=== PATIENT | female | born 1950 | race Caucasian/White ===

== ENCOUNTER 2019-11-20 13:22 | Outpatient (CLI) | payer OTHER, SELFPAY ==
--- NOTE | 2019-11-20 13:24 | ECG_ITS ---
Measurements Intervals [place] Rate: 56 P: 49 [place]: 165 QRS: -7 QRSD: 92 T: 32 QT: 401 QTc: 388 Interpretive Statements SINUS BRADYCARDIA LOW QRS VOLTAGE IN PRECORDIAL LEADS BORDERLINE R WAVE PROGRESSION, ANTERIOR LEADS BORDERLINE T WAVE ABNORMALITY- ANTERIOR LEADS BORDERLINE ECG Electronically Signed On 11-20-2019 13:48:52 MACHINE ASSISTANT by Al Garsia D.O.
== END 2019-11-20 13:23 | disposition home or self-care (01) ==
PROVIDERS: PCP Internal Medicine; Visit Provider Orthopaedic Surgery
DX: I10 Essential (primary) hypertension (principal); R00.1 Bradycardia, unspecified
CPT/HCPCS: 93005

== ENCOUNTER 2019-12-04 01:28 | Day surgery (SDC) | payer OTHER, SELFPAY ==
[2019-11-19 13:43] VITALS: BMI 25.2
[2019-12-04] VITALS (7 sets, daily range): BP systolic 119–135; BP diastolic 60–79; PULSE 54–94; RESP 14–16; TEMP 36.2–36.3; O2SAT 95–100
[2019-12-04] MEDS: LACTATED RINGERS 1,000 ML 30 ML IV CONT ×2 (10:30→16:22)
--- NOTE | 2019-12-04 11:07 | WPDANESEPPF ---
Anes - Initial Pre Proc Eval Procedure: Operation Date: 12/04/19 11:45 Proposed Procedures p Right Shoulder Arthroscopic Rotator Cuff Repair, Subacromial Decompression, Biceps Tenodesis - Mele Bowling MD Date/Time: 12/04/19 11:07 Surgeon: Mele Bowling MD Pre Op Diagnosis: Right Rotator Cuff Tear Patient Data Age: 69 Gender: F Height: 1.59 m Weight: 62.7 kg Last Vital Signs Temp 36.3 C L 12/04/19 10:30 Pulse 61 12/04/19 10:30 Resp 16 12/04/19 10:30 BP 135/71 12/04/19 10:30 Pulse Ox 97 12/04/19 10:30 Allergies Allergy/AdvReac Type Severity Reaction Status Date / Time grass pollen Allergy Unknown Itching Verified 12/04/19 10:10 poison fabrizio extract Allergy Unknown rash Verified 12/04/19 10:10 Grass Allergy Unknown Other Uncoded 12/04/19 10:10 Maple Tree Allergy Unknown Other Uncoded 12/04/19 10:10 Home Medications Medication Instructions Recorded Confirmed Type lisinopril 10 mg tablet 10 mg PO DAILY #1 tablet 09/03/19 12/04/19 Rx pantoprazole 40 mg tablet,delayed 40 mg PO QAM #1 tablet 09/03/19 12/04/19 Rx release atorvastatin 10 mg tablet 10 mg PO DAILY #90 tablet 10/26/19 12/04/19 Rx diclofenac sodium 75 mg 75 mg PO BID PRN #180 tablet 11/17/19 12/04/19 Rx tablet,delayed release bupropion HCl 300 mg PO BID 11/19/19 12/04/19 History escitalopram oxalate 20 mg tablet 20 mg PO DAILY #90 tablet 11/20/19 12/04/19 Rx Patient hx anesthesia problems: none Family hx anesthesia problems: none PMFSH Past Medical History Medical History (Updated 12/03/19 @ 11:17 by Darek Francois DO) Anxiety Andrade esophagus Cervical cancer Fracture of radius, distal, with ulna, right, closed History of wrist fracture Hyperlipidemia Hypertension Osteoporosis Rotator cuff tear, right Supraspinatus tendon tear Surgical History Surgical History H/O: hysterectomy History of surgery on left wrist (~2007) Social History Social History Smoking status: Former smoker Second hand tobacco smoke exposure: No Smoking end date: 09/30/88 Alcohol intake: current Gender identity (if verbalized by the patient): Female Anes - Eval Final PreProcedure Day of Procedure 12/04/19 11:07 Patient weight: normal Heart: regular rate and rhythm Lungs: clear to auscultation and normal air movement Airway: Mallampati scale class II Neurological: alert and oriented Last oral intake: >/= 8 hours ASA classification: III Emergent: no Anesthetic plan: proceed Anesthesia type and monitoring: general ETT and standard monitoring Informed Consent: The patient's anesthetic plan and its attendant risks and benefits were discussed with the patient/family/POA. Questions were solicited and answers provided to the satisfaction of the patient/family/POA.
--- NOTE | 2019-12-04 11:08 | WPDANESPNB ---
Anes - Peripheral Nerve Block Date/Time: 12/04/19 11:08 I have discussed with the patient/family/POA the placement of a peripheral nerve block for post-operative pain management, including associated risks, benefits, complications, and side effects. Alternative methods of post-operative analgesia were detailed. Questions were solicited and answers provided to the satisfaction of the patient/family/POA. Time-Out: A pre-procedural Time-Out was completed immediately before starting the procedure and confirmed: Patient Identification, Site, Procedure, Patient Position and the Availability of Requisite Equipment. Clinical Indications: Acute post-operative pain management requested by the operative surgeon. Nerve Block Insertion Note Anes-nerve block: interscalene right Patient position: supine Skin prep: chlorhexidine Needle: 22 gauge, stimulating, insulated echogenic needle. Needle length: 50 mm Technique: ultrasound Injectate: bupivacaine 0.5% with epi 5 mcg/ml (30cc) Observations: tolerated well Complications: none Procedure start time:: 1258 Procedure end time:: 1301
--- NOTE | 2019-12-04 11:57 | SUR.PREOP ---
Up to bathroom.
--- NOTE | 2019-12-04 12:43 | WPDHPUPDATE1 ---
History and Physical Update Update Date/Time: 12/04/19 12:43 History and Physical has been reviewed, including an updated exam of the patient. There are NO changes in the patient's condition. Risks, benefits, and alternatives have been discussed and questions answered. Patient agrees to proceed with procedure.
[2019-12-04] MEDS: ceFAZolin 2 GM/D5W 50 ML 2 GM/50 ML BAG IVPB (13:11)
--- NOTE | 2019-12-04 17:02 | PM.PROC ---
Procedure Note - Detailed Date of procedure: 12/04/19 Pre-op diagnosis: Right Rotator Cuff Tear Post-op diagnosis: other (1. rotator cuff tear 2. biceps tendinopathy ) Procedure performed: 1. Arthrosocopic rotator cuff repair. 2. Arthroscopic subacromial decompression. 3. Open biceps tenodesis. Description of procedure: Repair of subscapularis, supraspinatus and infraspinatus. Complex tear pattern with medial split and delamination of the infraspinatus. Mini-open suprapectoral soft tissue biceps tenodesis. Implants: Tornier Piton 2.8 metallic anchor. Arthroscopic bone tunnels with multiple orthocord and suture tape. Anesthesia: GETA Surgeon: Mele Bowling MD Estimated blood loss (mL): 30 Complications: None Condition: stable Disposition: PACU Findings: Preoperative antibiotics were given. An interscalene block was administered in the preoperative area. The patient was bought brought to the operating room. A general anesthetic was administered. The patient was carefully positioned in the beach chair position. The head and neck were carefully positioned. The non operative extremity was also carefully positioned. The shoulder was prepped and draped in the usual sterile fashion. Examination was performed. Standard posterior and anterior arthroscopic portals were established. Inflow was achieved with the arthroscopic pump using saline and epinephrine. The glenohumeral joint was carefully inspected. The articular cartilage was normal. There was mild degenerative fraying of the superior and posterior labrum. This was debrided. The biceps showed significant tendinosis and partial-thickness tearing also some tendency toward slight subluxation into the subscapularis tear. The tendon was released and later tenodesed at the super pectoral area. This was performed through a small split distally. Finger dissection opened up the area at the distal deltoid. The biceps was readily identified the proximal tissue was excised and found to be significantly damaged and partially torn. Tissue at the upper pectoral area was normal and the soft tissue repair with 2. Ortho cord was performed with multiple with stitches through the tendon into the biceps. The subscapularis showed high-grade articular sided tearing. Some retraction of the upper border of the tendon. Was elected to place a single metallic anchor double loaded, at the lesser tuberosity. Two simple sutures were placed and excellent anatomic repair was accomplished. Attention was turned to the subacromial space. A complete bursectomy was performed. The rotator cuff and footprint were lightly debrided. A modest acromioplasty was performed. The tear configuration was carefully assessed. The tear pattern was atypical with a type 1 tear at the posterior supraspinatus. This was not retracted. A large split occurred more medially and posteriorly into the infraspinatus. There was some delamination at the most medial aspect. A [id number] repair was performed. The tissue bridge between the tears initially was kept in situ, but was not anatomic after initial repair, and was thus excised. The [id number] repair was accomplished with multiple sutures. Care was taken to include the delaminated portion of the tendon. The repair appeared quite anatomic. At this point, 2 tunnels were created. The ArthroTunneler technique was utilized. Three sutures were passed through each tunnel. All sutures were then passed through the cuff tissue. Combination of tape suture and ortho cord was used. It rip stop technique with the 2nd and 5th sutures was used. Care was taken to limit tension on the repair. The sutures were tied arthroscopically. The arthroscopic instruments were removed. The wounds were closed with 3-0 Monocryl subcuticular suture and steri strips. There were no complications. A sling was applied and the patient brought to the recovery room.
== END 2019-12-04 18:00 | disposition home or self-care (01) ==
PROVIDERS: PCP Internal Medicine; Visit Provider Orthopaedic Surgery
PROC: (CPT 29805; principal; 2019-12-04 11:45)
DX: M75.101 Unspecified rotator cuff tear or rupture of right shoulder, not specified as traumatic (principal); M75.21 Bicipital tendinitis, right shoulder; G89.18 Other acute postprocedural pain; I10 Essential (primary) hypertension; E78.5 Hyperlipidemia, unspecified; F41.9 Anxiety disorder, unspecified; M81.0 Age-related osteoporosis without current pathological fracture; Z85.41 Personal history of malignant neoplasm of cervix uteri; Z87.891 Personal history of nicotine dependence
CPT/HCPCS: 29827; 29826; 23430; 64415; A4565; C1713; J0690; J1100; J2250; J2405; J2704; J3010; J7120

== ENCOUNTER 2020-08-09 16:19 | Emergency (ER) | payer OTHER, SELFPAY ==
--- NOTE | 2020-08-09 17:25 | PC.NURSE ---
No answer when patient called in the waiting room.
--- NOTE | 2020-08-09 17:26 | PC.NURSE ---
call to waiting room, no answer
--- NOTE | 2020-08-09 17:39 | PC.NURSE ---
call to waiting room, no answer. pt not in waiting room bathroom or surrounding areas out of ED. assume pt left without being triaged. No contact with pt per this RN.
== END 2020-08-09 17:40 | disposition left against medical advice (07) ==
LOC: ANHED 08-10 09:48
PROVIDERS: PCP Internal Medicine
DX: Z53.21 Procedure and treatment not carried out due to patient leaving prior to being seen by health care provider (principal)
CPT/HCPCS: 99199

== ENCOUNTER 2020-08-12 13:47 | Emergency (ER) | payer OTHER, SELFPAY ==
--- NOTE | 2020-08-12 13:48 | ECG_ITS ---
Measurements Intervals [place] Rate: 65 P: 65 [place]: 168 QRS: 21 QRSD: 96 T: 59 QT: 388 QTc: 405 Interpretive Statements SINUS RHYTHM DELAYED PRECORDIAL R/S TRANSITION BORDERLINE ECG Electronically Signed On 08-12-2020 16:41:47 CREDIT RISK ANALYST by Al Garsia D.O.
[2020-08-12 14:05] VITALS: BP 147/65; PULSE 65; RESP 18; TEMP 37.3; O2SAT 100
[2020-08-12 14:29] LABS: Basophils Percent Auto 0.4 % (0.2-1.2); Eosinophils Absolute Auto 0.1 K/mm3 (0-0.3); Eosinophils Percent Auto 1.7 % (0-4.4); Hematocrit 38.8 % (37.0-47.0); Hemoglobin 13.3 g/dL (12.0-15.0); Immature Granulocyte Absolute 0.01 K/mm3 (0.00-0.031); Immature Granulocyte Percent A 0.2 % (0-0.5); Lymphocytes Percent Auto 27.1 % (18.3-44.2); Mean Corpuscular HGB Conc 34.3 g/dl (32-36); Mean Corpuscular Hemoglobin 31.7 pg (26-34); Mean Corpuscular Volume 92.4 fl (80-100); Mean Platelet Volume 9.7 fl (7.4-10.4); Monocytes Absolute Auto 0.5 K/mm3 (0.1-0.6); Monocytes Percent Auto 10.6 % (2.6-8.5); Neutrophils Absolute Auto 2.9 K/mm3 (1.3-6.7); Platelet Count Result 275 k/mm3 (150-375); Red Cell Distribution Width 12.2 % (11.5-14.5); White Blood Count 4.8 K/mm3 (4.5-10.0)
[2020-08-12 14:39] LABS: INR 0.9; Prothrombin Time 12.7 Seconds (11.1-14.7)
[2020-08-12 14:40] LABS: Partial Thromboplastin Time 33.8 SECONDS (22.3-36.8)
[2020-08-12 14:42] LABS: Anion Gap 10 mmol/L (8-16); Blood Urea Nitrogen 19 mg/dL (7-17); Calcium 9.1 mg/dL (8.4-10.2); Carbon Dioxide 26 mmol/L (22-30); Chloride 99 mmol/L (98-107); Estimated CRCL calculation 33 ml/min; Estimated Glomerular Filt Rate 49; Glucose 96 mg/dL (65-105); Potassium 4.3 mmol/L (3.4-5.0); Sodium 135 mmol/L (137-145)
[2020-08-12 14:52] LABS: Troponin I < 0.012 ng/mL (0.000-0.034)
--- NOTE | 2020-08-12 16:26 | ED.CHESTPAIN ---
HPI - Chest Pain General Chief Complaint: Chest Pain Stated Complaint: CP Time Seen by Provider: 08/12/20 16:02 History of Present Illness HPI narrative: 69 yo female w/ h/o htn presents to the ED for HTn. She reports that she has been having problems with her blood pressure recently leading to an increase in her lisinopril and being started on a new medication. Today she checked her blood pressure and it was high so she became concerned. She was even more concerned because a few days ago she developed a spontaneous subconjunctival hemorrhage which she thought was related to her blood pressure. She does report intermittent brief pinching sensations in her chest, non currently. Related Data Allergies Allergy/AdvReac Type Severity Reaction Status Date / Time grass pollen Allergy Unknown Itching Verified 08/12/20 16:39 poison fabrizio extract Allergy Unknown rash Verified 08/12/20 16:39 Maple [place] Allergy Unknown Other Uncoded 07/27/20 15:10 Review of Systems Review of Systems: All systems reviewed & are unremarkable except as noted in HPI and below Constitutional: Constitutional: Denies fever(s) and Denies weakness Cardiovascular: Cardiovascular: Reports rapid heart rate Respiratory: Respiratory: Denies cough and Denies dyspnea Gastrointestinal: Gastrointestinal: Denies abdominal pain, Denies nausea and Denies vomiting Neurologic: Reports dizziness, Denies numbness and Denies weakness PMFSH Past Medical History Medical History Anxiety Andrade esophagus Cervical cancer Fatigue Fracture of radius, distal, with ulna, right, closed History of cervical cancer History of wrist fracture Hyperlipidemia Hypertension Osteoporosis Rotator cuff tear, right Supraspinatus tendon tear Surgical History Surgical History H/O: hysterectomy History of surgery on left wrist (~2007) Social History Social History Smoking status: Former smoker Second hand tobacco smoke exposure: No Smoking end date: 09/30/88 Alcohol intake: current Gender identity (if verbalized by the patient): Female Exam Const: General: healthy appearing, no acute distress and alert Orientation/consciousness: patient oriented x3 HENMT: Head: normal to inspection Eyes: Conjunctivae: conjunctival abnormality right subconjunctival hemorrhage Pupils: Equal, round and reactive pupils present EOM: EOMs intact bilaterally Neck: Neck: normal visual inspection and no lymphadenopathy Chest: Chest palpation & inspection: no tenderness Resp: Effort & Inspection: normal respiratory effort Auscultation: clear to auscultation bilaterally, no rales, no rhonchi and no wheezes Cardio: Jugular venous distension: no JVD Rate: regular rate Rhythm: regular rhythm Heart sounds: no murmurs GI: Inspection: non-distended GI Palp: Yes Soft to palpation and No Tenderness to palpation present (GI) Skin: General skin exam: normal color Neuro: General: patient oriented x3 and moves all extremities Speech: normal speech Extrem: General: no edema Psych: Appearance: well kempt Affect: Anxious affect present Course Vital Signs Vital signs: Vital Signs Temperature 37.3 C 08/12/20 14:05 Pulse Rate 65 08/12/20 14:05 Respiratory Rate 18 08/12/20 14:05 Blood Pressure 147/65 H 08/12/20 14:05 Pulse Oximetry 100 08/12/20 14:05 Temperature 37.3 C 08/12/20 14:05 Pulse Rate 66 08/12/20 17:06 Respiratory Rate 19 08/12/20 17:06 Blood Pressure 126/70 08/12/20 17:06 Pulse Oximetry 97 08/12/20 17:06 MDM - Chest Pain Differential Diagnosis Differential diagnosis: Likely other (htn, anxiety) Medical Records Data Attestation: I reviewed the patient's medical records. Lab Data Attestation: I reviewed the patient's lab results. Result diagrams: 08/12/20 14:20
[2020-08-12] MEDS: ASPIRIN 81 MG CHEWABLE TABLET 324 MG PO (16:29)
[2020-08-12 16:34] VITALS: BP 145/103; PULSE 66; RESP 20; O2SAT 98
[2020-08-12 16:36] VITALS: PULSE 65
[2020-08-12 17:06] VITALS: BP 126/70; PULSE 66; RESP 19; O2SAT 97
[2020-08-12 17:12] LABS: Troponin I < 0.012 ng/mL (0.000-0.034)
== END 2020-08-12 17:25 | disposition home or self-care (01) ==
PROVIDERS: Emergency Provider Emergency Medicine; PCP Internal Medicine
DX: F41.9 Anxiety disorder, unspecified (principal); I10 Essential (primary) hypertension; K22.70 Barrett's esophagus without dysplasia; Z85.41 Personal history of malignant neoplasm of cervix uteri; E78.5 Hyperlipidemia, unspecified; M81.0 Age-related osteoporosis without current pathological fracture; Z87.891 Personal history of nicotine dependence; R94.31 Abnormal electrocardiogram [ECG] [EKG]
CPT/HCPCS: 36415; 80048; 84484; 85025; 85610; 85730; 93005; 99284; A9270

== ENCOUNTER 2021-02-20 11:00 | Emergency (ER) | payer OTHER, SELFPAY ==
--- NOTE | 2021-02-20 11:11 | ED.FEMALEGU ---
HPI - Female Genitourinary General Chief complaint: Urogenital-Female Stated complaint: uti Time Seen by Provider: 02/20/21 11:11 Source: patient Mode of arrival: ambulatory History of Present Illness HPI Narrative: PATIENT PRESENTS WITH BURNING WITH URINATION FOR THE PAST WEEK. NO BACK PAIN NO FLANK PAIN NO GROSS HEMATURIA NO VAGINAL DISCHARGE AND NO CONCERN FOR STD. MD elicited complaint: dysuria and UTI Related Data Allergies Allergy/AdvReac Type Severity Reaction Status Date / Time grass pollen Allergy Unknown Itching Verified 08/22/20 14:50 poison fabrizio extract Allergy Unknown rash Verified 08/22/20 14:50 [place] Allergy Unknown Other Uncoded 08/22/20 14:50 Review of Systems Review of Systems: Narrative: CONSTITUTIONAL: Denies fever, chills, or sweats. EYES: Denies visual changes, redness, or discharge. ENT: Denies rhinorrhea, congestion, sore throat, or otalgia. CARDIOVASCULAR: Denies chest pain, palpitations, or edema. RESPIRATORY: Denies cough or dyspnea. GASTROINTESTINAL: Denies abdominal pain, nausea, vomiting, or diarrhea. GENITOURINARY: Denies dysuria or hematuria. SKIN: Denies rash or itching. MUSCULOSKELETAL: Denies back pain, joint pain, or myalgia. NEUROLOGIC: Denies headache, numbness, or weakness. PSYCHIATRIC: Denies anxiety or depression. [facility] Past Medical History Medical History (Updated 02/20/21 @ 11:23 by PEMA Bishop) Anemia Anxiety Andrade esophagus Cervical cancer Depression with anxiety Fatigue Fracture of radius, distal, with ulna, right, closed History of cervical cancer History of wrist fracture Hyperlipidemia Hypertension Osteopenia Osteoporosis Rotator cuff tear, right Seasonal allergies Supraspinatus tendon tear Vitamin D deficiency Surgical History Surgical History H/O: hysterectomy History of surgery on left wrist (~2007) Social History Social History Smoking status: Former smoker Second hand tobacco smoke exposure: No Smoking end date: 09/30/88 Alcohol intake: current Gender identity (if verbalized by the patient): Female Comments At time of signature, agree with nursing past medical, surgical, social and family history. There is no relevant family history pertinent to the presenting complaint Exam Narrative: Exam Narrative: GENERAL: Well-appearing, well-nourished, and in no acute distress. HEAD: Normocephalic, atraumatic. EYES: PERRLA and EOMI. ENT: Nares clear, no rhinorrhea or epistaxis. Mucous membranes moist. NECK: Supple. CHEST: Clear to auscultation. No respiratory distress. HEART: Regular rate and rhythm. No murmur heard. Normal peripheral pulses. ABDOMEN: Soft, nontender, nondistended, normal active bowel sounds. EXTREMITIES: Normal range of motion. No edema. SKIN: Warm, dry, no rash. NEURO: No focal deficits. Alert and oriented x3. Ricardo Coma Scale Eye Opening: Spontaneous 4 [place] Coma Scale Motor: Obeys Commands 6 [place] Coma Scale Verbal: Oriented 5 Ricardo Coma Scale Total 15 Course Vital Signs Vital signs: Vital Signs Temperature 36.9 C 02/20/21 11:15 Pulse Rate 59 L 02/20/21 11:15 Respiratory Rate 16 02/20/21 11:15 Blood Pressure 140/65 02/20/21 11:15 Pulse Oximetry 97 02/20/21 11:15 Temperature 36.9 C 02/20/21 11:15 Pulse Rate 59 L 02/20/21 11:15 Respiratory Rate 16 02/20/21 11:15 Blood Pressure 140/65 02/20/21 11:15 Pulse Oximetry 97 02/20/21 11:15 Please AGNES schedule a followup visit with your personal physician for further evaluation and treatment. Including recheck and discussion of your blood pressure. If your symptoms persist, change or worsen significantly before you can contact your personal physician then please, without delay, go to the emergency department for further evaluation MDM - Female Genitourinary Differential Diagnosis Differential diagnosis:
[2021-02-20 11:15] VITALS: BP 140/65; PULSE 59; RESP 16; TEMP 36.9; O2SAT 97
== END 2021-02-20 11:29 | disposition home or self-care (01) ==
PROVIDERS: Emergency Provider Nurse Practitioner Family; PCP Family Medicine
DX: N39.0 Urinary tract infection, site not specified (principal); F41.9 Anxiety disorder, unspecified; F32.9 Major depressive disorder, single episode, unspecified; K22.70 Barrett's esophagus without dysplasia; E78.5 Hyperlipidemia, unspecified; I10 Essential (primary) hypertension; M81.0 Age-related osteoporosis without current pathological fracture; M85.80 Other specified disorders of bone density and structure, unspecified site
CPT/HCPCS: 81003; 87077; 87086; 87186; 99213; G0463

== ENCOUNTER 2021-10-26 08:27 | Outpatient (CLI) | payer OTHER, SELFPAY ==
--- NOTE | ~2021-10-26 | MM_ITS ---
EXAMINATION: MM screening alberto BI w latoya HISTORY: Screening mammogram TECHNIQUE: Craniocaudal and mediolateral oblique 3-D tomosynthesis images were obtained and synthetic 2-D images were generated. CAD analysis was submitted and interpreted. COMPARISON: 09/12/2007 BREAST PARENCHYMAL COMPOSITION: There are scattered areas of fibroglandular density. FINDINGS: RIGHT BREAST: There is no evidence of suspicious mass, calcification, or architectural distortion to suggest malignancy. There has been no significant interval change. LEFT BREAST: There is architectural distortion the middle third of the upper breast suspicious mass o r calcification are identified. IMPRESSION: 1. Left breast architectural distortion which may represent surgical change or patient's current base line since no interval comparison is available since 2006. 2. Comparison with prior mammograms is necessary. BI-RADS Category 0: Incomplete: Needs comparison with prior mammograms. Reviewed, dictated and finalized at location A. 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 Left breast architectural distortion which may represent surgical change or patient's current baseline since no interval comparison is available since 2006 . 2. Comparison with prior mammograms is necessary. BI-RADS Category 0: Incomplete: Needs comparison with prior mammograms.
== END 2021-10-26 08:28 | disposition home or self-care (01) ==
LOC: ANHIMG 08:30
PROVIDERS: PCP Nurse Practitioner Family; Visit Provider Nurse Practitioner Family
DX: Z12.31 Encounter for screening mammogram for malignant neoplasm of breast (principal); R92.8 Other abnormal and inconclusive findings on diagnostic imaging of breast
CPT/HCPCS: 77063; 77067

== ENCOUNTER → 2022-03-12 13:52 | Outpatient (CLI) | payer OTHER, SELFPAY ==
--- NOTE | ~2022-03-12 | XR_ITS ---
XR knee LT min 4V DATE: 03/12/2022 14:23 INDICATION: Left knee pain for one year TECHNIQUE: Olla, AP, PA and lateral views COMPARISON: None FINDINGS: There is minimal loss of height at the medial compartment joint space. No fracture or dislocation or joint effusion is evident. No radiopaque intra-articular loose body or chondrocalcinosis. No periosteal reaction or bone destruction. IMPRESSION: Minimal degenerative change Reviewed, dictated and finalized at location A. IMPRESSION: Minimal degenerative change
--- NOTE | ~2022-03-12 | XR_ITS ---
XR knee RT min 4V DATE: 03/12/2022 14:24 INDICATION: Right knee pain for one year TECHNIQUE: Benedict, AP, PA and lateral views COMPARISON: None FINDINGS: Mild loss of height of medial compartment joint space and slight particular spurring of the medial tibial total toe, consistent with mild osteoarthritis. No fracture or dislocation or joint effusion. No radiopaque intra-articular loose body or chondrocalc inosis. No periosteal reaction or bone destruction. IMPRESSION: Mild medial compartment osteoarthritis Reviewed, dictated and finalized at location A.
== END ==
PROVIDERS: PCP Family Medicine; Visit Provider Nurse Practitioner Family
DX: M17.0 Bilateral primary osteoarthritis of knee (principal)
CPT/HCPCS: 73564

== ENCOUNTER 2022-06-06 13:16 | Emergency (ER) | payer OTHER, SELFPAY ==
[2022-06-06 13:27] VITALS: BP 111/68; PULSE 64; RESP 18; TEMP 36.4; O2SAT 99
--- NOTE | 2022-06-06 13:33 | ED.FEMALEGU ---
HPI - Female Genitourinary General Chief complaint: Urogenital-Female Stated complaint: . Time Seen by Provider: 06/06/22 13:33 Source: patient and RN notes reviewed Mode of arrival: ambulatory Limitations: no limitations History of Present Illness HPI Narrative: 71 y/o female presented for c/o urinary pressure and urgency for 3 days. Denies associated nausea, vomiting, abdominal or flank pain, fever or chills. Took AZO yesterday. Related Data Home Medications Medication Instructions Recorded Confirmed diclofenac sodium 75 mg 75 mg PO BID 03/01/21 06/06/22 tablet,delayed release Allergies Allergy/AdvReac Type Severity Reaction Status Date / Time grass pollen Allergy Unknown Itching Verified 06/06/22 13:33 poison fabrizio extract Allergy Unknown rash Verified 06/06/22 13:33 [place] Allergy Unknown Other Uncoded 06/06/22 13:33 Review of Systems Review of Systems: CONSTITUTIONAL: Denies body aches, fever, chills, or sweats. CARDIOVASCULAR: Denies chest pain, palpitations, or edema. RESPIRATORY: Denies cough or dyspnea. GASTROINTESTINAL: Denies abdominal pain, nausea, vomiting, or diarrhea. GENITOURINARY: Reports dysuria, frequency, urgency, denies hematuria, flank pain SKIN: Denies rash, itching, or wounds. MUSCULOSKELETAL: Denies back pain or myalgia. [facility] Past Medical History Medical History Adult BMI 25.0-25.9 kg/sq m Anemia Anxiety Andrade esophagus BMI 26.0-26.9,adult Breast cancer screening Cervical cancer Chronic kidney disease, stage 3 unspecified Depression with anxiety Fatigue Fracture of radius, distal, with ulna, right, closed History of cervical cancer History of wrist fracture Hyperlipidemia Hypertension Left knee pain Major depression Osteopenia Osteoporosis Post-nasal drip Right knee pain Rotator cuff tear, right Seasonal allergies Serum potassium elevated Supraspinatus tendon tear Urinary urgency Vitamin D deficiency Surgical History Surgical History H/O: hysterectomy History of surgery on left wrist (~2007) Social History Social History Smoking status: Former smoker Second hand tobacco smoke exposure: No Smoking end date: 09/30/88 Alcohol intake: current Gender identity (if verbalized by the patient): Female Comments At time of signature, I have reviewed and agree with nursing past medical, surgical, social and family history unless otherwise noted. Please see nursing chart for further information. There is no relevant family history pertinent to the presenting complaint Exam Narrative: GENERAL: Well-appearing and in no acute distress. ENT: Mucous membranes pink and moist. CHEST: Clear to auscultation. HEART: Regular rate and rhythm. ABDOMEN: Soft, nontender, nondistended, normal active bowel sounds. No CVA tenderness SKIN: Warm, dry, no rash. NEURO: Alert and oriented x3. Gait steady. PSYCH: Normal affect. Course Course Emergency Course: Patient is aware of diagnosis, understands and agrees to treatment plan. Anticipatory guidance given. Patient agrees to follow-up as directed and is aware of reasons to seek care at the emergency department. Portions of this record may have been created with voice recognition software Level of Care: Express Care Visit Vital Signs Vital signs: Vital Signs Temperature 97.6 F 06/06/22 13:27 Pulse Rate 64 06/06/22 13:27 Respiratory Rate 18 06/06/22 13:27 Blood Pressure 111/68 06/06/22 13:27 Pulse Oximetry 99 06/06/22 13:27 Oxygen Delivery Room Air 06/06/22 13:27 Temperature 97.6 F 06/06/22 13:27 Pulse Rate 64 06/06/22 13:27 Respiratory Rate 18 06/06/22 13:27 Blood Pressure 111/68 06/06/22 13:27 Pulse Oximetry 99 06/06/22 13:27 Oxygen Delivery Room Air 06/06/22 13:27 Reviewed MDM - Female Ge
== END 2022-06-06 14:03 | disposition home or self-care (01) ==
PROVIDERS: Emergency Provider Nurse Practitioner Family; PCP Nurse Practitioner Family
DX: N39.0 Urinary tract infection, site not specified (principal); Z87.891 Personal history of nicotine dependence; K22.70 Barrett's esophagus without dysplasia; I12.9 Hypertensive chronic kidney disease with stage 1 through stage 4 chronic kidney disease, or unspecified chronic kidney disease; N18.30 Chronic kidney disease, stage 3 unspecified; Z85.41 Personal history of malignant neoplasm of cervix uteri; E78.5 Hyperlipidemia, unspecified; M81.0 Age-related osteoporosis without current pathological fracture; M85.80 Other specified disorders of bone density and structure, unspecified site; F41.9 Anxiety disorder, unspecified; F32.9 Major depressive disorder, single episode, unspecified
CPT/HCPCS: 81003; 87077; 87086; 87186; 99213; G0463

== ENCOUNTER 2022-07-10 00:47 | Day surgery (SDC) | payer OTHER, SELFPAY ==
[2022-07-05 13:45] VITALS: BMI 24.4
[2022-07-10 11:22] VITALS: BP 119/60; PULSE 65; RESP 16; TEMP 36.3; O2SAT 98
--- NOTE | 2022-07-10 11:23 | WPDANESEPPF ---
Anes - Initial Pre Proc Eval Procedure: Operation Date: 07/10/22 12:30 Proposed Procedures p Esophagogastroduodenoscopy EGD - Parveen Cheung MD Date/Time: 07/10/22 11:23 Surgeon: Parveen Cheung MD Pre Op Diagnosis: Barretts' esophagus Patient Data Age: 71 Gender: F Height: 1.55 m Weight: 63 kg Last Vital Signs Temp 97.4 F L 07/10/22 11: Pulse 65 07/10/22 11:22 Resp 16 07/10/22 11:22 BP 119/60 07/10/22 11:22 Pulse Ox 98 07/10/22 11:22 O2 Del Method Room Air 07/10/22 11:22 Allergies Allergy/AdvReac Type Severity Reaction Status Date / Time grass pollen Allergy Unknown Itching Verified 07/10/22 11:21 poison fabrizio extract Allergy Unknown rash Verified 07/10/22 11:21 Maple Tree Allergy Unknown Other Uncoded 06/06/22 13:33 Home Medications Medication Instructions Recorded Confirmed Type diclofenac sodium 75 mg 75 mg PO DAILY 03/01/21 07/05/22 History tablet,delayed release escitalopram oxalate 20 mg tablet 20 mg PO DAILY #90 tabs 01/22/22 07/05/22 Rx bupropion HCl 300 mg 24 hr tablet, 300 mg PO QAM #90 tabs 03/12/22 07/05/22 Rx extended release (Wellbutrin XL) lisinopril 20 mg tablet 20 mg PO DAILY 90 days #90 tabs 03/12/22 07/05/22 Rx pantoprazole 40 mg tablet,delayed 40 mg PO QAM #90 tabs 03/12/22 07/05/22 Rx release cephalexin 500 mg capsule 500 mg PO Q12H #20 caps 07/03/22 07/05/22 Rx atorvastatin 10 mg tablet 10 mg PO DAILY 07/05/22 07/05/22 History Patient hx anesthesia problems: none Family hx anesthesia problems: none Results Review: All pre-operative results and documents have been reviewed as part of the pre-operative evaluation. [facility] Past Medical History Medical History (Updated 07/03/22 @ 12:23 by Maryanne Cardoza NP) Adult BMI 25.0-25.9 kg/sq m Anemia Anxiety Andrade esophagus BMI 26.0-26.9,adult Breast cancer screening Cervical cancer Chronic kidney disease (CKD) stage G3b/A1, moderately decreased glomerular filtration rate (GFR) between 30-44 mL/min/1.73 square meter and albuminuria creatinine ratio less than 30 mg/g Chronic kidney disease, stage 3 unspecified Depression with anxiety Fatigue Fracture of radius, distal, with ulna, right, closed History of cervical cancer History of wrist fracture Hyperlipidemia Hypertension Left knee pain Major depression Major depressive disorder, single episode, mild Osteopenia Osteoporosis Post-nasal drip Right knee pain Rotator cuff tear, right Seasonal allergies Serum potassium elevated Supraspinatus tendon tear Urinary urgency Vitamin D deficiency Surgical History Surgical History H/O: hysterectomy History of surgery on left wrist (~2007) Social History Social History Smoking packs per day: 0.5 Smoking cigarettes per day: 10.0 Years smoked: 20 Smoking pack-years: 10.00 Smoking status: Former smoker Tobacco type: cigarettes Second hand tobacco smoke exposure: No Smoking end date: 09/30/88 Alcohol intake: current Alcohol use details: occasional glass of wine Substance use: never Substance use type: does not use Living arrangements: alone Gender identity (if verbalized by the patient): Female Spiritual care concerns: No Anes - Eval Final PreProcedure Day of Procedure 07/10/22 11:23 Patient weight: normal Heart: regular rate and rhythm Lungs: clear to auscultation Airway: Mallampati scale class II Neurological: alert and oriented Last oral intake: >/= 8 hours ASA classification: III Emergent: no Anesthetic plan: proceed Anesthesia type and monitoring: general GIVS and standard monitoring Results Review: All pre-operative results and documents have been reviewed as part of the pre-operative evaluation. Informed Consent: The patient's anesthetic plan and its attendant risks and benefits were discussed with the patient/family/POA. Questions we
[2022-07-10] MEDS: LACTATED RINGERS 1,000 ML 150 ML IV CONT (11:33)
--- NOTE | 2022-07-10 12:25 | PM.HPGS ---
History of Present Illness History of Present Illness Consent: Risks, benefits, and alternatives have been discussed and questions answered. Patient agrees to proceed with procedure. Chief complaint: gerd Narrative: Angela Mcmillan is a 71 year old female Presents for EGD On referral from primary care service. Patient gives a history of acid reflux for some time. Many years ago followed by Dr. Kwan in [place] was told she might have had Andrade's esophagus. Apparently he did a follow-up EGD on her about 6 years ago that was unremarkable and excluded this diagnosis. Patient seen by Dr. Olea at [facility] 3 years ago EGD was unremarkable biopsies revealed no evidence of Andrade's esophagus. She also had a colonoscopy at that time which revealed internal hemorrhoids. Patient is referred today for follow-up examination. She states heartburn is controlled with use Prilosec taken on a daily basis. She stays on a bland diet. She denies any dysphagia or bleeding. She has no heartburn per on these medications. Family history is noncontributory. Review of Systems Review of Systems: Review of systems noncontributory. [facility] Past Medical History Medical History (Updated 07/10/22 @ 12:28 by Parveen Cheung MD) Adult BMI 25.0-25.9 kg/sq m Anemia Anxiety Andrade esophagus BMI 26.0-26.9,adult Breast cancer screening Cervical cancer Chronic kidney disease (CKD) stage G3b/A1, moderately decreased glomerular filtration rate (GFR) between 30-44 mL/min/1.73 square meter and albuminuria creatinine ratio less than 30 mg/g Chronic kidney disease, stage 3 unspecified Depression with anxiety Fatigue Fracture of radius, distal, with ulna, right, closed History of cervical cancer History of wrist fracture Hyperlipidemia Hypertension Left knee pain Major depression Major depressive disorder, single episode, mild Osteopenia Osteoporosis Post-nasal drip Right knee pain Rotator cuff tear, right Seasonal allergies Serum potassium elevated Supraspinatus tendon tear Urinary urgency Vitamin D deficiency Surgical History Surgical History H/O: hysterectomy History of surgery on left wrist (~2007) Social History Social History Smoking packs per day: 0.5 Smoking cigarettes per day: 10.0 Years smoked: 20 Smoking pack-years: 10.00 Smoking status: Former smoker Tobacco type: cigarettes Second hand tobacco smoke exposure: No Smoking end date: 09/30/88 Alcohol intake: current Alcohol use details: occasional glass of wine Substance use: never Substance use type: does not use Living arrangements: alone Gender identity (if verbalized by the patient): Female Spiritual care concerns: No Meds Home Medications and Allergies Home Medications Medication Instructions Recorded Confirmed Type diclofenac sodium 75 mg 75 mg PO DAILY 03/01/21 07/05/22 History tablet,delayed release escitalopram oxalate 20 mg tablet 20 mg PO DAILY #90 tabs 01/22/22 07/05/22 Rx bupropion HCl 300 mg 24 hr tablet, 300 mg PO QAM #90 tabs 03/12/22 07/05/22 Rx extended release (Wellbutrin XL) lisinopril 20 mg tablet 20 mg PO DAILY 90 days #90 tabs 03/12/22 07/05/22 Rx pantoprazole 40 mg tablet,delayed 40 mg PO QAM #90 tabs 03/12/22 07/05/22 Rx release cephalexin 500 mg capsule 500 mg PO Q12H #20 caps 07/03/22 07/05/22 Rx atorvastatin 10 mg tablet 10 mg PO DAILY 07/05/22 07/05/22 History Allergies Allergy/AdvReac Type Severity Reaction Status Date / Time grass pollen Allergy Unknown Itching Verified 07/10/22 11:21 poison fabrizio extract Allergy Unknown rash Verified 07/10/22 11:21 Maple [place] Allergy Unknown Other Uncoded 06/06/22 13:33 Vital Signs Vital Signs - 24 hr 07/10/22 11:22 Temperature 97.4 F L Pulse Rate 65 Respiratory Rate 16 Blood Pressure 119/60 Pulse Oximetry 98 Oxygen Delivery Room
[2022-07-10 12:56] VITALS: BP 96/50; PULSE 49; RESP 14; O2SAT 96
[2022-07-10 13:06] VITALS: BP 107/64; PULSE 54; RESP 19; O2SAT 100
[2022-07-10 13:17] VITALS: BP 127/74; PULSE 52; RESP 21; O2SAT 100
== END 2022-07-10 13:31 | disposition home or self-care (01) ==
PROVIDERS: PCP Nurse Practitioner Family; Visit Provider Internal Medicine Gastroenterology
PROC: 0DJ08ZZ Inspection of Upper Intestinal Tract, Via Natural or Artificial Opening Endoscopic (ICD-10-PCS; CPT 43235; principal; 2022-07-10 12:30)
DX: K21.00 Gastro-esophageal reflux disease with esophagitis, without bleeding (principal); K22.10 Ulcer of esophagus without bleeding; D64.9 Anemia, unspecified; F41.9 Anxiety disorder, unspecified; I12.9 Hypertensive chronic kidney disease with stage 1 through stage 4 chronic kidney disease, or unspecified chronic kidney disease; N18.32 Chronic kidney disease, stage 3b; F32.A Depression, unspecified; R53.83 Other fatigue; Z85.41 Personal history of malignant neoplasm of cervix uteri; F32.0 Major depressive disorder, single episode, mild; M19.90 Unspecified osteoarthritis, unspecified site; M81.0 Age-related osteoporosis without current pathological fracture; E55.9 Vitamin D deficiency, unspecified; Z87.891 Personal history of nicotine dependence
CPT/HCPCS: 43239; 88305; J2001; J2704; J7120

== ENCOUNTER 2022-12-19 11:22 | Emergency (ER) | payer MEDICARE, SELFPAY ==
[2022-12-19 11:40] VITALS: BP 148/73; PULSE 57; RESP 16; TEMP 36.6; O2SAT 98
--- NOTE | 2022-12-19 12:13 | ED.FEMALEGU ---
HPI - Female Genitourinary General Chief complaint: Urogenital-Female Stated complaint: uti symptoms Time Seen by Provider: 12/19/22 12:13 Source: patient Mode of arrival: ambulatory Limitations: no limitations History of Present Illness HPI Narrative: 72-year-old female presents with complaint of urinary frequency, urgency, dysuria started this morning. Afebrile. Denies back pain. No nausea vomiting diarrhea. Patient reports that she was out of town for the weekend had a bed and breakfast and was in the hot tub. Reports reports a history of UTIs related to hot tub usage. All systems reviewed and negative except as noted above. Related Data Allergies Allergy/AdvReac Type Severity Reaction Status Date / Time grass pollen Allergy Unknown Itching Verified 12/19/22 11:57 poison fabrizio extract Allergy Unknown rash Verified 12/19/22 11:57 [place] Allergy Unknown Other Uncoded 12/19/22 11:57 Review of Systems Review of Systems: CONSTITUTIONAL: Denies fever, chills, or sweats. EYES: Denies visual changes, redness, or discharge. ENT: Denies rhinorrhea, congestion, sore throat, or otalgia. CARDIOVASCULAR: Denies chest pain, palpitations, or edema. RESPIRATORY: Denies cough or dyspnea. GASTROINTESTINAL: Denies abdominal pain, nausea, vomiting, or diarrhea. GENITOURINARY: Reports dysuria, frequency, urgency. Denies hematuria. SKIN: Denies rash or itching. MUSCULOSKELETAL: Denies back pain, joint pain, or myalgia. NEUROLOGIC: Denies headache, numbness, or weakness. PSYCHIATRIC: Denies anxiety or depression. All other systems reviewed are negative, except as documented in HPI. [facility] Past Medical History Medical History (Updated 12/19/22 @ 12:21 by Lianet Haddad NP) Adult BMI 25.0-25.9 kg/sq m Anemia Anxiety Andrade esophagus BMI 26.0-26.9,adult Breast cancer screening Cervical cancer Chronic kidney disease (CKD) stage G3b/A1, moderately decreased glomerular filtration rate (GFR) between 30-44 mL/min/1.73 square meter and albuminuria creatinine ratio less than 30 mg/g Chronic kidney disease, stage 3 unspecified COVID-19 08/16/22 Depression with anxiety Fatigue Fracture of radius, distal, with ulna, right, closed History of cervical cancer History of wrist fracture Hyperlipidemia Hypertension Left knee pain Major depression Major depressive disorder, single episode, mild Osteopenia Osteoporosis Post-nasal drip Right knee pain Rotator cuff tear, right Seasonal allergies Serum potassium elevated Supraspinatus tendon tear Urinary urgency Vitamin D deficiency Surgical History Surgical History H/O: hysterectomy History of surgery on left wrist (~2007) Social History Social History (Updated 10/03/22 @ 13:20 by Soraida Sheldon MA) Smoking packs per day: 0.5 Smoking cigarettes per day: 10.0 Years smoked: 20 Smoking pack-years: 10.00 Smoking status: Former smoker Tobacco type: cigarettes Second hand tobacco smoke exposure: No Smoking end date: 09/30/88 Alcohol intake: current Alcohol use details: occasional glass of wine Substance use: never Substance use type: does not use Lack of Transportation: No Lack of Food: Never True Current Housing: I Have Housing Concerned About Future Housing: No Difficulty Paying Gas/Electric Bills: No Difficulty Paying for Meds: No Currently Unemployed: No Education: Don't Know Difficulty w/ Childcare or Family Care: No Living arrangements: alone Gender identity (if verbalized by the patient): Female Spiritual care concerns: No Comments At time of signature, agree with nursing past medical, surgical, social and family history. There is no relevant family history pertinent to the presenting complaint. Exam Narrative: GENERAL: This is a well-nourished, well-developed patient, in no apparent distress. HEAD: normocephalic, atraumatic. EYES: PERRL. Sclera clear/wh
== END 2022-12-19 12:23 | disposition home or self-care (01) ==
PROVIDERS: Emergency Provider Nurse Practitioner Family; PCP Nurse Practitioner Family
DX: N39.0 Urinary tract infection, site not specified (principal); Z87.891 Personal history of nicotine dependence; F41.9 Anxiety disorder, unspecified; K22.70 Barrett's esophagus without dysplasia; E78.5 Hyperlipidemia, unspecified; I12.9 Hypertensive chronic kidney disease with stage 1 through stage 4 chronic kidney disease, or unspecified chronic kidney disease; N18.32 Chronic kidney disease, stage 3b; M81.0 Age-related osteoporosis without current pathological fracture; M85.80 Other specified disorders of bone density and structure, unspecified site; F32.0 Major depressive disorder, single episode, mild; Z85.41 Personal history of malignant neoplasm of cervix uteri
CPT/HCPCS: 81003; 87077; 87086; 87186; 99213; G0463

== ENCOUNTER 2023-01-10 17:47 | Emergency (ER) | payer MEDICARE, SELFPAY ==
[2023-01-10] VITALS (10 sets, daily range): BP systolic 115; BP diastolic 79; PULSE 60–70; RESP 11–25; TEMP 36.6; O2SAT 96–100
--- NOTE | ~2023-01-10 | CT_ITS ---
EXAMINATION: CT brain wo con INDICATION: Headache COMPARISON: None TECHNIQUE: Standard unenhanced head CT. The dose-length product (DLP) was 605.33 mGy-cm. The mA was a djusted according to patient size. Iterative reconstruction technique was employed. FINDINGS: There is no acute intraparenchymal hemorrhage. No evidence of mass lesion. No evidence of a cute infarction. There is mild periventricular and subcortical hypodensity probably related to small vessel ischemic disease. There is mild prominence of the sulci and ventricles related to cerebral atr ophy. Intracranial calcified cerebral atherosclerosis is noted. There are no extra-axial collections. There is no mass effect or midline shift. Changes in the globes are likely from ocular lens surgery. There is mild mucosal thickening of the paranasal sinuses. IMPRESSION: 1. No acute intracranial abnormality. 2. Age related findings. Reviewed, dictated and finalized at location F.
--- NOTE | ~2023-01-10 | CT_ITS ---
EXAMINATION: CT cervical spine wo con DATE: 01/10/2023 20:55 INDICATION: Neck pain TECHNIQUE: Computed tomography (CT) of the cervical spine was performed without intravenous contrast. The dose-length product (DLP) was 177.82 mGy-cm. Automated exposure control and iterative reconstruc tion technique were employed. COMPARISON: None FINDINGS: No fracture, dislocation, or subluxation. The vertebral body heights are normal. There is m ild loss of intervertebral disc space height at C3-4 and C4-5. There is moderate multilevel facet and uncovertebral joint osteoarthritis. The odontoid process is intact. IMPRESSION: 1. Mild cervical spondylosis without acute findings. Reviewed, dictated and finalized at location F.
--- NOTE | ~2023-01-10 | CT_ITS ---
EXAMINATION: CT chest abdomen pelvis w con DATE: 01/10/2023 21:08 INDICATION: Pain in rib fractures after fall TECHNIQUE: Transaxial computed tomographic images of the chest, abdomen, and pelvis were obtained aft er the administration of 100 cc of Omnipaque 350 intravenous contrast. The dose-length product (DLP) was 471.24 mGy-cm. Automated exposure control and iterative reconstruction technique were employed. COMPARISON: 05/19/2019 FINDINGS: CHEST CT: There are posterior fractures of the left 10th through 12th ribs with comminution of the 11th rib fra cture. There are anterolateral fractures of the left eighth through 10th ribs with mild displacement. There are airspace opacities of the lingula and left lower lobe adjacent to the rib fractures. No pl eural effusion or pneumothorax. Calcified right hilar and mediastinal lymph nodes are consistent with old granulomatous disease. No pathologically enlarged thoracic lymph nodes are identified. The heart size is normal. There is mild thoracic spondylosis. ABDOMEN/PELVIS CT: There is a 3.4 cm cyst of the left hepatic lobe. Punctate calcifications in an otherwise normal splee n likely represent healed granulomatous disease. The pancreas, gallbladder, and adrenal glands are no rmal. Cysts of the kidneys measure up to 2.7 cm on the right. No pathologically enlarged abdominal or pelvic lymph nodes are identified. No free intraperitoneal gas or evidence of bowel obstruction. The appendix is normal. There is a trace volume of pelvic ascites. There is severe lumbar spondylosis. IMPRESSION: 1. Acute left-sided rib fractures as described above. Adjacent airspace opacities of the lingula and left lower lobe could reflect atelectasis or possibly mild pulmonary contusion. 2. No acute findings of the abdomen or pelvis. Reviewed, dictated and finalized at location F. IMPRESSION: 1. Acute left-sided rib fractures as described above. Adjacent airspace opaciti es of the lingula and left lower lobe could reflect atelectasis or possibly mil d pulmonary contusion. 2. No acute findings of the abdomen or pelvis.
--- NOTE | ~2023-01-10 | XR_ITS ---
EXAMINATION: XR ribs LT 2V INDICATION: Left chest pain, initial encounter TECHNIQUE: Four views of the left ribs were obtained. COMPARISON: 01/28/2007 FINDINGS: There are acute, displaced fractures at the anterolateral aspects of the left eighth throug h 10th ribs. There is a nondisplaced fracture at the anterolateral aspect of the left seventh rib. Th e left lung is clear. No pleural effusion or pneumothorax. IMPRESSION: 1. Acute fractures of the left seventh through 10th ribs with displacement of the eighth through 10th rib fractures. Reviewed, dictated and finalized at location F. IMPRESSION: 1. Acute fractures of the left seventh through 10th ribs with displacement of t he eighth through 10th rib fractures.
--- NOTE | 2023-01-10 19:38 | ECG_ITS ---
Measurements Intervals [place] Rate: 60 P: 62 WY: 156 QRS: 6 QRSD: 101 T: 41 QT: 419 QTc: 419 Interpretive Statements SINUS RHYTHM BASELINE ARTIFACT NONSPECIFIC ST ABNORMALITY BORDERLINE ECG COMPARED TO ECG 08/12/2020 14:03:56 NO SIGNIFICANT CHANGES Electronically Signed On 01-11-2023 16:37:35 CDT by Tanmay Silva M.D.
[2023-01-10] MEDS: ONDANSETRON INJ 4 MG/2 ML VIAL IV PUSH (19:50)
[2023-01-10] MEDS: HYDROmorphone HCL INJ (*CRX) 1 MG/ML SYR IV PUSH ×2 (19:50→22:30)
[2023-01-10] MEDS: SODIUM CHLORIDE 0.9% IV 1,000 ML 999 ML IV CONT (19:51)
[2023-01-10 20:21] LABS: Basophils Percent Auto 0.3 % (0.2-1.2); Eosinophils Absolute Auto 0.1 K/mm3 (0-0.3); Eosinophils Percent Auto 1.1 % (0-4.4); Hematocrit 37.7 % (37.0-47.0); Hemoglobin 12.3 g/dL (12.0-15.0); Immature Granulocyte Absolute 0.02 K/mm3 (0.00-0.031); Immature Granulocyte Percent A 0.3 % (0-0.5); Lymphocytes Percent Auto 14.1 % (18.3-44.2); Mean Corpuscular HGB Conc 32.6 g/dl (32-36); Mean Corpuscular Hemoglobin 31.2 pg (26-34); Mean Corpuscular Volume 95.7 fl (80-100); Mean Platelet Volume 9.8 fl (7.4-10.4); Monocytes Absolute Auto 0.4 K/mm3 (0.1-0.6); Monocytes Percent Auto 6.7 % (2.6-8.5); Neutrophils Absolute Auto 4.9 K/mm3 (1.3-6.7); Neutrophils Percent Auto 77.5 % (45.5-73.1); Platelet Count Result 337 k/mm3 (150-375); Red Blood Count 3.94 M/mm3 (4.2-5.4); Red Cell Distribution Width 12.5 % (11.5-14.5); White Blood Count 6.4 K/mm3 (4.5-10.0)
[2023-01-10 20:32] LABS: Prothrombin Time 12.4 Seconds (11.1-14.7)
--- NOTE | 2023-01-10 20:32 | ED.GENADULT ---
HPI - General Adult General Chief complaint: Fall Stated complaint: fall, rib injury Time Seen by Provider: 01/10/23 19:14 History of Present Illness HPI narrative: Patient 72-year-old female presents emergency department with chief complaint of left-sided chest pain. Patient states that she was at a local circus and was walking positive bleachers tripped over a bleacher fell and landed on a step of the bleacher with the left side of her chest. Patient states as she struck the bleachers she heard a crunch in the side of her chest and reports that it is exquisitely painful whenever she tries to take a deep breath or move. Patient denies loss of consciousness reports that she is not on any blood thinners reports she does not take a daily aspirin. Related Data Allergies Allergy/AdvReac Type Severity Reaction Status Date / Time grass pollen Allergy Unknown Itching Verified 12/19/22 11:57 poison fabrizio extract Allergy Unknown rash Verified 12/19/22 11:57 [place] Allergy Unknown Other Uncoded 12/19/22 11:57 Review of Systems Review of Systems: A 10 system review of systems was completed on the patient and is negative except for what is stated in the HPI. Nursing and ancillary documentation was reviewed. [facility] Past Medical History Medical History Adult BMI 25.0-25.9 kg/sq m Anemia Anxiety Andrade esophagus BMI 26.0-26.9,adult Breast cancer screening Cervical cancer Chronic kidney disease (CKD) stage G3b/A1, moderately decreased glomerular filtration rate (GFR) between 30-44 mL/min/1.73 square meter and albuminuria creatinine ratio less than 30 mg/g Chronic kidney disease, stage 3 unspecified COVID-19 08/16/22 Depression with anxiety Fatigue Fracture of radius, distal, with ulna, right, closed History of cervical cancer History of wrist fracture Hyperlipidemia Hypertension Left knee pain Major depression Major depressive disorder, single episode, mild Osteopenia Osteoporosis Post-nasal drip Right knee pain Rotator cuff tear, right Seasonal allergies Serum potassium elevated Supraspinatus tendon tear Urinary urgency Vitamin D deficiency Surgical History Surgical History H/O: hysterectomy History of surgery on left wrist (~2007) Social History Social History Smoking packs per day: 0.5 Smoking cigarettes per day: 10.0 Years smoked: 20 Smoking pack-years: 10.00 Smoking status: Former smoker Tobacco type: cigarettes Second hand tobacco smoke exposure: No Smoking end date: 09/30/88 Alcohol intake: current Alcohol use details: occasional glass of wine Substance use: never Substance use type: does not use Lack of Transportation: No Lack of Food: Never True Current Housing: I Have Housing Concerned About Future Housing: No Difficulty Paying Gas/Electric Bills: No Difficulty Paying for Meds: No Currently Unemployed: No Education: Don't Know Difficulty w/ Childcare or Family Care: No Living arrangements: alone Gender identity (if verbalized by the patient): Female Spiritual care concerns: No Exam Narrative: GENERAL: Well-appearing, well-nourished, and in no acute distress. HEAD: Normocephalic, atraumatic. EYES: PERRLA and EOMI. ENT: Nares clear, no rhinorrhea or epistaxis. Mucous membranes moist. NECK: Supple. CHEST: Clear to auscultation. No respiratory distress. Chest wall is tender to palpation on the left side there is no crepitance there is no subcu edema there is no bruising present. There is no paradoxical movement of the chest wall. HEART: Regular rate and rhythm. No murmur heard. Normal peripheral pulses. ABDOMEN: Soft, nontender, nondistended, normal active bowel sounds. EXTREMITIES: Normal range of motion. No edema. SKIN: Warm, dry, no rash. NEURO: No focal deficits. A
[2023-01-10 20:33] LABS: Partial Thromboplastin Time 32.8 SECONDS (22.3-36.8)
[2023-01-10 20:35] LABS: Alanine Aminotransferase 22 U/L (6-35); Albumin Level 4.3 g/dL (3.5-5.1); Alkaline Phosphatase 136 U/L (38-126); Anion Gap 6 mmol/L (8-16); Aspartate Amino Transferase 26 U/L (14-36); Bilirubin,Total 0.5 mg/dL (0.2-1.3); Blood Urea Nitrogen 25 mg/dL (7-17); Calcium 9.1 mg/dL (8.4-10.2); Carbon Dioxide 31 mmol/L (22-30); Chloride 101 mmol/L (98-107); Estimated CRCL calculation 30 ml/min; Estimated Glomerular Filt Rate 44; Glucose 109 mg/dL (65-110); Potassium 3.4 mmol/L (3.4-5.0); Sodium 138 mmol/L (137-145)
[2023-01-10 20:47] LABS: Troponin I < 0.012 ng/mL (0.000-0.034)
--- NOTE | 2023-01-10 22:55 | PC.NURSE ---
report called to amanda GRANDE to [facility] MITCHELL.
== END 2023-01-10 23:51 | disposition short-term general hospital (02) ==
PROVIDERS: Emergency Provider Emergency Medicine; PCP Nurse Practitioner Family
DX: S27.321A Contusion of lung, unilateral, initial encounter (principal); S22.42XA Multiple fractures of ribs, left side, initial encounter for closed fracture; I12.9 Hypertensive chronic kidney disease with stage 1 through stage 4 chronic kidney disease, or unspecified chronic kidney disease; N18.30 Chronic kidney disease, stage 3 unspecified; E55.9 Vitamin D deficiency, unspecified; E78.5 Hyperlipidemia, unspecified; K22.70 Barrett's esophagus without dysplasia; M85.80 Other specified disorders of bone density and structure, unspecified site; M81.0 Age-related osteoporosis without current pathological fracture; Z86.16 Personal history of COVID-19; Z85.41 Personal history of malignant neoplasm of cervix uteri; Z86.2 Personal history of diseases of the blood and blood-forming organs and certain disorders involving the immune mechanism; R94.31 Abnormal electrocardiogram [ECG] [EKG]; M47.812 Spondylosis without myelopathy or radiculopathy, cervical region; W18.09XA Striking against other object with subsequent fall, initial encounter
CPT/HCPCS: 36415; 70450; 71100; 71260; 72125; 74177; 80053; 84484; 85025; 85610; 85730; 93005; 96361; 96374; 96375; 96376; 99285; J1170; J2405; J7030; Q9967

== ENCOUNTER → 2023-01-31 13:48 | Outpatient (CLI) | payer MEDICARE, SELFPAY ==
--- NOTE | ~2023-01-31 | XR_ITS ---
EXAMINATION: XR lumbar spine 2-3V DATE: 01/31/2023 14:41 INDICATION: Low back pain, unspecified. TECHNIQUE: 3 views of lumbar spine were obtained. COMPARISON: CT abdomen and pelvis 01/10/2023 FINDINGS: There is 28 degrees dextroscoliosis of thoracolumbar spine. There is 3 mm anterolisthesis o f L3 on L4. Vertebral body heights are normal. There is mildly decreased disc height at L1-L2, severe ly decreased disc height at L2-L3, moderately decreased disc height at L3-L4, and severely decreased disc height at L4-L5 with endplate remodeling. There is multilevel severe facet joint osteoarthritis. IMPRESSION: 1. Severe lumbar spondylosis. 2. Thoracolumbar dextroscoliosis. Reviewed, dictated and finalized at location A.
--- NOTE | ~2023-01-31 | XR_ITS ---
EXAMINATION: XR cervical spine 4-5V DATE: 01/31/2023 14:41 INDICATION: Neck pain. TECHNIQUE: 5 views of cervical spine standing were obtained. COMPARISON: Cervical spine CT 01/10/2023 FINDINGS: There is 5 degrees dextrocurvature of cervicothoracic spine. Vertebral body heights are nor mal. There is mildly decreased disc height at C3-C4, C4-C5, and C5-C6. There is multilevel facet join t osteoarthritis, severe on the left at C5-C6 and C7-T1. There is multilevel uncovertebral joint oste oarthritis, severe bilaterally at C3-C4 and C4-C5 and on the right at C5-C6. There is multilevel mild neural foraminal stenosis bilaterally. There is mild central canal stenosis at C4-C5. No prevertebra l soft tissue swelling. IMPRESSION: 1. Mild cervical spondylosis. Reviewed, dictated and finalized at location A.
--- NOTE | ~2023-01-31 | XR_ITS ---
EXAMINATION: XR shoulder LT min 2V, XR shoulder RT min 2V DATE: 01/31/2023 14:40 INDICATION: Bilateral shoulder pain TECHNIQUE: 1. AP internally and externally rotated, AP oblique externally rotated and transscapular Y views of t he left shoulder were obtained. 2. AP internally and externally rotated, AP oblique externally rotated and transscapular Y views of t he right shoulder were obtained. COMPARISON: None FINDINGS: Normal alignment at both shoulders. No fracture.Relatively symmetric moderate osteoarthritis at the bilateral acromioclavicular joints. Bilateral glenohumeral joint spaces are relatively preserved. Irr egular cortical contour along the right greater tuberosity likely related to chronic rotator cuff dis ease with suture anchor along the superior facet consistent with prior rotator cuff repair. S-shaped thoracic scoliosis. Visualized portions of the lungs are clear. Calcified mediastinal and bilateral h ilar lymph nodes consistent with old granulomatous disease. Soft tissues are unremarkable. IMPRESSION: Moderate bilateral acromioclavicular osteoarthritis. Reviewed, dictated and finalized at location L. IMPRESSION: Moderate bilateral acromioclavicular osteoarthritis.
== END ==
PROVIDERS: PCP Family Medicine; Visit Provider Nurse Practitioner Family
DX: M47.812 Spondylosis without myelopathy or radiculopathy, cervical region (principal); M47.816 Spondylosis without myelopathy or radiculopathy, lumbar region; M41.9 Scoliosis, unspecified; M19.012 Primary osteoarthritis, left shoulder; M19.011 Primary osteoarthritis, right shoulder
CPT/HCPCS: 72050; 72100; 73030

== ENCOUNTER 2023-03-25 12:11 | Emergency (ER) | payer MEDICARE, SELFPAY ==
--- NOTE | 2023-03-25 12:29 | ED.FEMALEGU ---
HPI - Female Genitourinary General Chief complaint: Urogenital-Female Stated complaint: uti symptoms Time Seen by Provider: 03/25/23 13:27 Source: patient Mode of arrival: ambulatory Limitations: no limitations History of Present Illness HPI Narrative: Patient is a 72-year-old female that presents with urinary urgency, frequency, burning with urination, pelvic pressure and urinating small amounts since Saturday. Patient denies any blood in urine, low back pain or fever. MD elicited complaint: dysuria Related Data Home Medications Medication Instructions Recorded Confirmed duloxetine 30 mg capsule,delayed 60 mg PO .COMPLEX 03/22/23 03/25/23 release Allergies Allergy/AdvReac Type Severity Reaction Status Date / Time grass pollen Allergy Unknown Itching Verified 03/25/23 13:12 poison fabrizio extract Allergy Unknown rash Verified 03/25/23 13:12 Maple Tree Allergy Unknown Other Uncoded 03/25/23 13:12 Review of Systems Review of Systems: All systems reviewed & are unremarkable except as noted in HPI and below Constitutional: Constitutional: Denies chills, Denies fever(s), Denies headache(s), Denies malaise and Denies weakness Eyes: Eyes: Denies change in vision, Denies eye discharge and Denies irritation ENT: Denies otalgia, Denies headache(s), Denies nasal congestion, Denies nasal discharge, Denies sinus pain and Denies sore throat Cardiovascular: Cardiovascular: Denies chest pain, Denies edema, Denies palpitations and Denies dyspnea Respiratory: Respiratory: Denies cough and Denies dyspnea Gastrointestinal: Gastrointestinal: Denies abdominal pain, Denies diarrhea, Denies nausea and Denies vomiting Genitourinary: Genitourinary: Denies hematuria, Reports nocturia, Reports dysuria, Reports pelvic pain, Denies flank pain and Reports urinary urgency Musculoskeletal: Musculoskeletal: Denies back pain and Denies numbness Integumentary/Breasts: Skin/Breast: Denies pruritus and Denies rash Neurologic: Denies headache(s), Denies numbness and Denies weakness Psychiatric: Psychiatric: Reports no additional psychiatric complaints Endocrine: Endocrine: Denies palpitations PMFSH Past Medical History Medical History Adult BMI 25.0-25.9 kg/sq m Anemia Anxiety Arthralgia of multiple joints Andrade esophagus BMI 26.0-26.9,adult Breast cancer screening Cervical cancer Cervical radiculitis Cervicalgia Chronic kidney disease (CKD) stage G3b/A1, moderately decreased glomerular filtration rate (GFR) between 30-44 mL/min/1.73 square meter and albuminuria creatinine ratio less than 30 mg/g Chronic kidney disease, stage 3 unspecified COVID-19 08/16/22 Depression with anxiety Fatigue Fracture of radius, distal, with ulna, right, closed History of cervical cancer History of wrist fracture Hyperlipidemia Hypertension Left knee pain Left shoulder pain Low back pain radiating to both legs Major depression Major depressive disorder, single episode, mild Osteopenia Osteoporosis Post-nasal drip Right knee pain Right shoulder pain Rotator cuff tear, right Seasonal allergies Serum potassium elevated Supraspinatus tendon tear Urinary urgency Vitamin D deficiency Surgical History Surgical History H/O: hysterectomy History of surgery on left wrist (~2007) Social History Social History Smoking packs per day: 0.5 Smoking cigarettes per day: 10.0 Years smoked: 20 Smoking pack-years: 10.00 Smoking status: Former smoker Tobacco type: cigarettes Second hand tobacco smoke exposure: No Smoking end date: 09/30/88 Alcohol intake: current Alcohol use details: occasional glass of wine Substance use: never Substance use type: does not use Lack of Transportation: No Lack of Food: Never True Current Housing: I Have Housing Concerned About Futur
[2023-03-25 13:05] VITALS: BP 122/59; PULSE 54; RESP 16; TEMP 36.3; O2SAT 90
== END 2023-03-25 14:01 | disposition home or self-care (01) ==
PROVIDERS: Emergency Provider Nurse Practitioner Family; PCP Family Medicine
DX: N39.0 Urinary tract infection, site not specified (principal); Z87.891 Personal history of nicotine dependence; K22.70 Barrett's esophagus without dysplasia; I12.9 Hypertensive chronic kidney disease with stage 1 through stage 4 chronic kidney disease, or unspecified chronic kidney disease; N18.32 Chronic kidney disease, stage 3b; E78.5 Hyperlipidemia, unspecified; M81.0 Age-related osteoporosis without current pathological fracture; M85.80 Other specified disorders of bone density and structure, unspecified site; F41.9 Anxiety disorder, unspecified; F32.0 Major depressive disorder, single episode, mild
CPT/HCPCS: 81003; 87077; 87086; 87186; 99213; G0463

== ENCOUNTER 2023-04-04 13:12 | Emergency (ER) | payer MEDICARE, SELFPAY ==
--- NOTE | 2023-04-04 13:16 | ED.FEMALEGU ---
HPI - Female Genitourinary General Chief complaint: Urogenital-Female Stated complaint: uti symptoms Time Seen by Provider: 04/04/23 13:14 Source: patient Mode of arrival: ambulatory Limitations: no limitations History of Present Illness HPI Narrative: Angela is a 72-year-old female patient presenting to the clinic today with complaints of possible urinary tract infection. She reports she was seen over a week ago for a urinary tract infection and had finished her antibiotics. She said yesterday she started developing urinary hesitancy and burning with urination again. She is concerned that the UTI came back or possibly to was not gone. She denies any fever, chills, back pain, or lower abdominal pain. Related Data Home Medications Medication Instructions Recorded Confirmed duloxetine 30 mg capsule,delayed 60 mg PO .COMPLEX 03/22/23 04/04/23 release Allergies Allergy/AdvReac Type Severity Reaction Status Date / Time grass pollen Allergy Unknown Itching Verified 04/04/23 13:31 poison fabrizio extract Allergy Unknown rash Verified 04/04/23 13:31 Maple [place] Allergy Unknown Other Uncoded 04/04/23 13:32 Review of Systems Review of Systems: Pertinent positives per HPI. Patient denies any fever, chills, rash, headache, visual changes, dizziness, cough, runny nose, sore throat, shortness of breath, chest pain, palpitations, nausea, vomiting, diarrhea, constipation, abdominal pain. [facility] Past Medical History Medical History Adult BMI 25.0-25.9 kg/sq m Anemia Anxiety Arthralgia of multiple joints Andrade esophagus BMI 26.0-26.9,adult Breast cancer screening Cervical cancer Cervical radiculitis Cervicalgia Chronic kidney disease (CKD) stage G3b/A1, moderately decreased glomerular filtration rate (GFR) between 30-44 mL/min/1.73 square meter and albuminuria creatinine ratio less than 30 mg/g Chronic kidney disease, stage 3 unspecified COVID-19 08/16/22 Depression with anxiety Fatigue Fracture of radius, distal, with ulna, right, closed History of cervical cancer History of wrist fracture Hyperlipidemia Hypertension Left knee pain Left shoulder pain Low back pain radiating to both legs Major depression Major depressive disorder, single episode, mild Osteopenia Osteoporosis Post-nasal drip Right knee pain Right shoulder pain Rotator cuff tear, right Seasonal allergies Serum potassium elevated Supraspinatus tendon tear Urinary urgency Vitamin D deficiency Surgical History Surgical History H/O: hysterectomy History of surgery on left wrist (~2007) Social History Social History Smoking packs per day: 0.5 Smoking cigarettes per day: 10.0 Years smoked: 20 Smoking pack-years: 10.00 Smoking status: Former smoker Tobacco type: cigarettes Second hand tobacco smoke exposure: No Smoking end date: 09/30/88 Alcohol intake: current Alcohol use details: occasional glass of wine Substance use: never Substance use type: does not use Lack of Transportation: No Lack of Food: Never True Current Housing: I Have Housing Concerned About Future Housing: No Difficulty Paying Gas/Electric Bills: No Difficulty Paying for Meds: No Currently Unemployed: No Education: Don't Know Difficulty w/ Childcare or Family Care: No Living arrangements: alone Gender identity (if verbalized by the patient): Female Spiritual care concerns: No Comments At the time of my signature, I reviewed and agree with the nursing past medical, surgical, social, and family history. There is no relevant family history pertinent to the patient complaint. Exam Narrative: General: Well-developed, well nourished, in no apparent distress. Head: Normocephalic, atraumatic. Cardio: Regular rate and rhythm, s1 and s2 normal, no murmur
[2023-04-04 13:22] VITALS: BP 135/59; PULSE 71; RESP 18; TEMP 36.7; O2SAT 99
== END 2023-04-04 13:35 | disposition home or self-care (01) ==
PROVIDERS: Emergency Provider Nurse Practitioner Family; PCP Family Medicine
DX: N30.01 Acute cystitis with hematuria (principal); Z87.891 Personal history of nicotine dependence; K22.70 Barrett's esophagus without dysplasia; E78.5 Hyperlipidemia, unspecified; M85.80 Other specified disorders of bone density and structure, unspecified site; M81.0 Age-related osteoporosis without current pathological fracture; I12.9 Hypertensive chronic kidney disease with stage 1 through stage 4 chronic kidney disease, or unspecified chronic kidney disease; N18.32 Chronic kidney disease, stage 3b; F41.8 Other specified anxiety disorders; Z86.16 Personal history of COVID-19; Z85.41 Personal history of malignant neoplasm of cervix uteri
CPT/HCPCS: 81003; 87077; 87086; 87186; 99213; G0463

== ENCOUNTER 2023-05-10 12:45 | Outpatient (CLI) | payer MEDICARE, SELFPAY ==
--- NOTE | ~2023-05-10 | MR_ITS ---
MRI of the cervical spine Clinical History: Pain Technique: Axial T2-weighted and gradient images, and sagittal T1-weighted, T2-weighted, and STIR dahiana ges were acquired. Findings: There is no fracture or subluxation of the cervical spine. Vertebral bodies maintain normal height and alignment. At C2-C3, there is no significant disc bulge or herniation. There is minimal facet arthropathy. No sp inal canal stenosis, cord compression, or neural foraminal narrowing. At C3-C4, there is disc osteophyte complex, without no canal stenosis or definite cord compression . There is no definite neural foraminal narrowing. At C4-C5, there is no disc bulge or herniation. There is mild facet arthropathy. No spinal canal sten osis or cord compression. Probable minimal left neural foraminal narrowing. Right neural foramen pres erved. At C5-C6, there is no disc bulge or herniation. There is no spinal canal stenosis, cord compression, or neural foraminal narrowing. At C6-C7, there is small central disc protrusion. No spinal canal stenosis, cord compression, or neur al foraminal narrowing. No abnormal signal seen in the spinal cord. Paravertebral soft tissues are unremarkable. Impression: Mild degenerative spondylosis, as above. Reviewed, dictated and finalized at location . Impression: Mild degenerative spondylosis, as above.
--- NOTE | ~2023-05-10 | MR_ITS ---
MRI of the lumbar spine Clinical History: Back pain Technique: Axial T2-weighted images, and sagittal T1-weighted, T2-weighted, and T2 fat-sat images wer e acquired. Findings: 25 degree levoscoliosis of the lower lumbar spine. No acute fracture identified. There are reactive marrow signal changes due to underlying degenerative disc disease. At L1-L2, there is left-sided disc bulge with mild facet arthropathy. No central canal stenosis. Ther e is moderate bilateral neural foraminal narrowing. At L2-L3, there is severe degenerative disc narrowing. There is mild disc bulge and severe facet arth ropathy. No central canal stenosis. There is severe left neural foraminal narrowing. Right neural for amen preserved. At L3-L4, there is diffuse disc bulge with severe facet arthropathy, resulting in severe spinal canal stenosis/thecal sac compression. There is severe right neural foraminal narrowing, and mild to moder ate left neural foraminal narrowing. At L4-L5, there is severe degenerative disc narrowing. There is mild disc bulge and severe facet arth ropathy. No no central canal stenosis. There is severe right neural foraminal narrowing. Left neur al foramen preserved. At L5-S1, there is diffuse disc bulge with mild facet arthropathy. No central canal stenosis. There i s moderate right neural foraminal narrowing. Left neural foramen are preserved. Paravertebral soft tissues are unremarkable. Impression: Advanced degenerative spondylosis, as detailed above, with associated levoscoliosis of the lower lumb ar spine. Reviewed, dictated and finalized at [facility]. Impression: Advanced degenerative spondylosis, as detailed above, with associated levoscoli osis of the lower lumbar spine.
== END 2023-05-10 12:46 | disposition home or self-care (01) ==
PROVIDERS: PCP Family Medicine; Visit Provider Nurse Practitioner Family
DX: M54.50 Low back pain, unspecified (principal); M47.892 Other spondylosis, cervical region
CPT/HCPCS: 72141; 72148

== ENCOUNTER 2023-06-25 10:49 | Outpatient (CLI) | payer MEDICARE, SELFPAY ==
--- NOTE | ~2023-06-25 | MMUS_ITS ---
EXAMINATION: MM diagnostic alberto RT w latoya, US breast RT limited HISTORY: Outside 04/23/2023 screening mammogram report of density in right upper outer quadrant midd le third TECHNIQUE: Additional 3-D tomosynthesis images of the right breast were performed and synthetic 2-D i mages were generated. CAD analysis was submitted and interpreted. High resolution upper outer and low er-outer quadrant right breast ultrasound was performed. COMPARISON: 04/23/2023, 10/26/2021 [facility] bilateral screening mammogram BREAST PARENCHYMAL COMPOSITION: There are scattered areas of fibroglandular density. FINDINGS: MAMMOGRAPHIC FINDINGS: Scattered benign calcifications are noted. No suspicious mass or architectural distortion, malignant calcification, skin thickening or retraction or significant new or developing density is detected. ULTRASOUND: No suspicious mass or shadowing, cyst or other significant sonographic abnormality is detected in the upper outer or lower outer quadrants of the right breast. IMPRESSION: 1. Benign findings; no mammographic or sonographic evidence of malignancy 2. Routine annual mammographic screening is recommended BI-RADS Category 2: Benign finding(s). Reviewed, dictated and finalized at location A. IMPRESSION: 1. Benign findings; no mammographic or sonographic evidence of malignancy 2. Routine annual mammographic screening is recommended BI-RADS Category 2: Benign finding(s).
== END 2023-06-25 10:50 | disposition home or self-care (01) ==
PROVIDERS: PCP Family Medicine; Visit Provider Family Medicine
DX: Z12.31 Encounter for screening mammogram for malignant neoplasm of breast (principal); R92.8 Other abnormal and inconclusive findings on diagnostic imaging of breast
CPT/HCPCS: 76642; 77061; 77065; G0279

== ENCOUNTER 2023-11-14 14:39 | Outpatient (CLI) | payer MEDICARE, SELFPAY ==
--- NOTE | ~2023-11-14 | US_ITS ---
EXAMINATION: US thyroid DATE: 11/14/2023 15:04 INDICATION: Goiter. Abnormal labs. TECHNIQUE: Multiple ultrasound images of the thyroid were obtained. COMPARISON: None. FINDINGS: The right thyroid lobe measures 4.7 x 1.6 x 1.5 cm. The left thyroid lobe measures 4.6 x 1.5 x 1.0 c m. Thyroid isthmus measures 3 mm thickness. No discrete nodules identified. There is normal echotextu re and echogenicity throughout the thyroid gland. There is increased vascular flow throughout both th yroid lobes which can be seen with thyroiditis. IMPRESSION: 1. Increased vascular flow throughout the normal-appearing thyroid which could be seen with thyroidit is. No thyroid nodules. Reviewed, dictated and finalized at location A. AVER IMPRESSION: 1. Increased vascular flow throughout the normal-appearing thyroid which could be seen with thyroiditis. No thyroid nodules.
== END 2023-11-14 14:40 | disposition home or self-care (01) ==
LOC: ANHIMG 14:41
PROVIDERS: PCP Family Medicine; Visit Provider Internal Medicine
DX: R79.89 Other specified abnormal findings of blood chemistry (principal)
CPT/HCPCS: 76536

== ENCOUNTER 2024-07-13 13:40 | Outpatient (CLI) | payer MEDICARE, SELFPAY ==
--- NOTE | ~2024-07-13 | MM_ITS ---
EXAMINATION: MM screening alberto BI w latoya HISTORY: Screening TECHNIQUE: Craniocaudal and mediolateral oblique 3-D tomosynthesis images were obtained and synthetic 2-D images were generated. CAD analysis was submitted and interpreted. COMPARISON: Comparison to multiple prior studies sequentially, with oldest reviewed study dated 10/26. BREAST PARENCHYMAL COMPOSITION: Not dense: There are scattered areas of fibroglandular density. FINDINGS: There is stable distortion in the left breast from previous benign biopsy. There is no evid ence of suspicious mass, calcification, or architectural distortion to suggest malignancy in either b reast. There has been no suspicious interval change. IMPRESSION: 1. No mammographic evidence of malignancy. 2. Recommend routine screening mammography in one year. BI-RADS CATEGORY 1 - NEGATIVE Reviewed, dictated and finalized at location B.
== END 2024-07-13 13:41 | disposition home or self-care (01) ==
LOC: ANHIMG 13:45
PROVIDERS: PCP Family Medicine; Visit Provider Family Medicine
DX: Z12.31 Encounter for screening mammogram for malignant neoplasm of breast (principal)
CPT/HCPCS: 77063; 77067

== ENCOUNTER 2024-10-14 11:40 | Emergency (ER) | payer MEDICARE, SELFPAY ==
[2024-10-14 11:51] VITALS: BP 157/85; PULSE 69; RESP 16; TEMP 36.6; O2SAT 99
--- NOTE | 2024-10-14 11:59 | ED_ITS ---
HPI - Female Genitourinary General Chief complaint: Urogenital-Female Stated complaint: UTI SYMPTOMS Source: patient and RN notes reviewed Mode of arrival: ambulatory Limitations: no limitations History of Present Illness HPI Narrative: 74 y/o female presented with c/o burning with urination, frequency and hesitancy. Onset 2 days. Denies hematuria, nausea, vomiting, abdominal pain, flank pain, constipation, diarrhea, fevers or chills. Related Data Home Medications ?Medication ?Instructions ?Recorded ?Confirmed ?Last Taken ?Type ferrous sulfate 325 mg (65 mg 325 mg PO BID 10/30/23 Unknown History iron) tablet,delayed release duloxetine 60 mg capsule,delayed mg PO 10/14/24 Unknown History release furosemide 20 mg tablet mg 10/14/24 Unknown History trazodone 50 mg tablet mg 10/14/24 Unknown History Allergies Allergy/AdvReac Type Severity Reaction Status Date / Time grass pollen Allergy Unknown Itching Verified 10/14/24 11:47 poison fabrizio extract Allergy Unknown rash Verified 10/14/24 11:47 Maple [place] Allergy Unknown Other Uncoded 01/30/24 10:41 Review of Systems Review of Systems: CONSTITUTIONAL: Denies body aches, fever, chills, or sweats. CARDIOVASCULAR: Denies chest pain, palpitations, or edema. RESPIRATORY: Denies cough or dyspnea. GASTROINTESTINAL: Denies abdominal pain, nausea, vomiting, or diarrhea. GENITOURINARY: Reports dysuria, frequency, urgency, denies hematuria, flank pain SKIN: Denies rash, itching, or wounds. MUSCULOSKELETAL: Denies back pain or myalgia. [facility] Past Medical History Medical History Arthralgia of multiple joints Right shoulder pain Left shoulder pain Low back pain radiating to both legs Cervical radiculitis Cervicalgia COVID-19 08/16/22 Major depressive disorder, single episode, mild Chronic kidney disease (CKD) stage G3b/A1, moderately decreased glomerular filtration rate (GFR) between 30-44 mL/min/1.73 square meter and albuminuria creatinine ratio less than 30 mg/g Major depression Left knee pain Right knee pain Urinary urgency BMI 26.0-26.9,adult Post-nasal drip Chronic kidney disease, stage 3 unspecified Serum potassium elevated Adult BMI 25.0-25.9 kg/sq m Breast cancer screening Osteopenia Seasonal allergies Depression with anxiety Vitamin D deficiency Anemia History of cervical cancer Fatigue Anxiety Andrade esophagus Hyperlipidemia Rotator cuff tear, right Fracture of radius, distal, with ulna, right, closed Cervical cancer History of wrist fracture Osteoporosis Hypertension Supraspinatus tendon tear Surgical History Surgical History History of surgery on left wrist (~2007) H/O: hysterectomy Social History Social History Smoking packs per day: 0.5 Smoking cigarettes per day: 10.0 Years smoked: 20 Smoking pack-years: 10.00 Smoking status: Former smoker Tobacco type: cigarettes Second hand tobacco smoke exposure: No Smoking end date: 09/30/88 Alcohol intake: current Alcohol use details: occasional glass of wine Substance use: never Substance use type: does not use Do You Feel Safe in your Home?: Yes Lack of Transportation: No Lack of Food: Never True Current Housing: I Have Housing Concerned About Future Housing: No Difficulty Paying Gas/Electric Bills: No Difficulty Paying for Meds: No Currently Unemployed: No Education: Trade/Vocational Certificate Difficulty w/ Childcare or Family Care: No Living arrangements: alone Gender identity (if verbalized by the patient): Female Spiritual care concerns: No Comments At time of signature, I have reviewed and agree with nursing past medical, surgical, social and family history unless otherwise noted. Please see nursing chart for further information. There is no relevant family history pertinent to the presenting complaint Exam Narrative: GENERAL: Well-appearing ENT: Mucous membranes pink and moist. NECK: Normal AROM. CHEST: No respiratory distress. Clear to auscultation. HEART: Regular rate and rhythm. ABDOMEN: Soft, nontender, nondistended, normal active bowel sounds. No CVA tenderness SKIN: Warm, dry, no rash. NEURO: No focal deficits. Alert and oriented x3. Gait steady. PSYCH: Normal affect. Course Course Emergency Course: Patient is aware of diagnosis, understands and agrees to treatment plan. Anticipatory guidance given. Patient agrees to follow-up as directed and is aware of reasons to seek care at the emergency department. Portions of this record may have been created with voice recognition software Level of Care: Express Care Visit Vital Signs Vital signs: Vital Signs Temperature 97.9 F 10/14/24 11:51 Pulse Rate 69 10/14/24 11:51 Respiratory Rate 16 10/14/24 11:51 Blood Pressure 157/85 H 10/14/24 11:51 Pulse Oximetry 99 10/14/24 11:51 Temperature 97.9 F 10/14/24 11:51 Pulse Rate 69 10/14/24 11:51 Respiratory Rate 16 10/14/24 11:51 Blood Pressure 157/85 H 10/14/24 11:51 Pulse Oximetry 99 10/14/24 11:51 Reviewed MDM - Female Genitourinary MDM Narrative Medical decision making narrative: Discussed physical exam findings and urine dip. Rx Augmentin, history of CKD. Advised supportive measures and signs/symptoms to go to the ER. Pt is appropriate for outpt treatment and f/u. Differential Diagnosis Differential diagnosis: Likely urinary tract infection and cystitis Discharge Plan Discharge Clinical Impression: Urinary tract infection Qualifiers: Urinary tract infection type: site unspecified Hematuria presence: with hematuria Qualified Code(s): N39.0 - Urinary tract infection, site not specified ; R31.9 - Hematuria, unspecified Patient Disposition: Home, Self-Care Condition: Stable Instructions: Antibiotic Form, Urinary Tract Infection in Women (ED) Additional Instructions: Take the antibiotic as prescribed The urine will be sent of for a culture to identify what type of bacteria is causing your infection. If the culture shows that the antibiotic will not get rid of your infection, you will be notified and a new antibiotic will be called in for you. Increase water intake you will need to follow up with your PCP, call to schedule an appointment. Go to the ER for any worsening symptoms or concerns Patient Language: Cameroonian Prescriptions: New amoxicillin-pot clavulanate [Augmentin] 500-125 mg tablet 1 tablet PO Q12H 5 Days Qty: 10 0RF No Action trazodone 50 mg tablet furosemide 20 mg tablet duloxetine 60 mg capsule,delayed release(DR/EC) PO ferrous sulfate 325 mg (65 mg iron) tablet,delayed release (DR/EC) 325 mg PO BID lisinopril 20 mg tablet 20 mg PO DAILY 90 Days Qty: 90 3RF pantoprazole 40 mg tablet,delayed release (DR/EC) 40 mg PO QAM Qty: 90 3RF atorvastatin 10 mg tablet 10 mg PO DAILY Qty: 90 3RF Follow-up/Referrals: Ramses,MD Charles [Primary Care Provider] -
[2024-10-14 12:19] LABS: EDUAAPPEAR Cloudy; EDUABILI Negative (Negative); EDUABLOOD 3+ (Negative); EDUACOLOR1 Dark; EDUAGLUCOSE Negative (Negative); EDUAKETONE Negative (Negative); EDUALEUKO 1+ (Negative); EDUANITRATE Positive (Negative); EDUAPROTEIN 2+ (Negative); EDUASPGRAVITY 1.025; EDUAUROBILI 0.2
== END 2024-10-14 12:16 | disposition home or self-care (01) ==
PROVIDERS: Emergency Provider Nurse Practitioner Family; PCP Family Medicine
DX: N39.0 Urinary tract infection, site not specified (principal); R31.9 Hematuria, unspecified; Z87.891 Personal history of nicotine dependence; I12.9 Hypertensive chronic kidney disease with stage 1 through stage 4 chronic kidney disease, or unspecified chronic kidney disease; N18.32 Chronic kidney disease, stage 3b; K22.70 Barrett's esophagus without dysplasia; E78.5 Hyperlipidemia, unspecified; M81.0 Age-related osteoporosis without current pathological fracture; Z85.41 Personal history of malignant neoplasm of cervix uteri; Z86.16 Personal history of COVID-19
CPT/HCPCS: 81003; 87077; 87086; 87186; 99213; G0463

== ENCOUNTER 2024-11-06 19:01 | Emergency (ER) | payer MEDICARE, SELFPAY ==
--- NOTE | 2024-11-06 19:03 | ED.URI ---
HPI - URI/Sore Throat General Chief Complaint: Upper Respiratory Infection Stated Complaint: cough Time Seen by Provider: 11/06/24 19:02 Source: patient Mode of arrival: ambulatory Limitations: no limitations History of Present Illness HPI Narrative: Patient is a 74-year-old female presents with 3 days of persistent cough with multiple coughing fits along with headache. Patient states she is unable to sleep due to coughing. Denies any fever, chills, nausea, vomiting, diarrhea. Patient has been taking DayQuil NyQuil. Related Data Home Medications ?Medication ?Instructions ?Recorded ?Confirmed ?Last Taken ?Type ferrous sulfate 325 mg (65 mg 325 mg PO BID 10/30/23 Unknown History iron) tablet,delayed release duloxetine 60 mg capsule,delayed mg PO 10/14/24 Unknown History release furosemide 20 mg tablet mg 10/14/24 Unknown History trazodone 50 mg tablet mg 10/14/24 Unknown History Allergies Allergy/AdvReac Type Severity Reaction Status Date / Time grass pollen Allergy Unknown Itching Verified 11/06/24 19:34 poison fabrizio extract Allergy Unknown rash Verified 11/06/24 19:34 Maple Tree Allergy Unknown Other Uncoded 11/06/24 19:34 Review of Systems Review of Systems: All systems reviewed & are unremarkable except as noted in HPI and below Constitutional: Constitutional: Denies chills, Denies fatigue, Denies fever(s), Reports headache(s), Denies malaise and Denies weakness Eyes: Eyes: Denies blurry vision, Denies itchy eyes and Denies loss of vision ENT: Denies otalgia, Reports headache(s), Denies nasal congestion, Denies sinus pain and Denies sore throat Cardiovascular: Cardiovascular: Denies chest pain, Denies irregular heart rhythm and Denies dyspnea Respiratory: Respiratory: Reports cough and Denies dyspnea Gastrointestinal: Gastrointestinal: Denies abdominal pain, Denies diarrhea, Denies nausea and Denies vomiting Musculoskeletal: Musculoskeletal: Denies back pain, Denies myalgias and Denies arthralgias Integumentary/Breasts: Skin/Breast: Denies pruritus and Denies rash Neurologic: Reports headache(s), Denies loss of vision and Denies weakness Psychiatric: Psychiatric: Reports no additional psychiatric complaints Endocrine: Endocrine: Denies fatigue Allergic/Immunologic: Allergic/Immunologic: Denies itchy eyes PMFSH Past Medical History Medical History Arthralgia of multiple joints Right shoulder pain Left shoulder pain Low back pain radiating to both legs Cervical radiculitis Cervicalgia COVID-19 08/16/22 Major depressive disorder, single episode, mild Chronic kidney disease (CKD) stage G3b/A1, moderately decreased glomerular filtration rate (GFR) between 30-44 mL/min/1.73 square meter and albuminuria creatinine ratio less than 30 mg/g Major depression Left knee pain Right knee pain Urinary urgency BMI 26.0-26.9,adult Post-nasal drip Chronic kidney disease, stage 3 unspecified Serum potassium elevated Adult BMI 25.0-25.9 kg/sq m Breast cancer screening Osteopenia Seasonal allergies Depression with anxiety Vitamin D deficiency Anemia History of cervical cancer Fatigue Anxiety Andrade esophagus Hyperlipidemia Rotator cuff tear, right Fracture of radius, distal, with ulna, right, closed Cervical cancer History of wrist fracture Osteoporosis Hypertension Supraspinatus tendon tear Surgical History Surgical History History of surgery on left wrist (~2007) H/O: hysterectomy Social History Social History Smoking packs per day: 0.5 Smoking cigarettes per day: 10.0 Years smoked: 20 Smoking pack-years: 10.00 Smoking status: Former smoker Tobacco type: cigarettes Second hand tobacco smoke exposure: No Smoking end date: 09/30/88 Alcohol intake: current Alcohol use details: occasional glass of wine Substance use: never Substance use type: does not use Do You Feel Safe in your Home?: Yes Lack of Transportation: No Lack of Food: Never True Current Housing: I Have Housing Concerned About Future Housing: No Difficulty Paying Gas/Electric Bills: No Difficulty Paying for Meds: No Currently Unemployed: No Education: Trade/Vocational Certificate Difficulty w/ Childcare or Family Care: No Living arrangements: alone Gender identity (if verbalized by the patient): Female Spiritual care concerns: No Comments At time of signature, agree with nursing past medical, surgical, social and family history. There is no relevant family history pertinent to the presenting complaint. Exam Const: General: cooperative, healthy appearing, comfortable, no acute distress and well nourished Nutritional Appearance: well nourished Orientation/consciousness: patient oriented x3 Limitations: no limitations HENMT: Head: normal to inspection, normocephalic and atraumatic Ears: hearing grossly normal bilaterally, external ears normal, TM's normal bilaterally, EAC's normal and no periauricular adenopathy Face/Nose/Sinus: Normal external nose present, Abnormal mucous membranes and turbinates present erythematous bilateral and diffuse, normal facial exam, sinuses nontender and face symmetric Face and sinus: normal facial exam, sinuses nontender and face symmetric Mouth: Yes Normal oral and palatal mucosa present, Yes lip normal, Yes tongue normal, Yes Normal salivary glands and ducts present, Yes oropharynx normal and Yes moist mucous membranes Teeth and gingiva: dentition normal Throat: posterior oropharynx normal, tonsils normal and uvula midline Eyes: General: appearance normal, both eyes and all related structures Alignment and Position: alignment normal and position normal Periorbital: periorbital findings normal Eyelids: eyelids normal Pupils: Equal, round and reactive pupils present Neck: Neck: normal visual inspection, full ROM, no lymphadenopathy and supple Chest: Chest palpation & inspection: normal inspection of the chest and normal palpation of entire chest wall Resp: Effort & Inspection: normal respiratory effort, able to speak in complete sentences and Actively coughing actively coughing Auscultation: clear to auscultation bilaterally, no crackles, no rales, no rhonchi and no wheezes Cardio: Rate: regular rate Rhythm: regular rhythm Heart sounds: S1 normal heart sound present and S2 normal heart sound present GI: Inspection: normal to inspection Skin: General skin exam: normal color and no rashes or lesions noted Neuro: General: patient oriented x3 and moves all extremities Cranial nerves: Yes Equal, round and reactive pupils present Speech: normal speech Gait exam (Neuro): Normal gait present Extrem: General: normal to inspection, full ROM and no edema Psych: Appearance: grossly normal and well kempt Mental Status: mental status grossly normal Speech and movement: Normal speech and movement present Affect: normal affect Attitude: cooperative Thought process: Normal thought process present Course Course Emergency Course: Discharge instructions reviewed with patient, as well as provided in writing per nursing staff. The instructions also include specific and strict return/GO TO THE ER as well as f/u information. All questions have been answered, and the patient deny any further questions with discharge and discharge plan. Portions of this record may have been created with voice recognition software Level of Care: Express Care Visit Vital Signs Vital signs: Vital Signs Temperature 37.7 C H 11/06/24 19:19 Pulse Rate 81 11/06/24 19:19 Respiratory Rate 16 11/06/24 19:19 Blood Pressure 136/90 11/06/24 19:19 Pulse Oximetry 99 11/06/24 19:19 Temperature 37.7 C H 11/06/24 19:19 Pulse Rate 81 11/06/24 19:19 Respiratory Rate 16 11/06/24 19:19 Blood Pressure 136/90 11/06/24 19:19 Pulse Oximetry 99 11/06/24 19:19 Reviewed MDM - URI/Sore Throat MDM Narrative Medical decision making narrative: Pt well hydrated appearing, in no respiratory distress, hemodynamically stable. Recommend supportive care. The patient is stable at time of discharge the clinical impression was discussed and the patient was given the opportunity to ask questions, which were addressed as completely as possible given the information available at present. Anticipatory guidance and return to care precautions were discussed and the importance of primary care follow-up was stressed and encouraged. The patient voiced understanding of the plan, indications to return, and the need for follow-up. Differential diagnosis considered: Kaye virus, strep pharyngitis, allergic rhinitis, upper respiratory tract infection, sinusitis, rhinosinusitis, nasopharyngitis. viral pharyngitis, otitis media, otitis externa, otitis effusion, foreign body, cerumen impaction, viral syndrome, and influenza.? Exam findings show no acute concerns or changes; patient is non-toxic appearing and is in no distress.? Patient is appropriate for outpatient treatment and follow-up.? Medical Records Attestation: I reviewed the patient's medical records. Lab Data Attestation: I reviewed the patient's lab results. Labs: Lab Results 11/06/24 Range/Units 19:30 POC Influenza A Ag Positive (Negative) POC Influenza B Ag Negative (Negative) POC SARS CoV-2 Ag Negative (Negative) Discharge Plan Discharge Clinical Impression: Influenza Patient Disposition: Home, Self-Care Condition: Stable Instructions: Influenza (ED) Additional Instructions: Were positive for influenza A. Your Covid is negative Your symptoms are due to a viral illness, which is not treated with antibiotics. Viral symptoms can be present for up to a few weeks. -For fever/pain, you may take: Tylenol 650-1000mg by mouth every 4-6 hours. Do not exceed 4000mg in 24 hours. Advil (Ibuprofen) 600 mg by mouth every 6 hours. Do not exceed 2400mg in 24 hours. 8 AM: Tylenol 11 AM: Ibuprofen 2 PM: Tylenol 5 PM: Ibuprofen 8 PM: Tylenol 11 PM: Ibuprofen 2 AM: Tylenol 5 AM: Ibuprofen -Antihistamine medication such as Benadryl/Zyrtec at night and Claritin/Pamela during the day can help improve symptoms. -Use Flonase twice a day for 5 days then daily to help reduce the inflammation and dry up your sinuses. -You can also use Sudafed behind the pharmacy counter(12 or 24 hour). Be sure to drink plenty of water with these medications at least 8 ounces with every dose and it is important to drink 8 to 10 glasses of water per day. Water is a natural decongestant -Eat and drink things that are easy to swallow, like tea or soup, or popsicles. -Oral rinses such as: Salt water gargles and/or may use topical anesthetic (eg. Chloraseptic spray) or lozenges to relieve dryness or throat pain). -Frequent hand washing or hand asphalt patcher is one of the best ways to prevent spread of infection. -Using a vaporizer or humidifier at night will also help thin secretions and help with coughing up phlegm. -Follow up with primary care provider in 3-5 days if condition is not improving - For new or worsening symptoms go directly to the nearest ER Patient Language: [place] Citizen Prescriptions: New codeine-guaifenesin 10-100 mg/5 mL liquid 5 ml PO Q6H 5 Days Qty: 100 0RF No Action trazodone 50 mg tablet furosemide 20 mg tablet duloxetine 60 mg capsule,delayed release(DR/EC) PO amoxicillin-pot clavulanate [Augmentin] 500-125 mg tablet 1 tablet PO Q12H 5 Days Qty: 10 0RF ferrous sulfate 325 mg (65 mg iron) tablet,delayed release (DR/EC) 325 mg PO BID lisinopril 20 mg tablet 20 mg PO DAILY 90 Days Qty: 90 3RF pantoprazole 40 mg tablet,delayed release (DR/EC) 40 mg PO QAM Qty: 90 3RF atorvastatin 10 mg tablet 10 mg PO DAILY Qty: 90 3RF Follow-up/Referrals: Ramses,MD Charles [Primary Care Provider] - 3 Days Time of Disposition: 19:39
[2024-11-06 19:19] VITALS: BP 136/90; PULSE 81; RESP 16; TEMP 37.7; O2SAT 99
[2024-11-06 19:32] LABS: EDCOVIDSCREEN Negative (Negative); EDINFLUASCREEN Positive (Negative); EDINFLUBSCREEN Negative (Negative)
== END 2024-11-06 19:54 | disposition home or self-care (01) ==
PROVIDERS: Emergency Provider Nurse Practitioner Family; PCP Family Medicine
DX: J10.1 Influenza due to other identified influenza virus with other respiratory manifestations (principal); Z20.822 Contact with and (suspected) exposure to COVID-19; Z87.891 Personal history of nicotine dependence; I12.9 Hypertensive chronic kidney disease with stage 1 through stage 4 chronic kidney disease, or unspecified chronic kidney disease; N18.32 Chronic kidney disease, stage 3b; M85.80 Other specified disorders of bone density and structure, unspecified site; K22.70 Barrett's esophagus without dysplasia; E78.5 Hyperlipidemia, unspecified; M81.0 Age-related osteoporosis without current pathological fracture; Z86.16 Personal history of COVID-19; Z85.41 Personal history of malignant neoplasm of cervix uteri
CPT/HCPCS: 87426; 87804; 99213; G0463

== ENCOUNTER 2025-04-12 09:40 | Emergency (ER) | payer MEDICARE, SELFPAY ==
[2025-04-12 10:05] VITALS: BP 107/64; PULSE 72; RESP 16; TEMP 35.9; O2SAT 95
--- NOTE | 2025-04-12 10:31 | ED.URI ---
HPI - URI/Sore Throat General Chief Complaint: Upper Respiratory Infection Stated Complaint: Bodyaches Time Seen by Provider: 04/12/25 10:33 Source: patient, RN notes reviewed and old records reviewed Mode of arrival: ambulatory Limitations: no limitations History of Present Illness HPI Narrative: 74-year-old female presents to the [facility] with concerns for body aches patient reports that it just came on at 2:30 pm yesterday afternoon.. History of arthritis. Denies any fevers, cough, congestion, sore throat, sinus issues. Has taken 1 dose of Tylenol at midnight last night. Took to ibuprofen 200 mg this morning at 4:00 a.m.. Reports still having generalized body aches, mostly in her shoulders in joints. Denies any chest pain shortness of breath. Denies abdominal pain. Denies any urinary symptoms Treatments prior to arrival: acetaminophen and ibuprofen Related Data Home Medications ?Medication ?Instructions ?Recorded ?Confirmed ?Last Taken ?Type duloxetine 60 mg capsule,delayed 60 mg PO DAILY 10/14/24 04/12/25 Unknown History release furosemide 20 mg tablet 20 mg PO DAILY 10/14/24 04/12/25 Unknown History trazodone 50 mg tablet 25 mg PO HS PRN sleep 10/14/24 04/12/25 Unknown History Allergies Allergy/AdvReac Type Severity Reaction Status Date / Time grass pollen Allergy Unknown Itching Verified 04/12/25 10:07 poison fabrizio extract Allergy Unknown rash Verified 04/12/25 10:07 [place] Allergy Unknown Other Uncoded 04/12/25 10:07 Review of Systems Review of Systems: All systems reviewed & are unremarkable except as noted in HPI and below Constitutional: Constitutional: Reports as per HPI, Reports body ache(s), Denies fatigue, Denies fever(s) and Denies headache(s) ENT: Reports system reviewed and no additional complaints, except as documented Cardiovascular: Cardiovascular: Reports no additional cardiovascular complaints, Denies chest pain and Denies dyspnea Respiratory: Respiratory: Reports no additional respiratory complaints, Denies chest congestion, Denies cough and Denies dyspnea Gastrointestinal: Gastrointestinal: Reports no additional gastrointestinal complaints Genitourinary: Genitourinary: Reports no additional female genitourinary complaints Musculoskeletal: Musculoskeletal: Reports as per HPI and Reports myalgias Integumentary/Breasts: Skin/Breast: Reports system reviewed and no additional complaints, except as docu PMFSH Past Medical History Medical History Arthralgia of multiple joints Right shoulder pain Left shoulder pain Low back pain radiating to both legs Cervical radiculitis Cervicalgia COVID-19 08/16/22 Major depressive disorder, single episode, mild Chronic kidney disease (CKD) stage G3b/A1, moderately decreased glomerular filtration rate (GFR) between 30-44 mL/min/1.73 square meter and albuminuria creatinine ratio less than 30 mg/g Major depression Left knee pain Right knee pain Urinary urgency BMI 26.0-26.9,adult Post-nasal drip Chronic kidney disease, stage 3 unspecified Serum potassium elevated Adult BMI 25.0-25.9 kg/sq m Breast cancer screening Osteopenia Seasonal allergies Depression with anxiety Vitamin D deficiency Anemia History of cervical cancer Fatigue Anxiety Andrade esophagus Hyperlipidemia Rotator cuff tear, right Fracture of radius, distal, with ulna, right, closed Cervical cancer History of wrist fracture Osteoporosis Hypertension Supraspinatus tendon tear Surgical History Surgical History History of surgery on left wrist (~2007) H/O: hysterectomy Social History Social History Smoking packs per day: 0.5 Smoking cigarettes per day: 10.0 Years smoked: 20 Smoking pack-years: 10.00 Smoking status: Former smoker Tobacco type: cigarettes Second hand tobacco smoke exposure: No Smoking end date: 09/30/88 Alcohol intake: current Alcohol use details: occasional glass of wine Substance use: never Substance use type: does not use Do You Feel Safe in your Home?: Yes Lack of Transportation: No Lack of Food: Never True Current Housing: I Have Housing Concerned About Future Housing: No Difficulty Paying Gas/Electric Bills: No Difficulty Paying for Meds: No Currently Unemployed: No Education: Trade/Vocational Certificate Difficulty w/ Childcare or Family Care: No Living arrangements: alone Gender identity (if verbalized by the patient): Female Spiritual care concerns: No Comments At the time of my signature, I reviewed and agree with the nursing past medical, surgical, social, and family history. There is no relevant family history pertinent to the patient complaint. Exam Const: General: cooperative, healthy appearing, comfortable, no acute distress, well developed, alert and well nourished Nutritional Appearance: well nourished Orientation/consciousness: patient oriented x3 Limitations: no limitations HENMT: Head: normal to inspection Ears: hearing grossly normal bilaterally and external ears normal Mouth: Yes Normal oral and palatal mucosa present, Yes lip normal, Yes tongue normal and Yes moist mucous membranes Eyes: General: appearance normal, both eyes and all related structures Alignment and Position: alignment normal Neck: Neck: normal visual inspection, full ROM, no lymphadenopathy and no meningeal signs Chest: Chest palpation & inspection: normal inspection of the chest Resp: Effort & Inspection: normal respiratory effort and able to speak in complete sentences Auscultation: clear to auscultation bilaterally, no crackles, no rales, no rhonchi and no wheezes Cardio: Rate: regular rate GI: GI Palp: No abdominal tenderness : General: Yes no CVA tenderness Back/Spine/Pelvis: Back: No back tenderness Skin: General skin exam: normal color and no rashes or lesions noted Neuro: General: patient oriented x3, gait normal, moves all extremities and no meningeal signs Cognition (Neuro): normal cognition Speech: normal speech Gait exam (Neuro): Normal gait present Extrem: General: normal to inspection, full ROM, capillary refill normal and normal gait Right upper extremity: normal to inspection and full ROM Left upper extremity: normal to inspection and full ROM Psych: Appearance: grossly normal and well kempt Mental Status: mental status grossly normal Speech and movement: Normal speech and movement present and Clear speech present Affect: normal affect Attitude: cooperative Course Course Level of Care: Express Care Visit Vital Signs Vital signs: Vital Signs Temperature 96.7 F L 04/12/25 10:05 Pulse Rate 72 04/12/25 10:05 Respiratory Rate 16 04/12/25 10:05 Blood Pressure 107/64 04/12/25 10:05 Pulse Oximetry 95 04/12/25 10:05 Oxygen Delivery Room Air 04/12/25 10:05 Temperature 96.7 F L 04/12/25 10:05 Pulse Rate 72 04/12/25 10:05 Respiratory Rate 16 04/12/25 10:05 Blood Pressure 107/64 04/12/25 10:05 Pulse Oximetry 95 04/12/25 10:05 Oxygen Delivery Room Air 04/12/25 10:05 Reviewed MDM - URI/Sore Throat MDM Narrative Medical decision making narrative: Patient sitting comfortably in exam room. Patient is nontoxic, vitals are stable. Patient presents with complaints of body aches however sent in on set at 2:30 p.m. yesterday patient had taken 1 dose of Tylenol, 1 dose of ibuprofen Patient denies any symptoms. Denied chest pain, cough, fever, sore throat, congestion. Denies any chest pain or abdominal pain. Denies urinary symptoms. Just reports joint discomfort No acute findings noted on exam Patient appropriate for outpatient treatment with close follow-up Discharge instructions reviewed with patient, as well as provided in writing per nursing staff. The instructions also include specific and strict return/GO TO THE ER as well as f/u information. All questions have been answered, and the patient deny any further questions with discharge and discharge plan. Some parts of this dictation were generated by voice recognition software and may contain typographical and/or grammatical inaccuracies. Differential Diagnosis Differential diagnosis: Likely upper respiratory infection, viral infection and other (Arthritis) Critical Care Time Critical Care Time Critical Care Time: No Discharge Plan Discharge Clinical Impression: Arthralgia of multiple sites Patient Disposition: Home Condition: Stable Instructions: Antibiotic Form, Arthralgia (ED) Additional Instructions: Take Tylenol arthritis per package instructions While taking the meloxicam do not take ibuprofen or naproxen Follow-up with primary care provider this week For new or worsening symptoms go directly to the emergency room Patient Language: Dive[place] Prescriptions: New meloxicam 7.5 mg tablet 7.5 mg PO DAILY Qty: 10 0RF No Action trazodone 50 mg tablet 25 mg PO HS PRN (Reason: sleep) furosemide 20 mg tablet 20 mg PO DAILY duloxetine 60 mg capsule,delayed release(DR/EC) 60 mg PO DAILY lisinopril 20 mg tablet 20 mg PO DAILY 90 Days Qty: 90 3RF pantoprazole 40 mg tablet,delayed release (DR/EC) 40 mg PO QAM Qty: 90 3RF atorvastatin 10 mg tablet 10 mg PO DAILY Qty: 90 3RF Follow-up/Referrals: Ramses,MD Charles [Primary Care Provider] - 3 Days [facility] Time of Disposition: 10:47
== END 2025-04-12 10:52 | disposition home or self-care (01) ==
PROVIDERS: Emergency Provider Nurse Practitioner; PCP Family Medicine
DX: M25.512 Pain in left shoulder (principal); M25.511 Pain in right shoulder; I12.9 Hypertensive chronic kidney disease with stage 1 through stage 4 chronic kidney disease, or unspecified chronic kidney disease; N18.32 Chronic kidney disease, stage 3b; M85.80 Other specified disorders of bone density and structure, unspecified site; K22.70 Barrett's esophagus without dysplasia; E78.5 Hyperlipidemia, unspecified; M81.0 Age-related osteoporosis without current pathological fracture; Z85.41 Personal history of malignant neoplasm of cervix uteri; Z86.16 Personal history of COVID-19; Z87.891 Personal history of nicotine dependence; F32.9 Major depressive disorder, single episode, unspecified
CPT/HCPCS: 99213; G0463

== ENCOUNTER 2025-04-17 17:39 | Emergency (ER) | payer MEDICARE, SELFPAY ==
[2025-04-17] VITALS (7 sets, daily range): BP systolic 116–148; BP diastolic 57–91; PULSE 74–94; RESP 16–20; TEMP 36.9; O2SAT 95–100
--- OUTSIDE RECORDS SUMMARY | 2025-04-17 17:41 | XMS_ITS | Clinical Summary ---
Author Organization [facility] Address [address] [place] [address] Care Team Providers Care Tutoring Clinician Name Role Phone Sony Maryanne SAMPSON Primary Care Provider [phone] Allergies No known active allergies Medications escitalopram (LEXAPRO) 10 mg tablet Take 20 mg by mouth every morning Active atorvastatin (LIPITOR) 10 mg tablet Take 20 mg by mouth every morning Active lisinopril (PRINIVIL,ZESTR IL) 10 mg tablet Take 20 mg by mouth every morning Active triamterene-hyd roCHLOROthiazid e 37.5-25 mg per tablet Take 1 tablet by mouth every morning [address] (PROTONIX) 40 mg EC tabletIndicatio ns:Mucositis Prophylaxis Take 40 mg by mouth every morning 0 Active buPROPion SR (WELLBUTRIN SR) 150 mg 12 hr tablet Take 300 mg by mouth 2 (two) times a day [address] (VOLTAREN) 75 mg EC tablet Take 75 mg by mouth every morning Occasionally takes at HS as well Active oxyCODONE (ROXICODONE) 5 mg immediate release tabletIndicatio ns:Pain Take 1 tablet (5 mg total) by mouth every 4 (four) hours as needed for pain for up to 20 doses 20 tablet 3 Active tiZANidine (ZANAFLEX) 4 mg tablet Take 1 tablet (4 mg total) by mouth every 6 (six) hours as needed for muscle spasms for up to 5 days 20 tablet 3 Active Active Problems Problem Noted Date Diagnosed Date Diagnosis unknown 01/11/2023 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 Fatigue 07/23/2017 Adenocarcinoma of cervix 02/06/2011 Arthritis 02/06/2011 Malignant neoplastic disease 01/31/2010 Encounter for preventive health examination 11/2008 Resolved Problems Problem Noted Date Diagnosed Date Resolved Date History of malignant neoplas m of other parts of uterus 07/28/2018 07/28/2018 Overview (07/28/2018): Uterine Cancer - (Added by JE Conv) Surgical History Surgery Date Site/Laterality Comments UT TOTAL ABDOMINAL HYSTERECT W/WO RMVL TUBE OVARY Hysterectomy - (Added by JE Conv) BREAST BIOPSY 09/20/2020 Left HYSTERECTOMY FRACTURE SURGERY Medical History Medical History Date Comments History of malignant neoplas m of other parts of uterus Uterine Cancer - (Added by Chris Gibbons Conv) Cervical cancer (HCC) Osteoporosis Hypertension Peptic ulcer disease Arthritis Hx antineoplastic chemo 2019 Hx of therapeutic radiation 2019 Depression Family History Medical History Relation Name Comments Lung cancer Sister Anesthesia problems Neg Hx Relation Name Status Comments Sister Social History Tobacco Use Types Packs/Day Years Used Date Smoking Tobacco: Former Cigarettes 1 25 1 967 - 1991 Smokeless Tobacco: Never Alcohol Use Standard Drinks/Week Comments Yes 0 (1 standard drink = 0.6 oz pur e alcohol) 2 glasses wine per month Personal Safety Answer Date Recorded Have you ever been in or are you currently in a harmful physical or emotional relationship or is someone making you feel afraid or unsafe? 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 Gender Identity Not on file Sexual Orientation Not on file Obstetrics History Last Filed Vital Signs Vital Sign Reading Time Taken Comments Blood Pressure 119/72 01/13/2023 2:00 PM CDT Pulse 63 01/13/2023 2:00 PM CDT Temperature 36.7 C (98 F) 01/13/2023 2:00 PM CDT Respiratory Rate 17 01/13/2023 2:00 PM CDT Oxygen Saturation 93% 01/13/2023 2:00 PM CDT Inhaled Oxygen Concentration - - Weight 63 kg (138 lb 14.2 oz) 01/11/2023 3:15 PM CDT Height 160 cm (5' 2.99) 01/11/2023 3:15 PM CDT Body Mass Index 24.61 01/11/2023 3:15 PM CDT Plan of Treatment Health Maintenance Due Date Last Done Comments Depression Screening 1950 Hepatitis C Screening 1950 DTaP/Tdap/Td Vaccine (1 - Tdap) 1959 Hepatitis B Screening 1966 Pneumococcal vaccine 65+ (1 of 1 - PCV) 1998 Zoster Vaccine (1 of 2) 1998 Well Visit 65+ 2013 Osteoporosis Screening-Bone Density Scan 07/25/2022 07/25/2020 Fall Risk Assessment 01/14/2024 01/13/2023 Influenza Vaccine (#1) 2025 Breast Cancer Screening-Mammogram Discontinued 08/23/2020, 04/07/2019, 03/19/2018, Additional history exists Procedures Procedure Name Priority Date/Time Associated Diagnosis Comments SCREENING MAMMOGRAM BILATERAL W CALVIN Schedule Routine, Read Routine (OP Routine) 08/23/2020 8:29 AM CONTACT PRINTER DRY FILM Encounter for screening mammogram for malignant neoplasm of breast from Last 3 Months or Most Recently Relevant to Health Maintenance Results * Screening Mammogram Bilateral W Calvin (08/23/2020 8:29 AM CONTACT PRINTER DRY FILM) Anatomical Region Laterality Modality Breast Bilateral Mammography Narrative 08/30/2020 1:32 PM CONTACT PRINTER DRY FILM Mammogram Technique: Bilateral Digital Breast Tomosynthesis, Bilateral C-view 2D Screening mammogram. Views obtained: bilateral craniocaudal and bilateral mediolateral oblique. Computer Aided Detection was performed. Mammogram Findings: The present examination has been compared to prior imaging studies performed at [facility] on 03/18/2017, 03/19/2018 and 04/07/2019. There are scattered areas of fibroglandular density. There is asymmetry in the central breast on the mediolateral oblique view of the left breast. There is no suspicious abnormality in the right breast. Impression: Asymmetry in the left breast requires additional evaluation. Additional views are recommended. OVERALL FINAL ASSESSMENT: BI-RADS CATEGORY 0: Incomplete: Need additional imaging evaluation. Procedure Note Ling Alanis MD - 08/30/2020 Mammogram Technique: Bilateral Digital Breast Tomosynthesis, Bilateral C-view 2D Screening mammogram. Views obtained: bilateral craniocaudal and bilateral mediolateral oblique. Computer Aided Detection was performed. Mammogram Findings: The present examination has been compared to prior imaging studies performed at [facility] on 03/18/2017, 03/19/2018 and 04/07/2019. There are scattered areas of fibroglandular density. There is asymmetry in the central breast on the mediolateral obliqueview of the left breast. There is no suspicious abnormality in the right breast. Impression: Asymmetry in the left breast requires additional evaluation. Additional views are recommended. OVERALL FINAL ASSESSMENT: BI-RADS CATEGORY 0: Incomplete: Need additional imaging evaluation. 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
--- OUTSIDE RECORDS SUMMARY | 2025-04-17 17:41 | XMS_ITS | Referral Summary ---
Author Organization [facility] Address [address] [place] [address] Care Team Providers Care Coater Brake Linings Name Role Phone Sony Maryanne SAMPSON Primary Care Provider [phone] Allergies No known active allergies Medications escitalopram [...] Overview (07/28/2018): Uterine Cancer - (Added by TW Conv) Social History Tobacco Use Types Packs/Day Years [...] on file Legal Sex Female 9:17 PM [employer] OFFICER Gender Identity Not on file Sexual Orientation Not on file Last Filed Vital Signs Vital Sign Reading [...] 01/11/2023 3:15 PM CDT Plan of Treatment Not on file Procedures Procedure Name Priority Date/Time Associated Diagnosis Comments SCREENING MAMMOGRAM BILATERAL W CALVIN Schedule Routine, Read Routine (OP Routine) 08/23/2020 8:29 AM [employer] OFFICER Encounter for screening mammogram for malignant neoplasm of breast from Last 3 Months or Most Recently Relevant to Health Maintenance Results * Screening Mammogram Bilateral W Calvin (08/23/2020 8:29 AM [employer] OFFICER) Anatomical Region Laterality Modality Breast Bilateral Mammography Narrative 08/30/2020 1:32 PM [employer] OFFICER Mammogram Technique: Bilateral Digital Breast Tomosynthesis, Bilateral C-view 2D Screening mammogram. Views obtained: bilateral craniocaudal and bilateral mediolateral oblique. Computer Aided Detection was performed. Mammogram Findings: The present examination has been compared to prior imaging studies performed at [facility] on 03/18/2017, 03/19/2018 and 04/07/2019. There are [...] compared to prior imaging studies performed at [facility] on 03/18/2017, 03/19/2018 and 04/07/2019. 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
--- OUTSIDE RECORDS SUMMARY | 2025-04-17 17:41 | XMS_ITS | Encounter Summary ---
Author Organization [facility] Address [address] [place] [address] Care Team Providers Care Chaplain Name Role Phone Orville Bardales MD, Bogdan Duran Primary Care Provider Maryanne Cardoza NP Primary Care Provider [phone] Encounter Details Date Type Department Care Team ([facility] Contact Info) Description 10/31/2020 Telephone [facility] Mammography [address] [place] [address] Tamanna Carr, RT Social History Tobacco Use Types Packs/Day Years Used Date Smoking Tobacco: Former Cigarettes 7 1991 Smokeless Tobacco: Never Alcohol Use Standard Drinks/Week Comments Yes 0 (1 standard drink = 0.6 oz pur e alcohol) 2 glasses wine per month Comments No Sex and Gender Information Value Date Recorded Sex Assigned at Not on file Legal Sex Female 9:17 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
--- OUTSIDE RECORDS SUMMARY | 2025-04-17 17:41 | XMS_ITS | Encounter Summary ---
Author Organization [facility] Address [facility] [place] [address] Care Team Providers Care Certified Professional Controller Name Role Phone Bogdan Jacinto MD Primary Care Provider Unava ilable Encounter Details Date Type Department Care Team (Latest Contact Info) Description 08/05/2018 [facility] , Joey Vega MD Social History Tobacco Use Types Packs/Day Years Used Date Smoking Tobacco: Never Assessed Comments Unknown Sex and Gender Information Value Date Recorded Sex Assigned at Not on file Legal Sex Female 5:57 PM CDT Gender Identity Not on file Sexual Orientation Not on file documented as of this encounter Plan of Treatment Not on file documented as of this encounter Visit Diagnoses Not on filedocumented in this encounter Care Teams Certified Professional Controller Relationship Specialty Start Date End Date Bogdan Jacinto MD PCP - General INTERNAL MEDICINE 04/08/19 documented as of this encounter
--- OUTSIDE RECORDS SUMMARY | 2025-04-17 17:41 | XMS_ITS | Clinical Summary ---
Author Organization [facility] Address [address] [place] [address] Care Team Providers Care Cloth Bin Packer Name Role Phone Bogdan Jacinto MD Primary Care Provider Royce persaud Social History Tobacco Use Types Packs/Day Years Used Date Smoking Tobacco: Never Assessed Comments Unknown Sex and Gender Information Value Date Recorded Sex Assigned at Not on file Legal Sex Female 5:57 PM CDT Gender Identity Not on file Sexual Orientation Not on file Last Filed Vital Signs Vital Sign Reading Time Taken Comments Blood Pressure 118/70 02/01/2016 1:53 PM CDT Pulse 72 02/01/2016 1:53 PM CDT Temperature - - Respiratory Rate - - Oxygen Saturation - - Inhaled Oxygen Concentration - - Weight 62.6 kg (138 lb) 02/01/2016 1:53 PM CDT Height 160 cm (5' 3) 02/01/2016 1:53 PM CDT Body Mass Index 24.45 02/01/2016 1:53 PM CDT Plan of Treatment Health Maintenance Due Date Last Done Comments Hepatitis C 1966 DTaP, Tdap and Td Vaccines ( 1 - Tdap) 1967 Pneumococcal Vaccine: 50+ Ye ars (1 of 1 - PCV) 1998 Zoster Vaccines (1 of 2) 1998 Annual Medicare Wellness Visit 2013 RSV Immunization or 60+ Years (1 - 1-dose 75+ series) 2023 COVID-19 Vaccine ( - 2023-2 5 season) 2024 Dexa Scan (General) Completed 07/25/2020 Meningococcal B Vaccine Aged Out No l onger eligible based on patient's age to complete this topic Meningococcal Vaccine Aged Out No carmel ana eligible based on patient's age to complete this topic RSV Immunizations Under 20 Months Aged Out No longer eligible based on patient's age to complete this topic Procedures Procedure Name Priority Date/Time Associated Diagnosis Comments BONE DENSITY/DEXA Routine 07/25/2020 10: 46 AM CDT Unspecified fracture of the lower end of right radius, initial encounter for closed fracture Unspecified fracture of lower end of right ulna, initial encounter for closed fracture from Last 3 Months or Most Recently Relevant to Health Maintenance Results * BONE DENSITY/DEXA (07/25/2020 10:46 AM CDT) Anatomical Region Laterality Modality Bone Bone Density 07/25/2020 11:3 5 AM CDT Impressions 07/25/2020 11:36 AM CDT FINDINGS AND IMPRESSION: Examination performed on a [employer] Discovery SL .: LUMBAR SPINE L2-L4: 1. BMD: 0.953 g/cm2. 2. T score: -1.1. Previous T score: No previous available. 3. WHO classification: Mild osteopenia. 4. Fracture risk: Very low. LEFT FEMORAL NECK: 1. BMD: 0.592 g/cm2. 2. T score: -2.3. Previous T score: No previous available. 3. WHO classification: Very osteopenic. 4. Fracture risk: Low. Recommendations: Recommend therapy and follow up to assess response. Voice recognition software utilized. Interpreted By: Hector Metz, 07/25/2020 11:35 AM Narrative 07/25/2020 11:36 AM CDT Examination: BONE DENSITY/DEXA Exam date/time: 07/25/2020 10:31 AM Comparison studies:No previous available. Clinical history: RADIUS/ULNA FX . Postmenopausal status. Procedure Note Hector Metz MD - 07/25/2020 Examination: BONE DENSITY/DEXA Exam date/time: 07/25/2020 10:31 AM Comparison studies:No previous available. Clinical history: RADIUS/ULNA FX . Postmenopausal status. FINDINGS AND IMPRESSION: Examination performed on a [employer] SL .: LUMBAR SPINE L2-L4: 1. BMD: 0.953 g/cm2. 2. T score: -1.1. Previous T score: No previous available. 3. WHO classification: Mild osteopenia. 4. Fracture risk: Very low. LEFT FEMORAL NECK: 1. BMD: 0.592 g/cm2. 2. T score: -2.3. Previous T score: No previous available. 3. WHO classification: Very osteopenic. 4. Fracture risk: Low. Recommendations: Recommend therapy and follow up to assess response. Voice recognition software utilized. Interpreted By: Hector Metz, 07/25/2020 11:35 AM Bogdan Jacinto MD DEXA Final Result from Last 3 Months or Most Recently Relevant to Health Maintenance Insurance [employer] Care Teams Cloth Bin Packer Relationship Specialty Start Date End Date Bogdan Jacinto MD PCP - General INTERNAL MEDICINE 04/08/19
--- OUTSIDE RECORDS SUMMARY | 2025-04-17 17:41 | XMS_ITS | Data Portability ---
Author Organization [place] [employer], Main Office Address [address] [place] [address] Care Team Providers Care Boat Hop Name Role Phone CHARLES PEARCE Primary Care Provider Assessment Encounter Date Assessment Date Assessment LastModified by Organization Details LastModified Time 10/12/2024 10/12/2024 74 yo F with - MICROSCOPIC HEMATURIA, resolved - SUBCLINICAL HYPERTHYROIDISM, chronic - ANEMIA, improved - DEPRESSION - ANXIETY - CHRONIC INSOMNIA - HTN - HLD - GERD - ESSENTIAL TREMOR - CHRONIC BACK PAIN - VIT B12 DEFICIENCY - EX-SMOKER Annual labs: 04/09/24. US thyroid: 11/14/23. MRI C & L spine wo: 05/10/23. US thyroid: 05/08/23. Annual labs: 04/09/23. CXR: 03/13/23. D/w pt in detail about her conditions, recent labs & imagines and further plan of care. All meds verified with pt. Meds as directed. Advised pt to talk with close friend/family member on a regular basis. BP diary and fall risk precautions explained. Diet and exercise explained. Educated about alarming symptoms to monitor at home and call us back Or get checked in ED. Pt verbalized understanding it. Cont f/u with Endo as per schedule. Cont f/u with Pain clinic at [facility] as per schedule. Cont f/u with Ophtho as per schedule. Cont f/u with Gyne as per schedule. Cont f/u with Derm as per schedule. HM: WWE - 11/22, normal as per pt. Cont f/u with Gyne as per schedule. Mammo - 07/13/24, normal. Colonoscopy - 2017, normal as per pt. Cont f/u with GI as per schedule. DEXA - 3/23, osteopenia ++ as per pt. Flu - 07/01/24. Tdap, Pneumo, Shingrix - At pharmacy/HD. F/u in 3-4 months. Annual labs in 04/23. [email or web address] Not available 10/12/2024 15:20:15 01/19/2025 01/19/2025 74 yo F with - DEPRESSION - ANXIETY - CHRONIC INSOMNIA - HTN - HLD - GERD - ESSENTIAL TREMOR - SUBCLINICAL HYPERTHYROIDISM, chronic - ANEMIA - CHRONIC BACK PAIN - VIT B12 DEFICIENCY - EX-SMOKER - H/O MICROSCOPIC HEMATURIA Annual labs: 04/09/24. US thyroid: 11/14/23. MRI C & L spine wo: 05/10/23. US thyroid: 05/08/23. Annual labs: 04/09/23. CXR: 03/13/23. D/w pt in detail about her conditions, recent labs & imagines and further plan of care. All meds verified with pt. Meds as directed. Advised pt to talk with close friend/family member on a regular basis. BP diary and fall risk precautions explained. Diet and exercise explained. Educated about alarming symptoms to monitor at home and call us back Or get checked in ED. Pt verbalized understanding it. Cont f/u with Endo as per schedule. Cont f/u with Pain clinic at [facility] as per schedule. Cont f/u with Ophtho as per schedule. Cont f/u with Gyne as per schedule. Cont f/u with Derm as per schedule. HM: WWE - 11/22, normal as per pt. Cont f/u with Gyne as per schedule. Mammo - 07/13/24, normal. Colonoscopy - 2017, normal as per pt. Cont f/u with GI as per schedule. DEXA - 12/20, osteopenia ++ as per pt. Flu - 07/01/24. Tdap, Pneumo, Shingrix - At pharmacy/HD. F/u in 3-4 months. Annual labs in 04/23. [email or web address] Not available 01/19/2025 14:41:42 Plan of Treatment Reminders Order Date Submit Date Provider Last Modified By Organization Details Last Modified Time Details Appointments Physical/ Annual Wellness 30 2024 09:00Praful Pearce MD Not available Not available Not available Lab None recorded. Referral None recorded. Procedures None recorded. Surgeries None recorded. Imaging None recorded. Medication Orders cyanocoba dariel (vit B-12) 1,000 mcg/mL injection solution 2024 025 [email or web address] Not available 03/09/2025 15:32:15 furosemid e 20 mg tablet 2024 [email or web address], [address] [place] [address], [id number], 01/19/2025 14:38:42 lisinopri l 20 mg tablet 2024 025 [facility], [address] [place] [address], [id number], 01/19/2025 14:38:42 bupropion HCl XL 150 mg 24 hr tablet, extended release 2024 025 [facility], [address] [place] [address], [id number], 01/19/2025 14:38:44 ferrous sulfate 325 mg (65 mg iron) tablet 2024 025 [facility], [address] [place] [address], [id number], 01/19/2025 14:38:54 atorvasta tin 10 mg tablet 2024 025 [facility], [address] [place] [address], [address], 01/19/2025 14:38:40 Calcium 600 + D(3) 600 mg-10 mcg (400 unit) tablet 2024 025 [facility], [address] [place] [address], [address], 01/19/2025 14:38:40 trazodone 50 mg tablet 2024 025 [email or web address], [address] [place] [address], [address], 01/19/2025 14:38:38 cyanocoba dariel (vit B-12) 1,000 mcg/mL injection solution 2024 025 [email or web address] Not available 01/19/2025 15:16:39 cyclobenz aprine 10 mg tablet 2024 025 [email or web address], [address] [place] [address], 118[address], 01/19/2025 14:38:38 pantopraz ole 40 mg tablet,de layed release 2024 025 [email or web address], [address] [place] [address], [address], 01/19/2025 14:38:44 duloxetin e 60 mg capsule,d elayed release 2024 025 [email or web address], [address] [place] [address], [address], 01/19/2025 14:38:45 cyanocoba dariel (vit B-12) 1,000 mcg/mL injection solution 2024 025 [email or web address] Not available 12/16/2024 17:59:42 furosemid e 20 mg tablet 2024 025 [email or web address], [address] [place] [address], [address], 10/12/2024 15:21:59 lisinopri l 20 mg tablet 2024 025 [email or web address], [address] [place] [address], 479[address], 10/12/2024 15:22:01 bupropion HCl XL 150 mg 24 hr tablet, extended release 2024 025 [email or web address], [address] [place] [address], [address], 10/12/2024 15:22:03 ferrous sulfate 325 mg (65 mg iron) tablet 2024 025 [email or web address] [facility], [address] [place] [address], [address], 10/12/2024 15:23:13 atorvasta tin 10 mg tablet 2024 025 [email or web address], [address] [place] [address], [address], 10/12/2024 15:22:01 Calcium 600 + D(3) 600 mg-10 mcg (400 unit) tablet 2024 025 [email or web address], [address] [place] [address], [address], 10/12/2024 15:22:02 trazodone 50 mg tablet 2024 025 [email or web address], [address] [place] [address], [address], 10/12/2024 15:21:59 cyanocoba dariel (vit B-12) 1,000 mcg/mL injection solution 2024 025 [email or web address] Not available 10/12/2024 16:57:38 cyclobenz aprine 10 mg tablet 2024 025 [email or web address], [address] [place] [address], [address], 10/12/2024 15:22:03 pantopraz ole 40 mg tablet,de layed release 2024 025 [email or web address], [address] [place] [address], [address], 10/12/2024 15:22:01 duloxetin e 60 mg capsule,d elayed release 2024 025 [email or web address], [address] [place] [address] [place], [address], 10/12/2024 15:22:04 cyanocoba dariel (vit B-12) 1,000 mcg/mL injection solution 2023 024 [email or web address] Not available 08/06/2024 15:19:22 Patient TargetsNo targets recorded. Patient InstructionsNo instructions recorded. Reason for Referral None Reported. Results Created Date Observation Date Name Description Value Unit Range Abnormal Flag Note LastModifiedBy Organization Detail LastModifiedTime 07/13/2007/13/2024 MAMMO , scree rakan, bilat eral No observ ation record ed. [address], [address], 07/14/2024 10:54:47 07/13/2007/13/2024 MAMMO , scree rakan, bilat eral No observ ation record ed. [address], [address], 07/14/2024 13:49:42 Result Notes None recorded. Problems Name Problem SNOMED Code Status Onset Date Resolution Date Notes Provider Name and Address Organization Details Recorded Time Enthesopathy of hip region 03046367 Active Not Available [facility] 4 05:48:11 Varicose veins of lower extremity 50152355 Active Not Available [facility] 4 05:48:11 Urinary tract infectious disease 51103362 Active Charles Pearce MD [address] [place] [address], [address] , [facility] 4 14:22:48 Depressive disorder 26926956 Active 2022 Not Available [facility] 4 05:48:11 Anxiety disorder 719294935 Active 2022 Not Available [facility] 4 05:48:11 Hypertensive disorder 93413918 Active 2022 Not Available [facility] 4 05:48:11 Hyperlipidemi a 39045040 Active 2022 Not Available [facility] 4 05:48:11 Gastroesophag eal reflux disease without esophagitis 263425009 Active 2022 Not Available [facility] 4 05:48:11 Chronic back pain 734736233 Active 2022 Not Available [facility] 4 05:48:11 Ex-smoker 4236811 Active 2022 Not Available [facility] 4 05:48:11 Essential tremor 769749851 Active 2022 Not Available [facility] 4 05:48:11 Osteopenia 512816016 Active 2022 Not Available [facility] 4 05:48:11 Mammography abnormal 224595196 Active 2022 Not Available [facility] 4 05:48:11 Subclinical hyperthyroidi sm 550742273 Active 2022 Not Available [facility] 4 05:48:11 Microscopic hematuria 428863671 Active 2022 Not Available [facility] 4 05:48:11 Anemia 615513590 Active 2022 Not Available [facility] 4 05:48:11 Claustrophobi a 69888426 Active 2022 Not Available [facility] 4 05:48:11 Chronic insomnia 830744140 Active 2022 Not Available [facility] 4 05:48:11 Localized eruption of skin 602213403 Active 2023 Charles Pearce MD [address], [place], [address] , [facility] 4 14:09:18 Pigmented skin lesion of uncertain nature 039084922 Active 2023 Charles Pearce MD [address], [place], [address] , [facility] 4 14:22:03 Vitamin B12 deficiency (non anemic) 09707592 Active 2023 Charles Pearce MD [address], [place], [address] , [employer] 14:13:08 Problem Notes None recorded. Procedures Surgical History Date Name Laterality Status Provider Name and Address Organization Details Recorded Time 02/03/20 24 Medicare Wellness CPT Code, subsequent completed Arelis STEPHEN Grier [employer] 02/03/2024 14:38:49 04/16/20 23 Most Recent Mammogram completed Charles Pearce MD [address], [place], [address], [employer] 05/02/2023 14:37:48 04/16/20 22 Date of Last Mammogram completed Charles Pearce MD [address], [place], [address], [employer] 05/02/2023 14:37:48 09/30/19 22 Date of Last Colonoscopy completed Lianet Morales RN ND [employer] 03/12/2023 14:13:44 09/30/19 16 Shoulder joint surgery completed Lianet Morales RN ND [employer] 03/12/2023 14:13:11 09/30/19 01 Hysterectomy completed Lianet Morales RN ND [employer] 03/12/2023 14:12:29 Imaging Results None recorded. Procedure Notes None recorded. Medical Equipment None Reported. Allergies Allergen ID Allergen Name Allergen Category Reaction Reaction Severity Criticality Documentation Date Start Date Code Code System Note Provider Name and Address Organization Details Recorded Time 31268 No known allergy (situatio n) Not available Not available Not available Not available 07/01/2024 32077 [id number] SNOMED Charles Pearce MD [address], [place], [address], [employer] [facility] [employer] 14:22:36 No known drug allergies Medications Name Sig Start Date Stop Date Status Note LastModified by Organization Details LastModified Time Prescriptio n - Prior Authorizati on Request active Not Available Not Available N ot Available cyclobenzap rine 10 mg tablet Take 1 tablet every 12 hours by oral route as needed for 90 days. 2024 active Not Available Not Available Not Avai lable amoxicillin 500 mg capsule TAKE 1 CAPSULE BY MOUTH THREE TIMES A DAY UNTIL FINISHED 03/12 completed Not Available Not Available Not Available tizanidine 2 mg tablet TAKE 1 TABLET BY MOUTH AT BEDTIME NEEDED 04/09 completed Not Available Not Available Not Available trazodone 50 mg tablet Take 1 tablet every day by oral route at bedtime for 90 days. 2024 active Not Available Not Available Not Avai lable atorvastati n 10 mg tablet Take 1 tablet every day by oral route at bedtime for 90 days. 2024 active Not Available Not Available Not Avai lable azithromyci n 250 mg tablet TAKE 2 TABLETS BY MOUTH TODAY, THEN TAKE 1 TABLET DAILY FOR 4 DAYS DIRECTED 02/02 completed Not Available Not Available Not Available alprazolam 1 mg tablet TAKE 1 TABLET BY MOUTH 1 HOUR PRIOR TO EACH PROCEDURE active Not Available Not Available No t Available tizanidine 4 mg tablet TAKE 1/2 - 1 TABLET BY MOUTH THREE TIMES A DAY NEEDED FOR MUSCLE SPASTICIT Y 02/02 completed Not Available Not Available Not Available benzonatate 200 mg capsule TAKE 1 CAPSULE BY MOUTH 3 TIMES A DAY FOR 7 DAYS active Not Available Not Available No t Available cephalexin 250 mg capsule TAKE 1 CAPSULE BY MOUTH FOUR TIMES A DAY UNTIL FINISHED 04/01 completed Not Available Not Available Not Available hydrocodone 5 mg-acetamin ophen 325 mg tablet TAKE 1 TABLET EVERY 4-6 HOURS NEEDED FOR PAIN active Not Available Not Available No t Available lisinopril 20 mg tablet Take 1 tablet every day by oral route as directed for 90 days. 2024 active Not Available Not Available Not Avai lable prednisone 20 mg tablet TAKE 2 TABLETS BY MOUTH WITH FOOD EVERY DAY FOR 5 DAYS 04/01 completed Not Available Not Available Not Available venlafaxine ER 150 mg capsule,ext ended release 24 hr 04/25 completed Not Available Not Available Not Available acetaminoph en 300 mg-codeine 30 mg tablet TAKE ONE TABLET BY MOUTH EVERY 6 HOURS NEEDED FOR PAIN 04/09 completed Not Available Not Available Not Available ciprofloxac in 250 mg tablet 04/25 completed Not Available Not Available Not Available ciprofloxac in 500 mg tablet TAKE 1 TABLET BY MOUTH EVERY 12 HOURS UNTIL FINISHED 03/12 completed Not Available Not Available Not Available tramadol 50 mg tablet TAKE 1 TABLET BY MOUTH EVERY 8 HOURS NEEDED FOR PAIN 03/12 completed Not Available Not Available Not Available alprazolam 0.5 mg tablet TAKE 1 TABLET(0. 5MG)BY ORAL ROUTE TWICE A DAY 07/01 completed Not Available Not Available Not Available amoxicillin 875 mg tablet 04/25 completed Not Available Not Available Not Available benzonatate 100 mg capsule TAKE 1 CAPSULE BY MOUTH 3 TIMES A DAY NEEDED 02/02 completed Not Available Not Available Not Available cephalexin 500 mg capsule TAKE 1 CAPSULE BY MOUTH THREE TIMES A DAY DIRECTED FOR 7 DAYS 07/01 completed Not Available Not Available Not Available pantoprazol e 40 mg tablet,dirk yed release Take 1 tablet every day by oral route in the morning for 90 days. 2024 active Not Available Not Available Not Avai lable cyanocobala min (vit B-12) 1,000 mcg/mL injection solution Inject 1 mL every week by intramusc ular route for 180 days. 2024 active pt gia well Not Available Not Available Not Available ferrous sulfate 325 mg (65 mg iron) tablet Take 1 tablet twice a day by oral route after meals for 90 days. 2024 active Not Available Not Available Not Avai lable triamterene 37.5 mg-hydrochl orothiazide 25 mg tablet TAKE 1 TABLET BY MOUTH IN THE MORNING NEEDED FOR HYPERTENS ION 03/12 completed Not Available Not Available Not Available diclofenac sodium 75 mg tablet,dirk yed release 03/12 completed Not Available Not Available Not Available furosemide 20 mg tablet Take 1 tablet every day by oral route in the morning for 90 days. 2024 active Not Available Not Available Not Avai lable cefuroxime axetil 500 mg tablet TAKE 1 TABLET BY MOUTH TWICE A DAY FOR 7 DAYS 04/09 completed Not Available Not Available Not Available methylpredn isolone 4 mg tablets in a dose pack TAKE 6 TABLETS ON DAY 1 DIRECTED ON PACKAGE AND DECREASE BY 1 TAB EACH DAY FOR A TOTAL OF 6 DAYS 04/01 completed Not Available Not Available Not Available albuterol sulfate HFA 90 mcg/actuati on aerosol inhaler INHALE 2 PUFFS INHALATIO N ROUTE EVERY 4 HOURS NEEDED active Not Available Not Available No t Available fluticasone propionate 50 mcg/actuati on nasal spray,suspe nsion 1 SPRAY INTRANASA LLY EVERY 12 HOURS ADMINISTE R INTO EACH NOSTRIL active Not Available Not Available No t Available naproxen 500 mg tablet Take 1 tablet every 12 hours by oral route as needed for 90 days. active Not Available Not Available No t Available amoxicillin 875 mg-potassiu m clavulanate 125 mg tablet TAKE 1 TABLET BY MOUTH EVERY 12 HOURS FOR 7 DAYS 04/09 completed Not Available Not Available Not Available amoxicillin 500 mg-potassiu m clavulanate 125 mg tablet TAKE 1 TABLET BY MOUTH EVERY 12 HOURS FOR 5 DAYS active Not Available Not Available No t Available oxycodone 5 mg tablet 03/12 completed Not Available Not Available Not Available escitalopra m 20 mg tablet TAKE 1 TABLET BY MOUTH DAILY active Not Available Not Available No t Available Premarin 0.625 mg/gram vaginal cream APPLY A SMALL AMOUNT INTO VAGINA TWICE A WEEK active Not Available Not Available No t Available bupropion HCl XL 300 mg 24 hr tablet, extended release Take 1 tablet by oral route. 07/01 completed Not Available Not Available Not Available bupropion HCl XL 150 mg 24 hr tablet, extended release Take 1 tablet every day by oral route in the evening for 90 days. 2024 active Not Available Not Available Not Avai lable nitrofurant oin monohydrate /macrocryst als 100 mg capsule TAKE ONE CAPSULE (100MG) BY MOUTH EVERY 12 HOURS FOR 5 DAYS 07/01 completed Not Available Not Available Not Available duloxetine 30 mg capsule,del ayed release TAKE 1 TAB DAILY FOR 2 WEEKS, THEN INCREASE TO 2 TABS DAILY FOR 2 WEEKS, THEN CALL OFFICE 03/12 completed Not Available Not Available Not Available duloxetine 60 mg capsule,del ayed release Take 1 capsule every day by oral route at bedtime for 90 days. 2024 active Not Available Not Available Not Avai lable Calcium 600 + D(3) 600 mg-10 mcg (400 unit) tablet Take 1 tablet twice a day by oral route as directed for 90 days. 2024 active Not Available Not Available Not Avai lable Paxlovid 300 mg (150 mg x 2)-100 mg tablets in a dose pack PLEASE SEE ATTACHED FOR DETAILED DIRECTION S 03/12 completed Not Available Not Available Not Available Vitals Date Recorded Systolic And Diastolic Provider Name and Address Organization Details Last Updated DateTime 10/12/2024 140/90 mm[Hg] Keila Blum [address], [place], [address], [facility] [employer] 10/12/2024 15:30:11 Date Recorded Body height Body mass index (BMI) Body weight Body temperature Oxygen saturation Oxygen saturation in Arterial blood by Pulse oximetry Heart rate Provider Name and Address Organization Details Last Updated DateTime 5 158.75 cm 25.4 kg/m2 76964.2 2 g 97 [degF] 95 % 95 % 76 /min Dilcia Sandoval RN [facility] [employer] 15:16:12 Date Recorded Systolic And Diastolic Provider Name and Address Organization Details Last Updated DateTime 01/19/2025 140/80 mm[Hg] Keila Blum [address], [place], [address], [place] [employer] [facility] [employer] 01/19/2025 14:43:10 Date Recorded Body height Body mass index (BMI) Body weight Body temperature Oxygen saturation Oxygen saturation in Arterial blood by Pulse oximetry Heart rate Provider Name and Address Organization Details Last Updated DateTime 5 158.75 cm 25 kg/m2 15118.0 4 g 97.3 [degF] 98 % 98 % 77 /min Dilcia Sandoval RN [facility] [employer] [facility] 14:33:10 Social History Question Answer Notes LastModified by Organization Details LastModified Time Tobacco Smoking Status Former Smoker Maria L gomez, [facility] [employer] 05/02/2023 14:02:46 Do You Have An Advance Directive? Yes [email or web address] Information not available 03/12/2023 Are You Blind Or Do You Have Difficulty Seeing? No [email or web address] Information not available 05/02/2023 What Is Your Level Of Caffeine Consumption? Occasional [email or web address] Information not available 03/12/2023 What Is Your Code Status? DNR [email or web address] Information not available 05/02/2023 In The 14 Days Before Symptom Onset, Have You Had Close Contact With A Laboratory-confi rmed COVID-19 While That Case Was Ill? No [email or web address] Information not available 05/02/2023 In The 14 Days Before Symptom Onset, Have You Had Close Contact With A Person Who Is Under Investigation For COVID-19 While That Person Was Ill? No [email or web address] Information not available 05/02/2023 Are You Deaf Or Do You Have Serious Difficulty Hearing? No [email or web address] Information not available 05/02/2023 What Type Of Diet Are You Following? VEGETARIAN Information not available 03/12/2023 What Is The Highest Grade Or Level Of School You Have Completed Or The Highest Degree You Have Received? [id number] [email or web address] Information not available 05/02/2023 Have There Been Any Changes To Your Family Or Social Situation? No [email or web address] Information not available 05/02/2023 When Did You Quit Smoking? 16+yearssincelastc igarette Quit 30 Years Ago [email or web address] Information not available 05/02/2023 Do You Use Insect Repellent Routinely? Yes [email or web address] Information not available 05/02/2023 Where Do You Live? 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 02/03/2024 [email or web address] Information not available 02/03/2024 How Many Children Do You Have? 3 [email or web address] Information not available 05/02/2023 Do You Have Any Pets? Yes Dog [email or web address] Information not available 05/02/2023 What Is Your Relationship Status? Passed 6 Years Ago [email or web address] Information not available 03/12/2023 Do You Use Your Seat Belt Or Car Seat Routinely? Yes [email or web address] Information not available 05/02/2023 Do You Have Smoke And Carbon Monoxide Detectors In Your Home? Yes [email or web address] Information not available 05/02/2023 Are You Passively Exposed To Smoke? No [email or web address] Information not available 05/02/2023 Are There Any Smokers In Your House? No Lives Alone [email or web address] Information not available 05/02/2023 Do You Use Sunscreen Routinely? Yes [email or web address] Information not available 05/02/2023 Have You Recently Traveled Abroad? No [email or web address] Information not available 05/02/2023 Do You Have Difficulty Walking Or Climbing Stairs? No [email or web address] Information not available 05/02/2023 Are You Currently In School? No Information not available 05/02/2023 Sex: Unknown Functional Status Question Answer Note LastModified by Organizat ion Details LastModified Time Do you use any illicit or recreational drugs? No [email or web address] Information not available 05/02/2023 What is your level of alcohol consumption? Occasional [email or web address] Information not available 03/12/2023 Are you currently employed? No [email or web address] Information not available 05/02/2023 Do you have transportation difficulties? No [email or web address] Information not available 05/02/2023 Are you able to walk? [employer] [email or web address] Information not available 05/02/2023 Do you have difficulty doing errands alone? No [email or web address] Information not available 05/02/2023 Are you able to care for yourself? No [email or web address] Information n ot available 05/02/2023 Do you have difficulty dressing or bathing? No [email or web address] Information not available 05/02/2023 What is your exercise level? Occasional walks dog [email or web address] Information not available 03/12/2023 Mental Status Question Answer Note LastModified by Organizat ion Details LastModified Time Do you feel stressed (tense, restless, nervous, or anxious, or unable to sleep at night)? [id number] [email or web address] Information not available 05/02/2023 Do you have difficulty concentrating, remembering or making decisions? No [email or web address] Information no t available 05/02/2023 Family History Nothing Reported Notes:adopted Medical History No medical history recorded. Gynecological History Statement/Question Response If Post Menopausal, Age at Menopause 51 Date of Last Colonoscopy 09/30/2021 Date of Last Mammogram 04/16/2022 Most Recent Bone Density Date of LMP Sexually Active? Y STIs/STDs N HPV Vaccine N Most Recent Mammogram 04/16/2023 N Obstetrics History GPAL:G 0 P 0 0 0 0 Immunizations Vaccine Type Date Status Note Provider Nam e and Address Organization Details Recorded Time Influenza, high-dose, quadrivalent, PF 07/01/2023 completed Ervin gomez [facility] 07/01/2023 14:49:15 Influenza, high-dose, trivalent, PF 07/01/2024 completed Ervin gomez [facility] 07/01/2024 14:50:57 Past Encounters Encounter ID Performer Location Encounter Start Date Encounter Closed Date Diagnosis/Indication Diagnosis SNOMED-CT Code Diagnosis ICD10 Code Diagnosis Note [id number] Charles Pearce MD [address] [address] 03/12/2023 13:58:39 03/12/2023 14:54:24 Depressive disorder 48967125 F32.A Anxiety disorder 06 F41.9 Hypertensive disorder 38 727298 I10 Hyperlipidemia 95179745 E78.5 Gastroesop hageal reflux disease without esophagitis 606595700 K21.9 Chronic back pain 580625 002 G89.29 Ex-smoker 7577844 Z87.89 1 Essential tremor 5834549 09 G25.0 [id number] Charles Pearce MD [address] [address] 04/09/2023 09:48:21 04/09/2023 10:18:57 Hypertensive disorder 71615586 I10 Hyperlipidemia 94152703 E78.5 Gastroesop hageal reflux disease without esophagitis 615829476 K21.9 Essential tremor 7869395 09 G25.0 Chronic back pain 014619 002 G89.29 Depressive disorder 3548 9007 F32.A Anxiety disorder F41.9 Ex-smoker 4204141 Z87.89 1 Diabetes m ellitus screening 842966325 Z13.1 Screening mammography 24 066817 Z12.31 Osteopenia 447982264 M85 .80 [id number] Charles Pearce MD [address] [address] 05/02/2023 14:01:49 05/02/2023 14:36:25 Hypertensive disorder 72933805 I10 Hyperlipidemia 81340688 E78.5 Gastroesop hageal reflux disease without esophagitis 360719146 K21.9 Essential tremor 7798468 09 G25.0 Chronic back pain 433292 002 G89.29 Depressive disorder 3548 9007 F32.A Anxiety disorder 1263229 06 F41.9 Ex-smoker 0756184 Z87.89 1 Osteopenia 033482788 M85 .80 [facility]clin[facility] l hyperthyroidism 813305640 E05.90 Microscopic hematuria 19 2132150 R31.29 Anemia 363760673 D64.9 Claustrophobia 22562472 F40.240 [id number] Charles Pearce MD [place] [address] 1 05/08/2023 13:53:49 05/08/2023 14:31:13 [id number] Charles Pearce MD [place] [address] 1 05/23/2023 14:17:41 05/23/2023 14:41:44 Hypertensive disorder 68545444 I10 Hyperlipidemia 35711522 E78.5 Gastroesop hageal reflux disease without esophagitis 626529064 K21.9 Essential tremor 4544925 09 G25.0 Chronic back pain 150972 002 G89.29 Depressive disorder 3548 9007 F32.A Anxiety disorder F41.9 Ex-smoker 7759636 Z87.89 1 Osteopenia 416013111 M85 .80 Subclinica l hyperthyroidism 454707171 E05.90 Microscopic hematuria 19 5815051 R31.29 resolved Anemia 143637307 D64.9 Claustrophobia 12187145 F40.240 Chronic insomnia 9177013 04 F51.04 [id number] Charles Pearce MD [place] [address] 1 07/01/2023 14:17:20 07/01/2023 14:44:39 Subclinical hyperthyroidism 460093876 E05.90 Chronic insomnia 4285477 04 F51.04 Hypertensive disorder 38 415629 I10 Hyperlipidemia 29394106 E78.5 Gastroesop hageal reflux disease without esophagitis 179970279 K21.9 Essential tremor 8510745 09 G25.0 Chronic back pain 280715 002 G89.29 Depressive disorder 3548 9007 F32.A Anxiety disorder F41.9 Ex-smoker 3823359 Z87.89 1 Osteopenia 913375079 M85 .80 Anemia 350878398 D64.9 Claustrophobia 69847923 F40.240 Administra tion of influenza vaccine 00139176 Z23 [id number] Charles Pearce MD [address] [address] 07/25/2023 14:03:29 07/25/2023 15:49:46 [id number] Charles Pearce MD [place] [address] 1 08/05/2023 13:58:49 08/05/2023 14:26:45 Chronic insomnia 591272850 F51.04 Subclinica l hyperthyroidism 748232594 E05.90 Hypertensive disorder 38 157516 I10 Hyperlipidemia 43848829 E78.5 Gastroesop hageal reflux disease without esophagitis 148340198 K21.9 Essential tremor 5041910 09 G25.0 Chronic back pain 569597 002 G89.29 Depressive disorder 3548 9007 F32.A Anxiety disorder F41.9 Ex-smoker 5954969 Z87.89 1 Osteopenia 404346803 M85 .80 Anemia 198370713 D64.9 Claustrophobia 37218705 F40.656 [id number] Charles Pearce MD [address] [address] 1 11/05/2023 13:59:51 11/05/2023 14:23:41 Anemia 368136415 D64.9 Chronic insomnia 2114439 04 F51.04 Subclinica l hyperthyroidism 694745778 E05.90 Hypertensive disorder 38 919043 I10 Hyperlipidemia 76065932 E78.5 Gastroesop hageal reflux disease without esophagitis 938197836 K21.9 Essential tremor 9968416 09 G25.0 Chronic back pain 905296 002 G89.29 Depressive disorder 3548 9007 F32.A Anxiety disorder F41.9 Osteopenia 260007077 M85 .80 Ex-smoker 3405601 Z87.89 1 [id number] Charles Pearce MD [address] [address] 02/03/2024 13:57:48 02/03/2024 15:02:59 Chronic insomnia 721134343 F51.04 Anemia 665289777 D64.9 Subclinica l hyperthyroidism 654217229 E05.90 Hypertensive disorder 38 373844 I10 Hyperlipidemia 45953287 E78.5 Gastroesop hageal reflux disease without esophagitis 991226895 K21.9 Essential tremor 1378245 09 G25.0 Chronic back pain 982593 002 G89.29 Depressive disorder 3548 9007 F32.A Anxiety disorder F41.9 Osteopenia 565313703 M85 .80 Ex-smoker 6286997 Z87.89 1 Adult [facility] examination 637273460 Z00.00 Screening for disorder 028229796 Z13.9 [id number] Charles Pearce MD [address] [address] 04/09/2024 11:43:18 04/09/2024 12:25:52 Chronic insomnia 763228923 F51.04 Anemia 688752503 D64.9 Subclinica l hyperthyroidism 781694105 E05.90 Hypertensive disorder 38 596452 I10 Hyperlipidemia 51040318 E78.5 Gastroesop hageal reflux disease without esophagitis 381738997 K21.9 Essential tremor 8519542 09 G25.0 Chronic back pain 911519 002 G89.29 Depressive disorder 3548 9007 F32.A Anxiety disorder F41.9 Osteopenia 496820999 M85 .80 Ex-smoker 0560403 Z87.89 1 Screening mammography 24 987128 Z12.31 [id number] Charles Pearce MD [address] [address] 04/29/2024 14:03:39 04/29/2024 14:59:59 Hypertensive disorder 50048888 I10 Anemia 136325153 D64.9 Chronic insomnia 5455865 04 F51.04 Subclinica l hyperthyroidism 655014510 E05.90 Hyperlipidemia 26386432 E78.5 Gastroesop hageal reflux disease without esophagitis 903419214 K21.9 Essential tremor 5880293 09 G25.0 Chronic back pain 577113 002 G89.29 Depressive disorder 3548 9007 F32.A Anxiety disorder F41.9 Osteopenia 779342212 M85 .80 Ex-smoker 6640130 Z87.89 1 Microscopic hematuria 19 3724248 R31.29 [id number] Charles Pearce MD [address] [address] 06/08/2024 12:40:51 06/08/2024 12:52:11 [id number] Charles Pearce MD [address] [address] 06/11/2024 14:07:27 06/11/2024 14:39:14 Localized eruption of skin 338086402 R21 Rt leg - 2 Pigmented skin lesion of uncertain nature 642297344 L81.9 [id number] Charles Pearce MD [address] [address] 07/01/2024 14:00:37 07/01/2024 14:27:31 Hypertensive disorder 75473419 I10 Anemia 956349851 D64.9 Chronic insomnia 6496482 04 F51.04 Subclinica l hyperthyroidism 999345355 E05.90 Hyperlipidemia 56134264 E78.5 Gastroesop hageal reflux disease without esophagitis 846852717 K21.9 Essential tremor 3438344 09 G25.0 Chronic back pain 679814 002 G89.29 Depressive disorder 3548 9007 F32.A Anxiety disorder F41.9 Osteopenia 152025938 M85 .80 Ex-smoker 7463142 Z87.89 1 Microscopic hematuria 19 7987096 R31.29 Resolved Administra tion of influenza vaccine 28963920 Z23 Vitamin B1 2 deficiency (non anemic) 53723640 E53.8 [id number] Charles Pearce MD [address] [address] 08/06/2024 15:01:44 08/06/2024 15:39:59 Vitamin B12 deficiency (non anemic) 50848458 E53.8 [id number] Charles Pearce MD [address] [address] 10/12/2024 15:07:10 10/12/2024 15:33:04 Microscopic hematuria 109838133 R31.29 Resolved Anemia 558784018 D64.9 Hypertensive disorder 38 109669 I10 Chronic insomnia 9679083 04 F51.04 Subclinica l hyperthyroidism 833452117 E05.90 Chronic Hyperlipidemia 21205410 E78.5 Gastroesop hageal reflux disease without esophagitis 557645069 K21.9 Essential tremor 2360290 09 G25.0 Chronic back pain 198270 002 G89.29 Depressive disorder 3548 9007 F32.A Anxiety disorder 5761404 06 F41.9 Osteopenia 830788174 M85 .80 Ex-smoker 1195150 Z87.89 1 Vitamin B1 2 deficiency (non anemic) 93077806 E53.8 [id number] Charles Pearce MD [address] [address] 12/16/2024 16:56:58 12/17/2024 14:32:04 Vitamin B12 deficiency (non anemic) 18199679 E53.8 [id number] Charles Pearce MD [address] [address] 01/19/2025 14:26:59 01/19/2025 14:57:30 Hypertensive disorder 86641076 I10 Chronic insomnia 4714869 04 F51.04 Microscopic hematuria 19 1706261 R31.29 Resolved Anemia 296526457 D64.9 Subclinica l hyperthyroidism 723614746 E05.90 Chronic Hyperlipidemia 62257907 E78.5 Gastroesop hageal reflux disease without esophagitis 362376392 K21.9 Essential tremor 5103094 09 G25.0 Chronic back pain 988813 002 G89.29 Depressive disorder 3548 9007 F32.A Anxiety disorder 1252705 06 F41.9 Osteopenia 525066561 M85 .80 Ex-smoker 0996336 Z87.89 1 Vitamin B1 2 deficiency (non anemic) 94950471 E53.8 [id number] Charles Pearce MD [facility] [address] [address] 03/09/2025 15:00:21 03/09/2025 16:37:36 Vitamin B12 deficiency (non anemic) 30297859 E53.8 Health Concerns Section Related Observation LastModified by Organization Detai ls LastModified Time None Recorded Concern Status LastModified by Organization Details LastModified Time None Recorded Advance Directives Directive Y: Payers Insurance Date Sequence Insurance Name Policy Number Policy Walton Covered Member ID Walton Member ID Guarantor Name 03/09/2025 1 [facility] [employer] - MEDICARE COMPLETE PLAN 2 (MEDICARE REPLACEMENT HMO) [id number] Angela Mcmillan [id number] Angela Mcmillan 03/09/2025 1 [facility] (MEDICARE REPLACEMENT HMO) Angela Mcmillan [id number] Angela Mcmillan Notes Date Note Type Note Provider Name and Address Organization Details Recorded Time 10/12/2024 text/html Pt is here for f /u on her meds and chronic conditions. Doing overall well. Denies any problem with meds. Denies any new concern. Pt wants to get Vit B12 shot today. Pt is doing overall well with her mood. Denies any mood swings/SI/HI. Pt is f/u with her Gyne for intermittent vaginal spotting and is doing well now. Pt is f/u with Endo and they are doing more labs and US for her. Pt is f/u with Derm for her Rt lower leg skin cancer and will be getting more procedure done with them next month. Pt is f/u with [facility] [place] for her chronic neck and low back pain and she got epidural shot with them and she is doing much better now. Charles Pearce MD [address], [place], [address], [employer] [facility] [employer] 10/12/2024 15:31:26 01/19/2025 text/html Pt is here for f /u on her meds and chronic conditions. Doing overall well. Denies any problem with meds. Denies any new concern. Pt wants to get Vit B12 shot today. Pt is doing overall well with her mood. Denies any mood swings/SI/HI. Pt is f/u with her Gyne for intermittent vaginal spotting and is doing well now. No more concern with it. Pt is f/u with Endo and they are doing more labs and US for her. Pt is f/u with Derm for her Rt lower leg skin cancer and will be getting more procedure done with them next month. Pt is f/u with [facility] clinic ([facility] [place] for her chronic neck and low back pain and she got epidural shot with them and she is doing much better now. Charles Pearce MD [address], [facility] [address], [place], [address], [employer] 01/19/2025 14:43:40 OBGyn Episode No OBEpisode recorded.
--- OUTSIDE RECORDS SUMMARY | 2025-04-17 20:00 | XMS_ITS | Referral Summary ---
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 Views obtained: bilateral craniocaudal and bilateral mediolateral oblique. Computer Aided Detection was performed. Mammogram Findings: The present examination has been compared to prior imaging studies performed at [facility] on 03/18/2017, 03/19/2018 and 04/07/2019. There are [...] compared to prior imaging studies performed at [facility] on 03/18/2017, 03/19/2018 and 04/07/2019. There are [...] to Health Maintenance Insurance [employer]LL[employer] MEDICARE HMO [facility] WELLCARE MEDICARE HMO Advance Directives For more information, please contact: [phone] Documents on File Type Date Recorded Patient Drier Operator Expl anation ADVANCE DIRECTIVE 11/01/2020 12:31 PM Power of Senior Sourcing Manager-Medical * Full Code (Latest Code Status on File) Date Activated Date Inactivated Comments 01/11/2023 3:08 PM 01/13/2023 11:21 PM Care Teams City Clerk Relationship Specialty Start Date End Date Maryanne Cardoza NP PCP - General Family Medicine 01/11/23
--- OUTSIDE RECORDS SUMMARY | 2025-04-17 20:00 | XMS_ITS | Encounter Summary ---
Author Organization [facility] Address formerly [facility] [place] [address] Care Team Providers Care Ruby On Rails Software Developer Name Role Phone Bogdan Jacinto MD Primary Care Provider Unava ilable Encounter Details Date Type Department Care Team (Latest Contact Info) Description 08/05/2018 Abstract [facility] , Joey Vega MD Social [...] on filedocumented in this encounter Care Teams Ruby On Rails Software Developer Relationship Specialty Start Date End Date Bogdan Jacinto MD PCP - General INTERNAL MEDICINE 04/08/19 documented as of this encounter
--- OUTSIDE RECORDS SUMMARY | 2025-04-17 20:00 | XMS_ITS | Clinical Summary ---
Author Organization [facility] Address [address] [place] [address] Care Team Providers Care Electronic Publishing Specialist Name Role Phone Bogdan Jacinto MD Primary [...] FINDINGS AND IMPRESSION: Examination performed on a [employer] Discovery SL .: LUMBAR SPINE L2-L4: 1. [...] FINDINGS AND IMPRESSION: Examination performed on a [employer] Discovery SL .: LUMBAR SPINE L2-L4: 1. [...] to Health Maintenance Insurance [employer] Care Teams Electronic Publishing Specialist Relationship Specialty Start Date End Date Bogdan Jacinto MD PCP - General INTERNAL MEDICINE 04/08/19
--- OUTSIDE RECORDS SUMMARY | 2025-04-17 20:00 | XMS_ITS | Encounter Summary ---
Author Organization [facility] Address [address] [place] [address] Care Team Providers Care Finance Business Partner Name Role Phone Orville Bardales MD, Bogdan Duran Primary Care Provider Maryanne Cardoza NP Primary Care Provider [phone] Encounter Details Date Type Department Care Team (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
--- OUTSIDE RECORDS SUMMARY | 2025-04-17 20:00 | XMS_ITS | Clinical Summary ---
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 Views obtained: bilateral craniocaudal and bilateral mediolateral oblique. Computer Aided Detection was performed. Mammogram Findings: The present examination has been compared to prior imaging studies performed at [facility] on 03/18/2017, 03/19/2018 and 04/07/2019. There [...] compared to prior imaging studies performed at [facility] on 03/18/2017, 03/19/2018 and 04/07/2019. There [...] to Health Maintenance Insurance WELLCARE MEDICARE HMO [facility] WELLCARE MEDICARE HMO Advance Directives For more information, please contact: [phone] Documents on File Type Date Recorded Patient Padded Box Sewer Expl anation ADVANCE DIRECTIVE 11/01/2020 12:31 PM Power of Strap Cutting Machine Operator-Medical * Full Code (Latest Code Status on File) Date Activated Date Inactivated Comments 01/11/2023 3:08 PM 01/13/2023 11:21 PM Care Teams Florist Supplies Salesperson Relationship Specialty Start Date End Date Maryanne Cardoza NP PCP - General Family Medicine 01/11/23
[2025-04-17 20:26] LABS: Hematocrit 32.9 % (37.0-47.0); Hemoglobin 11.2 g/dL (12.0-15.0); Immature Granulocyte Percent A 1.6 % (0-0.5); Lymphocytes Absolute Auto 0.68 K/mm3 (0.9-3.2); Mean Corpuscular HGB Conc 34.0 g/dl (32-36); Mean Corpuscular Hemoglobin 30.8 pg (26-34); Mean Corpuscular Volume 90.4 fl (80-100); Nucleated Red Blood Cells Absolute Auto 0.000 K/mm3 (0.0-0.012); Nucleated Red Blood Cells Perc 0.0 % (0.0-0.2); Platelet Count Result 318 k/mm3 (150-375); Red Blood Count 3.64 M/mm3 (4.2-5.4); White Blood Count 13.5 K/mm3 (4.5-10.0)
[2025-04-17 20:47] LABS: Anisocytosis 1+
[2025-04-17 20:48] LABS: Hypochromasia 1+; Microcytosis 1+ (NORMAL); Schistocytes None Seen
[2025-04-17 20:50] LABS: Alanine Aminotransferase 61 U/L (6-35); Albumin Level 3.3 g/dL (3.5-5.1); Alkaline Phosphatase 369 U/L (38-126); Anion Gap 11 mmol/L (4-12); Aspartate Amino Transferase 73 U/L (14-36); Bilirubin,Total 2.0 mg/dL (0.2-1.3); Blood Urea Nitrogen 20 mg/dL (7-17); Calcium 8.5 mg/dL (8.4-10.2); Carbon Dioxide 21 mmol/L (22-30); Chloride 97 mmol/L (98-107); Creatine Kinase 33 U/L (30-135); Estimated CRCL calculation 31 ml/min; Estimated Glomerular Filt Rate 47; Glucose 159 mg/dL (65-110); Magnesium 1.5 mg/dL (1.6-2.3); Potassium 2.9 mmol/L (3.4-5.0); Sodium 129 mmol/L (137-145); Total Protein 6.7 g/dL (6.3-8.2)
--- NOTE | 2025-04-17 20:55 | ED_ITS ---
HPI - General Adult General Chief complaint: Unspecified Stated complaint: Pain Everywhere Time Seen by Provider: 04/17/25 19:03 History of Present Illness HPI narrative: 74-year-old female presenting to the emergency department for evaluation of diffuse myalgias ongoing for approximately a week. Denies any recent illnesses or changes to her medications. Endorses occasional nonproductive cough and drainage but denies any shortness a breath, nausea, vomiting, abdominal pain, back pain, fever, chills. No recent medication changes. Patient has a history of hyperlipidemia, chronic kidney disease, hypertension. On a statin for hyperlipidemia. Went to urgent care several days ago and was prescribed meloxicam without any improvement in symptoms. She came to the ER for evaluation. Related Data Home Medications ?Medication ?Instructions ?Recorded ?Confirmed ?Last Taken ?Type duloxetine 60 mg capsule,delayed 60 mg PO DAILY 10/14/24 04/12/25 Unknown History release furosemide 20 mg tablet 20 mg PO DAILY 10/14/24 04/12/25 Unknown History trazodone 50 mg tablet 25 mg PO HS PRN sleep 10/14/24 04/12/25 Unknown History Allergies Allergy/AdvReac Type Severity Reaction Status Date / Time grass pollen Allergy Unknown Itching Verified 04/17/25 18:02 poison fabrizio extract Allergy Unknown rash Verified 04/17/25 18:02 Maple Tree Allergy Unknown Other Uncoded 04/17/25 18:02 Review of Systems 2 Review of Systems: As reviewed above in HPI [facility] Past Medical History Medical History Arthralgia of multiple joints Right shoulder pain Left shoulder pain Low back pain radiating to both legs Cervical radiculitis Cervicalgia COVID-19 08/16/22 Major depressive disorder, single episode, mild Chronic kidney disease (CKD) stage G3b/A1, moderately decreased glomerular filtration rate (GFR) between 30-44 mL/min/1.73 square meter and albuminuria creatinine ratio less than 30 mg/g Major depression Left knee pain Right knee pain Urinary urgency BMI 26.0-26.9,adult Post-nasal drip Chronic kidney disease, stage 3 unspecified Serum potassium elevated Adult BMI 25.0-25.9 kg/sq m Breast cancer screening Osteopenia Seasonal allergies Depression with anxiety Vitamin D deficiency Anemia History of cervical cancer Fatigue Anxiety Andrade esophagus Hyperlipidemia Rotator cuff tear, right Fracture of radius, distal, with ulna, right, closed Cervical cancer History of wrist fracture Osteoporosis Hypertension Supraspinatus tendon tear Surgical History Surgical History History of surgery on left wrist (~2007) H/O: hysterectomy Social History Social History Smoking packs per day: 0.5 Smoking cigarettes per day: 10.0 Years smoked: 20 Smoking pack-years: 10.00 Smoking status: Former smoker Tobacco type: cigarettes Second hand tobacco smoke exposure: No Smoking end date: 09/30/88 Alcohol intake: current Alcohol use details: occasional glass of wine Substance use: never Substance use type: does not use Do You Feel Safe in your Home?: Yes Lack of Transportation: No Lack of Food: Never True Current Housing: I Have Housing Concerned About Future Housing: No Difficulty Paying Gas/Electric Bills: No Difficulty Paying for Meds: No Currently Unemployed: No Education: Trade/Vocational Certificate Difficulty w/ Childcare or Family Care: No Living arrangements: alone Gender identity (if verbalized by the patient): Female Spiritual care concerns: No Exam 2 Narrative: GENERAL: [Well-appearing, well-nourished, and in no acute distress.] HEAD: [Normocephalic, atraumatic.] EYES: [PERRLA and EOMI.] ENT: Nares clear, no rhinorrhea or epistaxis. Mucous membranes moist. NECK: Supple. CHEST: [Clear to auscultation. No respiratory distress.] HEART: [Regular rate and rhythm]. No murmur heard. [Normal peripheral pulses.] ABDOMEN: [Soft, nondistended], [nontender], [No rigidity or guarding] EXTREMITIES: Normal range of motion. [No edema.] SKIN: Warm, dry, no rash. NEURO: [No focal deficits]. Alert and oriented [x3.] PSYCH: [Normal mood and affect.] Course Vital Signs Vital signs: Vital Signs Temperature 36.9 C 04/17/25 17:56 Pulse Rate 74 04/17/25 17:56 Respiratory Rate 20 04/17/25 17:56 Blood Pressure 143/91 H 04/17/25 17:56 Pulse Oximetry 100 04/17/25 17:56 Oxygen Delivery Room Air 04/17/25 17:56 Temperature 37.2 C 04/18/25 01:44 Pulse Rate 74 04/18/25 01:44 Respiratory Rate 18 04/18/25 01:44 Blood Pressure 119/40 L 04/18/25 01:44 Pulse Oximetry 99 04/18/25 01:44 Oxygen Delivery Room Air 04/17/25 17:56 Medical Decision Making [facility] Narrative Medical decision making narrative: 74-year-old female presenting to the emergency department for evaluation of diffuse myalgias ongoing for approximately a week. Denies any recent illnesses or changes to her medications. Endorses occasional nonproductive cough and drainage but denies any shortness a breath, nausea, vomiting, abdominal pain, back pain, fever, chills. No recent medication changes. Patient has a history of hyperlipidemia, chronic kidney disease, hypertension. On a statin for hyperlipidemia. Went to urgent care several days ago and was prescribed meloxicam without any improvement in symptoms. She came to the ER for evaluation. Patient is overall well-appearing not any acute distress but is complaining of diffuse myalgias in all her major muscle groups. Mildly hypertensive but not severe. No tachypnea, tachycardia, fever or hypoxia unremarkable neurological assessment, soft compartments the major muscle groups. Laboratory studies were obtained including CBC, CMP, magnesium, CPK level. Initial lytes came back with significant derangements including dehydration, low magnesium and low potassium. She is given potassium magnesium supplement IV, IV hydration with normal saline 2 L, morphine for analgesia and a repeat chemistry panel after completion. COVID swabs obtained. Patient's repeat laboratory studies show improvement her electrolytes but she still has some persistent elevated LFTs. Patient was re-evaluated after medications and fluids and she feels much better. She does not have any right upper quadrant pain, nausea, vomiting or any GI or symptoms at this time. I discussed that she likely has some kind of viral syndrome that caused her myalgias and could be causing some reactive LFT elevations. She will be sent home with prescription medications for pain medicine and electrolytes and she lost follow-up with regular doctor which she was comfortable with. She was given very strict return precautions regarding any right upper quadrant pain, nausea, vomiting, fevers, GI concerns otherwise and she should come back to the ER which she verbalized understanding. Patient safely discharged home at this time. Medical Records Medical records reviewed: Yes I reviewed the external patient's medical records. Vital Signs Vital Signs: Vital Signs Temperature 36.9 C 04/17/25 17:56 Pulse Rate 74 04/17/25 17:56 Respiratory Rate 20 04/17/25 17:56 Blood Pressure 143/91 H 04/17/25 17:56 Pulse Oximetry 100 04/17/25 17:56 Oxygen Delivery Room Air 04/17/25 17:56 Temperature 37.2 C 04/18/25 01:44 Pulse Rate 74 04/18/25 01:44 Respiratory Rate 18 04/18/25 01:44 Blood Pressure 119/40 L 04/18/25 01:44 Pulse Oximetry 99 04/18/25 01:44 Oxygen Delivery Room Air 04/17/25 17:56 Lab Data Lab results reviewed: Yes I reviewed the patient's lab results. 04/17/25 20:20 04/17/25 23:39 Labs: Lab Results 04/17/25 04/17/25 04/17/25 Range/Units 20:20 21:10 23:39 WBC 13.5 H (4.5-10.0) K/mm3 RBC 3.64 L (4.2-5.4) M/mm3 Hgb 11.2 L (12.0-15.0) g/dL Hct 32.9 L (37.0-47.0) % MCV 90.4 (80-100) fl MCH 30.8 (26-34) pg MCHC 34.0 (32-36) g/dl RDW 13.2 (11.5-14.5) % Plt Count 318 (150-375) k/mm3 MPV 9.7 (7.4-10.4) fl Immature Gran % (Auto) 1.6 H (0-0.5) % Neut % (Auto) 84.9 H (45.5-73.1) % Lymph % (Auto) 5.0 L (18.3-44.2) % Wheeler % (Auto) 8.1 (2.6-8.5) % Eos % (Auto) 0.1 (0-4.4) % Baso % (Auto) 0.3 (0.2-1.2) % Lymph # (Auto) 0.68 L (0.9-3.2) K/mm3 Wheeler # (Auto) 1.1 H (0.1-0.6) K/mm3 Eos # (Auto) 0.0 (0-0.3) K/mm3 Baso # (Auto) 0.0 (0.0-0.1) K/mm3 Abs Immat Gran (auto) 0.22 H (0.00-0.031) K/mm3 Absolute Neuts (auto) 11.5 H (1.3-6.7) K/mm3 Absolute Nucleated RBC 0.000 (0.0-0.012) K/mm3 Band Neutrophils % Not Reportable Nucleated RBC % 0.0 (0.0-0.2) % Platelet Estimate Adequate (Adequate) Hypochromasia 1+ Anisocytosis 1+ Microcytosis 1+ (NORMAL) Schistocytes None seen Sodium 129 L 130 L (137-145) mmol/L Potassium 2.9 L 3.0 L (3.4-5.0) mmol/L Chloride 97 L 99 (98-107) mmol/L Carbon Dioxide 21 L 20 L (22-30) mmol/L Anion Gap 11 11 (4-12) mmol/L BUN 20 H 16 (7-17) mg/dL Creatinine 1.13 H 1.05 H (0.7-1.0) mg/dL Estim Creat Clear Calc 31 33 ml/min Estimated GFR 47 L 51 L (59 - ) Glucose 159 H 157 H (65-110) mg/dL Calcium 8.5 8.1 L (8.4-10.2) mg/dL Magnesium 1.5 L (1.6-2.3) mg/dL Total Bilirubin 2.0 H 1.9 H (0.2-1.3) mg/dL AST 73 H 67 H (14-36) U/L ALT 61 H 58 H (6-35) U/L Alkaline Phosphatase 369 H 406 H (38-126) U/L Total Creatine Kinase 33 (30-135) U/L Total Protein 6.7 6.6 (6.3-8.2) g/dL Albumin 3.3 L 3.2 L (3.5-5.1) g/dL Influenza A (RT-PCR) Negative (Negative) Influenza B (RT-PCR) Negative (Negative) RSV (RT-PCR) Negative (Negative) SARS-CoV-2 RNA (RT-PCR) Negative (Negative) Discharge Plan Discharge Clinical Impression: Acute viral syndrome, Elevated LFTs, Electrolyte abnormality, Dehydration Patient Disposition: Home Condition: Stable Instructions: Antibiotic Form, Viral Syndrome (ED) Additional Instructions: Follow-up with your primary care provider on a short-term basis, you did have some electrolyte derangements that did improve with fluid resuscitation and electrolytes. We gave the some pain medications which we can send you home with. Your liver function panel is mildly elevated which could be reactive to a virus. If you start developing any fevers, persistent right upper quadrant pain, nausea, vomiting or any other GI complaints please return to the emergency department otherwise follow-up with regular doctor outpatient. We will prescribe you pain medications and electrolyte supplements. Do not take anymore meloxicam as we are prescribing Toradol instead. Patient Language: Tristanian Prescriptions: New ketorolac 10 mg tablet 10 mg PO Q8H PRN (Reason: pain) 5 Days Qty: 20 0RF Rx Instructions: maximum total duration of 5 days from all oral, intranasal, or parenteral formulations potassium chloride 20 mEq packet 20 meq PO DAILY Qty: 30 0RF magnesium oxide 200 mg magnesium tablet 200 mg PO DAILY Qty: 30 0RF No Action trazodone 50 mg tablet 25 mg PO HS PRN (Reason: sleep) furosemide 20 mg tablet 20 mg PO DAILY duloxetine 60 mg capsule,delayed release(DR/EC) 60 mg PO DAILY meloxicam 7.5 mg tablet 7.5 mg PO DAILY Qty: 10 0RF lisinopril 20 mg tablet 20 mg PO DAILY 90 Days Qty: 90 3RF pantoprazole 40 mg tablet,delayed release (DR/EC) 40 mg PO QAM Qty: 90 3RF atorvastatin 10 mg tablet 10 mg PO DAILY Qty: 90 3RF Follow-up/Referrals: Ramses,MD Charles [Primary Care Provider] - Time of Disposition: 01:21
[2025-04-17] MEDS: MAGNESIUM SULF 2 GM/WATER 50ML 2 GM/50 ML BAG IVPB (21:25)
[2025-04-17] MEDS: SODIUM CHLORIDE 0.9% IV 1,000 ML 999 ML IV CONT ×2 (21:26→21:40)
[2025-04-17] MEDS: MORPHINE SULFATE (*CRX) 4 MG/ML INJ IV PUSH (21:30)
[2025-04-17] MEDS: KCL 20 MEQ/SW 100 ML 100 ML 50 MEQ IVPB (21:39)
[2025-04-17 21:53] LABS: Influenza A QL RT-PCR Negative (Negative); Influenza B QL RT-PCR Negative (Negative); RSV RNA, RT-PCR Negative (Negative); SARS-CoV-2 RNA PCR Negative (Negative)
--- NOTE | 2025-04-17 23:38 | PC.NURSE ---
VORB per EDP Tor[place], 15 mg of Toradol IV push for pt.
[2025-04-17] MEDS: KETOROLAC 15 MG/ML VIAL (*BKC) IV PUSH (23:48)
[2025-04-18 00:06] LABS: Alanine Aminotransferase 58 U/L (6-35); Albumin Level 3.2 g/dL (3.5-5.1); Alkaline Phosphatase 406 U/L (38-126); Anion Gap 11 mmol/L (4-12); Aspartate Amino Transferase 67 U/L (14-36); Bilirubin,Total 1.9 mg/dL (0.2-1.3); Blood Urea Nitrogen 16 mg/dL (7-17); Calcium 8.1 mg/dL (8.4-10.2); Carbon Dioxide 20 mmol/L (22-30); Chloride 99 mmol/L (98-107); Estimated CRCL calculation 33 ml/min; Estimated Glomerular Filt Rate 51; Glucose 157 mg/dL (65-110); Potassium 3.0 mmol/L (3.4-5.0); Sodium 130 mmol/L (137-145); Total Protein 6.6 g/dL (6.3-8.2)
[2025-04-18 00:30] VITALS: PULSE 83; RESP 20; O2SAT 100
[2025-04-18 01:44] VITALS: BP 119/40; PULSE 74; RESP 18; TEMP 37.2; O2SAT 99
== END 2025-04-18 01:32 | disposition home or self-care (01) ==
PROVIDERS: Emergency Provider Student in an Organized Health Care Education/Training Program; PCP Family Medicine
DX: B34.9 Viral infection, unspecified (principal); E86.0 Dehydration; E87.8 Other disorders of electrolyte and fluid balance, not elsewhere classified; R74.01 Elevation of levels of liver transaminase levels; Z20.822 Contact with and (suspected) exposure to COVID-19; I12.9 Hypertensive chronic kidney disease with stage 1 through stage 4 chronic kidney disease, or unspecified chronic kidney disease; N18.32 Chronic kidney disease, stage 3b; E78.5 Hyperlipidemia, unspecified; K22.70 Barrett's esophagus without dysplasia; M81.0 Age-related osteoporosis without current pathological fracture; M85.80 Other specified disorders of bone density and structure, unspecified site; F41.8 Other specified anxiety disorders; Z85.41 Personal history of malignant neoplasm of cervix uteri; Z86.16 Personal history of COVID-19; Z90.710 Acquired absence of both cervix and uterus; Z79.899 Other long term (current) drug therapy
CPT/HCPCS: 36415; 80053; 82550; 83735; 85025; 87637; 96365; 96366; 96368; 96375; 99284; J1885; J2270; J3475; J3480; J7030

== ENCOUNTER 2025-05-19 13:06 | Emergency (ER) | payer MEDICARE, SELFPAY ==
--- NOTE | 2025-05-19 13:13 | ED.FEMALEGU ---
HPI - Female Genitourinary General Chief complaint: Urogenital-Female Stated complaint: UTI SYMPTOMS Time Seen by Provider: 05/19/25 13:14 Source: patient Mode of arrival: ambulatory Limitations: no limitations History of Present Illness HPI Narrative: Angela is a 74-year-old female patient presenting to the clinic today with complaints of possible UTI. She reports she is having bladder pressure urinary urgency, urinary frequency, and low urine output. Is concerned that she has UTI. Has been taking azo for her symptoms. Last dose was yesterday. Denies any fevers, chills, body aches, or back pain. Related Data Home Medications ?Medication ?Instructions ?Recorded ?Confirmed ?Last Taken ?Type duloxetine 60 mg capsule,delayed 60 mg PO DAILY 10/14/24 05/19/25 Unknown History release furosemide 20 mg tablet 20 mg PO DAILY 10/14/24 05/19/25 Unknown History trazodone 50 mg tablet 25 mg PO HS PRN sleep 10/14/24 05/19/25 Unknown History cyanocobalamin (vitamin B-12) PO 05/19/25 Unknown History ferrous sulfate 325 mg (65 mg 325 mg PO DAILY 05/19/25 05/19/25 Unknown History iron) tablet (iron) Allergies Allergy/AdvReac Type Severity Reaction Status Date / Time grass pollen Allergy Unknown Itching Verified 05/19/25 13:11 poison fabrizio extract Allergy Unknown rash Verified 05/19/25 13:11 Maple Tree Allergy Unknown Other Uncoded 05/19/25 13:11 Review of Systems Review of Systems: Pertinent positives per HPI. Patient denies any fever, chills, rash, headache, visual changes, dizziness, cough, runny nose, sore throat, shortness of breath, chest pain, palpitations, nausea, vomiting, diarrhea, constipation PMFSH Past Medical History Medical History Arthralgia of multiple joints Right shoulder pain Left shoulder pain Low back pain radiating to both legs Cervical radiculitis Cervicalgia COVID-19 08/16/22 Major depressive disorder, single episode, mild Chronic kidney disease (CKD) stage G3b/A1, moderately decreased glomerular filtration rate (GFR) between 30-44 mL/min/1.73 square meter and albuminuria creatinine ratio less than 30 mg/g Major depression Left knee pain Right knee pain Urinary urgency BMI 26.0-26.9,adult Post-nasal drip Chronic kidney disease, stage 3 unspecified Serum potassium elevated Adult BMI 25.0-25.9 kg/sq m Breast cancer screening Osteopenia Seasonal allergies Depression with anxiety Vitamin D deficiency Anemia History of cervical cancer Fatigue Anxiety Andrade esophagus Hyperlipidemia Rotator cuff tear, right Fracture of radius, distal, with ulna, right, closed Cervical cancer History of wrist fracture Osteoporosis Hypertension Supraspinatus tendon tear Surgical History Surgical History History of surgery on left wrist (~2007) H/O: hysterectomy Social History Social History Smoking packs per day: 0.5 Smoking cigarettes per day: 10.0 Years smoked: 20 Smoking pack-years: 10.00 Smoking status: Former smoker Tobacco type: cigarettes Second hand tobacco smoke exposure: No Smoking end date: 09/30/88 Alcohol intake: current Alcohol use details: occasional glass of wine Substance use: never Substance use type: does not use Do You Feel Safe in your Home?: Yes Lack of Transportation: No Lack of Food: Never True Current Housing: I Have Housing Concerned About Future Housing: No Difficulty Paying Gas/Electric Bills: No Difficulty Paying for Meds: No Currently Unemployed: No Education: Trade/Vocational Certificate Difficulty w/ Childcare or Family Care: No Living arrangements: alone Gender identity (if verbalized by the patient): Female Spiritual care concerns: No Comments At the time of my signature, I reviewed and agree with the nursing past medical, surgical, social, and family history. There is no relevant family history pertinent to the patient complaint. Exam Narrative: General: Well-developed, well nourished, in no apparent distress. Head: Normocephalic, atraumatic. Cardio: Regular rate and rhythm, s1 and s2 normal, no murmur appreciated. Resp: Clear to auscultation bilaterally, no rhonchi, rales, wheezing or rubs. Abdomen: Soft, pliable, bowel sounds present in all quadrants, suprapubic tender to palpation, no organomegly, no CVAT tenderness. Course Course Emergency Course: Portions of this record may have been created with voice recognition software. Level of Care: Express Care Visit Vital Signs Vital signs: Vital Signs Temperature 36.6 C 05/19/25 13:15 Pulse Rate 66 05/19/25 13:15 Respiratory Rate 16 05/19/25 13:15 Blood Pressure 162/91 H 05/19/25 13:15 Pulse Oximetry 100 05/19/25 13:15 Temperature 36.6 C 05/19/25 13:15 Pulse Rate 66 05/19/25 13:15 Respiratory Rate 16 05/19/25 13:15 Blood Pressure 162/91 H 05/19/25 13:15 Pulse Oximetry 100 05/19/25 13:15 Vital signs reviewed MDM - Female Genitourinary MDM Narrative Medical decision making narrative: At the time of visit patient is resting comfortably on the exam table. Patient appears to be nontoxic. Complaints of possible UTI. She reports she is having bladder pressure urinary urgency, urinary frequency, and low urine output. Is concerned that she has UTI. Has been taking azo for her symptoms. Last dose was yesterday. Denies any fevers, chills, body aches, or back pain. On exam patient has suprapubic tenderness to palpation, no CVAT tenderness. Labs: Urine dip positive for leukocytes, nitrates, trace of protein, and blood. Urine culture was sent to the lab. Plan: I suspect patient has UTI. Prescription for cephalexin was sent to the pharmacy. Supportive measures were discussed with the patient and they voiced understanding discharge instructions and agrees to treatment plan. Return precautions reviewed Differential Diagnosis Differential diagnosis: Likely urinary tract infection and cystitis Discharge Plan Discharge Clinical Impression: Urinary tract infection Qualifiers: Urinary tract infection type: acute cystitis Hematuria presence: with hematuria Qualified Code(s): N30.01 - Acute cystitis with hematuria Patient Disposition: Home Condition: Stable Instructions: Antibiotic Form, Urinary Tract Infection in Older Adults (ED) Additional Instructions: Urinalysis shows 1+ leukocytes, nitrates, blood, and protein. We will send urine for culture. Increase fluids and stay well hydrated Wipe front to back. May use wet wipes. Avoid tub baths If sexually active- pee before and after intercourse. Wear cotton panties Avoid tight clothing up against the genitals Follow up with your PCP in 1 week if symptoms persist. Patient Language: [place] Islander Prescriptions: New cephalexin 500 mg capsule 500 mg PO Q12H 7 Days Qty: 14 0RF No Action trazodone 50 mg tablet 25 mg PO HS PRN (Reason: sleep) furosemide 20 mg tablet 20 mg PO DAILY duloxetine 60 mg capsule,delayed release(DR/EC) 60 mg PO DAILY meloxicam 7.5 mg tablet 7.5 mg PO DAILY Qty: 10 0RF ferrous sulfate [iron] 325 mg (65 mg iron) tablet 325 mg PO DAILY cyanocobalamin (vitamin B-12) PO ketorolac 10 mg tablet 10 mg PO Q8H PRN (Reason: pain) 5 Days Qty: 20 0RF Rx Instructions: maximum total duration of 5 days from all oral, intranasal, or parenteral formulations potassium chloride 20 mEq packet 20 meq PO DAILY Qty: 30 0RF magnesium oxide 200 mg magnesium tablet 200 mg PO DAILY Qty: 30 0RF lisinopril 20 mg tablet 20 mg PO DAILY 90 Days Qty: 90 3RF pantoprazole 40 mg tablet,delayed release (DR/EC) 40 mg PO QAM Qty: 90 3RF atorvastatin 10 mg tablet 10 mg PO DAILY Qty: 90 3RF Follow-up/Referrals: Ramses,MD Charles [Primary Care Provider, Unknown] Time of Disposition: 13:25 Quality NIHSS Nursing Documentation ED NIHSS nursing documentation: reviewed/agree
[2025-05-19 13:15] VITALS: BP 162/91; PULSE 66; RESP 16; TEMP 36.6; O2SAT 100
[2025-05-19 13:32] LABS: EDUAAPPEAR Cloudy; EDUABILI Negative (Negative); EDUABLOOD 2+ (Negative); EDUACOLOR1 Dark; EDUAGLUCOSE Negative (Negative); EDUAKETONE Negative (Negative); EDUALEUKO 1+ (Negative); EDUANITRATE Positive (Negative); EDUAPH 5.5; EDUAPROTEIN Trace (Negative); EDUASPGRAVITY 1.010; EDUAUROBILI 0.2
== END 2025-05-19 13:30 | disposition home or self-care (01) ==
PROVIDERS: Emergency Provider Nurse Practitioner Family; PCP Family Medicine
DX: N30.01 Acute cystitis with hematuria (principal); Z87.891 Personal history of nicotine dependence; I12.9 Hypertensive chronic kidney disease with stage 1 through stage 4 chronic kidney disease, or unspecified chronic kidney disease; N18.32 Chronic kidney disease, stage 3b; M85.80 Other specified disorders of bone density and structure, unspecified site; K22.70 Barrett's esophagus without dysplasia; E78.5 Hyperlipidemia, unspecified; M81.0 Age-related osteoporosis without current pathological fracture; Z85.41 Personal history of malignant neoplasm of cervix uteri; D64.9 Anemia, unspecified; F32.0 Major depressive disorder, single episode, mild
CPT/HCPCS: 81003; 87086; 99213; G0463

== ENCOUNTER 2025-07-02 17:42 | Emergency (ER) | payer MEDICARE, SELFPAY ==
[2025-07-02] VITALS (17 sets, daily range): BP systolic 133–177; BP diastolic 61–144; PULSE 60–77; RESP 12–19; TEMP 36.4–36.6; O2SAT 92–100
--- NOTE | ~2025-07-02 | CT_ITS ---
EXAMINATION: CT abdomen pelvis w con DATE: 07/02/2025 21:18 INDICATION: Vaginal bleeding. TECHNIQUE: Computed tomography (CT) of the abdomen and pelvis was performed with 100 mL Omnipaque 350 intravenous contrast. Automated exposure control and iterative reconstruction technique were employed. The dose-length product was 218.58 mGy-cm. COMPARISON: CT 01/10/2023 FINDINGS: The visualized portions of the lung bases demonstrate mild atelectasis. No pleural effusion. The heart size is normal. No pericardial effusion. There is a small sliding hiatal hernia. There are cysts in the liver measuring up to 3.4 cm. Calcifications in the spleen are consistent with old gra nulomatous disease. The pancreas and adrenal glands are normal. There is cortical thinning of the kidneys. There are cysts in the kidneys measuring up to 3.1 cm on the right. There is diverticulosis of the colon without evidence of diverticulitis. The appendix is normal. There are no pathologically enlarged lymph nodes. There is trace pelvic ascites. There is a 6 mm stone in the bladder at the right ureterovesicular junction. There is edema in low anterior abdominal wall. There is lumbar dextroscoliosis and severe spondylosis. IMPRESSION: 1. 6 mm stone in the bladder at the right ureterovesicular junction. No hydronephrosis. 2. Edema in low anterior abdominal wall. Reviewed, dictated and finalized at location E. IMPRESSION: 1. 6 mm stone in the bladder at the right ureterovesicular junction. No hydrone phrosis. 2. Edema in low anterior abdominal wall.
--- OUTSIDE RECORDS SUMMARY | 2025-07-02 17:45 | XMS_ITS | Data Portability ---
Author Organization [facility], Telehealth (patients home) Address [address] [place] [address] Care Team Providers Care Manager Strategic Development Name Role Phone ARAM PEARCE Primary Care Provider Assessment Encounter Date Assessment Date Assessment LastModified by Organization Details LastModified Time 05/25/2025 05/25/2025 Labs and Imaging Urinalysis (May 25, 2025) Urinalysis was performed during the visit. Results showed normal findings with some ketones present, likely due to patient not having eaten that day. Previous Blood Work (approximately 2 weeks ago) Blood work was performed by primary care physician Dr. Pearce. Results unknown as patient has not received them yet. Visit Summary A 74-year-old female with a history of cancer, recent UTI, and a summer episode of severe pain with electrolyte abnormalities presented for evaluation of ongoing UTI symptoms, fatigue, and gynecological concerns. She completed antibiotics for UTI yesterday but still has mild pressure symptoms. She also reports fatigue and not feeling like herself since a summer episode that required ER treatment and steroids. She previously took Premarin for vaginal wall thinning but discontinued it about a year ago. Physical examination revealed normal heart sounds. Urinalysis performed today showed normal results with some ketones present. She has a mild depression score of 8, related to frustration with age-related limitations. She was advised that she does not need Pap smears at her age and that restarting hormones after being off them for a year. She was counseled to increase fluid intake, eat regularly, and follow up with her primary care physician regarding her recent blood work results. Standardized Scales: PHQ9=8 [email or web address] Not available 05/25/2025 17:26:58 Plan of Treatment Reminders Order Date Submit Date Provider Last Modified By Organization Details Last Modified Time Details Appointments None recorded. Lab urinalysis , dipstick 2024 025 [email or web address] [id number] Main Office, [address], [place], [address], 15:43:45 Referral None recorded. Procedures None recorded. Surgeries None recorded. Imaging None recorded. Medication Orders None recorded. Patient TargetsNo targets recorded. Patient Instructions Encounter Date Encounter Id Patient Instructions Last Modified By Organization Details Last Modified Time 05/25/2025 [id number] Educated patient that Pap smears are not recommended after age 65 pt states that her mammogram is up to date, and next one is already ordered colonoscopy up to date and followed by her pcp bone density up to date and followed by her pcp Advised against restarting hormone therapy (Premarin) after being off for a year No gynecological examination or treatment needed at this time Reassured patient that her primary care physician is appropriately managing her preventive care [email or web address] Not available 05/25/2025 17:27:41 Reason for Referral None Reported. Results Created Date Observation Date Name Description Value Unit Range Abnormal Flag Note LastModifiedBy Organization Detail LastModifiedTime 05/25/2005/25/2025 urina lysis , dipst ick Leukocytes Negati ve Not Available Main Office [address], [place], [address], 05/25/2025 15:42:25 05/25/2005/25/2025 urina lysis , dipst ick Nitrite negati ve Not Available Main Office [address], [place], [address], 05/25/2025 15:42:25 05/25/2005/25/2025 urina lysis , dipst ick Protein Negati ve Not Available Main Office [address], [place], [address], 05/25/2025 15:42:25 05/25/2005/25/2025 urina lysis , dipst ick pH 5.0 Not Available Main Offic e [address], [place], [address], 05/25/2025 15:42:25 05/25/2005/25/2025 urina lysis , dipst ick Specific [place] 1.020 Not Available Main O ffice [address], [place], [address], 05/25/2025 15:42:25 05/25/20 25 05/25/2025 urina lysis , dipst ick Ketone Small Not Available Main Offic e [address], [place], [address], 05/25/2025 15:42:25 05/25/2005/25/2025 urina lysis , dipst ick Bilirubin Negati ve Not Available Main Office [address], [place], [address], 05/25/2025 15:42:25 05/25/2005/25/2025 urina lysis , dipst ick Glucose Negati ve Not Available Main Office [address], [place], [address], 05/25/2025 15:42:25 05/25/2005/25/2025 urina lysis , dipst ick Appearance Clear Not Available Main Of fice [address], [place], [address], 05/25/2025 15:42:25 05/25/2005/25/2025 urina lysis , dipst ick Color Yellow Not Available Main Offic e [address], [place], [address], 05/25/2025 15:42:25 Result Notes None recorded. Problems Name Problem SNOMED Code Status Onset Date Resolution Date Notes Provider Name and Address Organization Details Recorded Time Hypertensive disorder 88386007 [facility] 2024 [facility] 15:04:34 Hypercholest erolemia 63553195 Active 2024 Akua Green [facility] 15:04:58 Urinary tract infection suspected 068534223 Active 2024 Lissy Sr CNM, [facility] [address], [place], [address], [facility] 17:13:28 Fatigue 47595710 Active 2024 Lissy Sr CNM, [facility] [address], [place], [address], [facility] 17:22:37 Recurrent major depressive episodes, mild 973515674 Active 2024 Lissy Sr CNM, [facility] [address], [place], [address], [facility] 17:25:09 Problem Notes None recorded. Procedures Surgical History Date Name Laterality Status Provider Name and Address Organization Details Recorded Time 09/30/19 18 Breast Biopsy completed Akua Green [facility] 05/25/2025 15:19:42 09/30/19 05 operative procedure on upper extremity completed Akua Green [facility] 05/25/2025 15:21:28 09/30/19 05 operative procedure on upper extremity completed Akua Green [facility] 05/25/2025 15:21:48 09/30/19 02 Total Hysterectomy completed Akuamarcela Green [facility] 05/25/2025 15:11:49 09/30/18 75 extraction of wisdom tooth completed Akuamarcela Green [facility] 05/25/2025 15:20:40 09/30/18 60 Tonsillectomy completed Akuamarcela Green [facility] 05/25/2025 15:19:23 Imaging Results None recorded. Procedure Notes None recorded. Medical Equipment None Reported. Allergies No known drug allergies Medications Name Sig Start Date Stop Date Status Note LastModified by Organization Details LastModified Time lisinopril 20 mg tablet Take 1 tablet every day by oral route. active Not Available Not Available No t Available vitamin B complex capsule Take by oral route. active Not Available Not Available No t Available atorvastatin active Not Available Not Available Not Available iron active Not Available Not Availa ble Not Available furosemide active Not Available Not Av ailable Not Available trazodone active prn sleep Not Available Not Available Not Available pantoprazole active Not Available Not Available Not Available Premarin 05/25 completed Not Available Not Available Not Available duloxetine active Not Available Not Av ailable Not Available Vitals Date Recorded Body height Body mass index (BMI) Body weight Heart rate Systolic And Diastolic Provider Name and Address Organization Details Last Updated DateTime 05/25/2025 153.67 cm 25.6 kg/m2 43577.22 g 78 /min 136/84 mm[Hg] Akua Green [facility] 14:59:56 Social History Question Answer Notes LastModified by Organizat ion Details LastModified Time Tobacco Smoking Status Former Smoker Akua Green [facility] 05/25/2025 15:11:28 What Is Your Level Of Caffeine Consumption? Moderate Information not available 05/25/2025 Have You Ever Been Counseled For Unhealthy Alcohol Use? No Information not available 05/25/2025 Sex: Unknown Functional Status Question Answer Note LastModified by Organizat ion Details LastModified Time Do you use any illicit or recreational drugs? No [email or web address] Information not available 05/25/2025 Do you or have you ever used any other forms of tobacco or nicotine? No [email or web address] Information not available 05/25/2025 What is your level of alcohol consumption? Occasional Information not available 05/25/2025 Mental Status Question Answer Note LastModified by Organization D etails LastModified Time Do you feel stressed (tense, restless, nervous, or anxious, or unable to sleep at night)? [id number] [email or web address] Information not available 05/25/2025 Family History Nothing Reported Notes:pt was adopted Medical History Condition Response Allergies (Food, seasonal, environmental ) Y Other N Thyroid Disease N Blood Transfusion N Breast Cancer N Drug/Latex Allergies/Reactions N Lung Disease N COPD N Depression Y Dermatologic Disorders N Defects or Inherited Disease N Developmental or Behavioral Disorders N Breast Problem N Gestational Diabetes N Hematologic disorders N Anesthesia Complications N History of STI N Deep Vein Thrombosis N Polycystic ovary syndrome N Anxiety Disorder Y Autoimmune disease N Vision or Eye Problems N Arthritis N Auditory Hallucinations N Polyps N Infertility N History of abnormal pap N Acid Reflux (GERD) N Cancer Y Varicosities N Stroke N Neurologic/Epilepsy N Endometriosis N High Cholesterol Y Liver Disease N Psychiatric/Mental Health Condition N Schizophrenia N Fibromyalgia N Headaches N Kidney Disease N Heart Problems N Hospitalizations N Learning Disorder N Thyroid Problems N Kidney or Bladder Problems N GI Problems N Acne N ADD/ADHD N Eating Disorder N Anemia Y Brain Injury N Art (IVF or FET) N Psychiatric Illness Y Ovarian Cancer N Diabetes N Pulmonary (TB, Asthma) N Hepatitis/Liver Disease N Visual Hallucinations N Seizures/Epilepsy N Amnesia N AIDS/HIV N Eczema N Abuse/Domestic Violence N Asthma N Trauma/Violence N GERD/Reflux Y Depression/ depression N Heart Disease N Tourette Syndrome N Pre-Eclampsia N Hypertension Y Osteoporosis N Thrombophilias N Gynecological History Statement/Question Response Abnormal Pap Date of LMP 09/30/2001 STIs/STDs N Date of Last Pap Smear Current Control Method Hysterectom y Most Recent Mammogram LMP Approximate Obstetrics History GPAL:G 3 P 3 0 0 3 Type Value Full Term 3 Living 3 Total 3 Past Encounters Encounter ID Performer Location Encounter Start Date Encounter Closed Date Diagnosis/Indication Diagnosis SNOMED-CT Code Diagnosis ICD10 Code Diagnosis IMO Codes Diagnosis Note [id number] Lissy Sr CNM, [facility]- Main Office [address] [place] [address] 05/25/2025 14:48:21 05/26/2025 06:28:29 History of urinary tract infection 9342295999 107 Z87.440 [id number] Angela completed antibiotic s last night and reports improvemen t but still has some mild pressure symptoms. Urinalysis performed today was normal with some ketones present. I discussed the importance of adequate hydration to help flush the urinary system and prevent recurrent infections .denies recent recurrent UTI's- Denies Uti's being more frequent since stopping vaginal estrogen creamsUrin alysis performed today showed normal resultsAdv ised to increase fluid intake, aiming for at least 64 oz of water dailyEncou raged to continue monitoring symptoms and follow up with primary care if symptoms worsenNo additional antibiotic s needed at this time Fatigue 65547500 R53.83 [id number] Angela reports ongoing fatigue since a summer episode of severe pain with electrolyt e abnormalit ies. Recent blood work was done by her primary care physician but results are unknown to the patient. I discussed the importance of following up with her primary care physician to review these results.I would order further blood work but nor ordered due to labs recently orderedAdv ised to contact primary care physician to review recent blood work resultsRec ommended regular meals to maintain energy levels (noted ketones in urine from not eating today)No additional labs ordered to avoid duplicatio n of recent testingEnc ouraged to follow up with primary care physician at scheduled appointmen t on June 15, 2025 Recurrent major depressive episodes, mild 295424498 F33.0 [id number] Angela reports ongoing fatigue since a summer episode of severe pain with electrolyt e abnormalit ies. Recent blood work was done by her primary care physician but results are unknown to the patient. I discussed the importance of following up with her primary care physician to review these results.Ad vised to contact primary care physician to review recent blood work resultsRec ommended regular meals to maintain energy levels (noted ketones in urine from not eating today)No additional labs ordered to avoid duplicatio n of recent testingEnc ouraged to follow up with primary care physician at scheduled appointmen t on June 15, 2025 Health Concerns Section Related Observation LastModified by Organization Detai ls LastModified Time None Recorded Concern Status LastModified by Organization Details LastModified Time None Recorded Advance Directives Directive None Recorded Payers Insurance Date Sequence Insurance Name Policy Number Policy Walton Covered Member ID Walton Member ID Guarantor Name 05/25/2025 1 [employer] (MEDICARE REPLACEMENT/A DVANTAGE - HMO) Angela Mcmillan [id number] Angela Mcmillan Notes Date Note Type Note Provider Name and Address Organization Details Recorded Time 05/25/2025 text/html History of present illness Angela Mcmillan is a 74-year-old female who presents today for an initial visit. She reports having recently completed treatment for a urinary tract infection (UTI) but is concerned that she may still have symptoms. She states she finished her antibiotics last night but still feels a little bit of pressure, though not like it was. She explains that she initially tried to see her primary care physician, Dr. Pearce, for the UTI but he was on vacation, so he called in a prescription after receiving her urine culture results. She also describes an episode this summer that she believes was heat-related. 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 Following this episode, she reports being bedridden for almost three weeks. She went to urgent care but states they didn't do anything, then went to the emergency room where she received a morphine drip. She was told her potassium, magnesium, and something else were very low. After her primary care physician returned from vacation, she received a steroid shot and a steroid pack, which helped her feel better. She reports general fatigue and not feeling like she did before her spell this summer. She states, I just don't feel giovanny not like I did before, and I don't know what's causing that. She wonders if it might be age-related or possibly related to hormones. She mentions that approximately two years ago, she experienced vaginal spotting and saw Dr. Rose, who told her that her wall was thin and prescribed Premarin, which stopped the spotting. She reports she has not taken Premarin for about a year. She expresses frustration about not being able to keep up with activities she used to do easily, such as yard work and cleaning, due to back issues. She states, I feel like I can't keep up with stuff like I used to, and I don't like depending on my family and kids to help. She reports her depression screening score was 8, indicating mild depression. When asked about this, she states she's doing fine but feels depressed about having a harder time keeping up with tasks she used to manage easily. Past Medical History Illness, Injuries, Operations, and Treatment: History of cancer (type not specified) Recent UTI treated with antibiotics Recent episode of severe body pain with electrolyte abnormalities (low potassium, magnesium) Back issues (details not specified) Bone density issues (my bones are a mess) Previous Psychiatric or Mental Health Treatment: Not provided Previous Psychiatric or Mental Health Hospitalization: Not provided Medication History 1. Premarin: Dosage: Unknown Duration: Used until approximately one year ago Effectiveness: Effective for treating vaginal wall thinning and stopping spotting Reason for Discontinuation: Unknown 2. Antibiotics for UTI: Dosage: Unknown Duration: Recently completed course (finished last night) Effectiveness: Partially effective, still experiencing some pressure Reason for Discontinuation: Completed prescribed course Lissy Sr CNM, [facility]NP- [address], [place], [address], [facility] 05/25/2025 17:31:36 OBGyn Episode Ob Episode Information Episode Created Date Number of Fetuses Patient Bloodtype Patient rh Status Prepregnancy Weight lbs Domestic Partner Domestic Partner Phone Father Name Feed Management Advisor Status 05/25/20 25 1 CLOSED Fetus Data First Name Last Name Admitted to NICU Weight (g) Sex Living Outcome Pediatric Complications Fetus ID Race Codes Race Delivery Type F Full Term 642 Eder Calculation Initial Eder Date Initial Exam Date Initial Exam Provider Initial Ultrasound Date Last Menstrual Period Date Ultra Sound Weeks Gestation 0 Eighteen To Twenty Week Eder Update Ultra Sound Date Fundal Height At Umbil Quickening Date Ultra Sound Latest Weeks Gestation Final Eder Confirmed By Final Eder Confirmed Date Final Eder Date Ultra Sound Latest Days Gestation 0 0 Menstrual History Last Menstrual Date Menses Monthly On Bcp Conception Prior Menses Frequency Hcg Plus Date Menarche Onset Age Delivery Information Delivery Date Delivery Type Labor Anesthesia Weeks Gestation Incision Type Labor Labor Length Hrs Delivered By Post Complications Tubal Sterilization Discharge Date Comments 2 40 vaginal delivery Discharge Information Feeding Method Contraceptive Method Maternal HG B and HCT Levels Ob Episode Information Episode Created Date Number of Fetuses Patient Bloodtype Patient rh Status Prepregnancy Weight lbs Domestic Partner Domestic Partner Phone Father Name Feed Management Advisor Status 05/25/20 25 1 CLOSED Fetus Data First Name Last Name Admitted to NICU Weight (g) Sex Living Outcome Pediatric Complications Fetus ID Race Codes Race Delivery Type F Full Term 643 Eder Calculation Initial Eder Date Initial Exam Date Initial Exam Provider Initial Ultrasound Date Last Menstrual Period Date Ultra Sound Weeks Gestation 0 Eighteen To Twenty Week Eder Update Ultra Sound Date Fundal Height At Umbil Quickening Date Ultra Sound Latest Weeks Gestation Final Eder Confirmed By Final Eder Confirmed Date Final Eder Date Ultra Sound Latest Days Gestation 0 0 Menstrual History Last Menstrual Date Menses Monthly On Bcp Conception Prior Menses Frequency Hcg Plus Date Menarche Onset Age Delivery Information Delivery Date Delivery Type Labor Anesthesia Weeks Gestation Incision Type Labor Labor Length Hrs Delivered By Post Complications Tubal Sterilization Discharge Date Comments 7 39 vaginal delivery Discharge Information Feeding Method Contraceptive Method Maternal HG B and HCT Levels Ob Episode Information Episode Created Date Number of Fetuses Patient Bloodtype Patient rh Status Prepregnancy Weight lbs Domestic Partner Domestic Partner Phone Father Name Feed Management Advisor Status 05/25/20 25 1 CLOSED Fetus Data First Name Last Name Admitted to NICU Weight (g) Sex Living Outcome Pediatric Complications Fetus ID Race Codes Race Delivery Type F Full Term 641 Eder Calculation Initial Eder Date Initial Exam Date Initial Exam Provider Initial Ultrasound Date Last Menstrual Period Date Ultra Sound Weeks Gestation 0 Eighteen To Twenty Week Eder Update Ultra Sound Date Fundal Height At Umbil Quickening Date Ultra Sound Latest Weeks Gestation Final Eder Confirmed By Final Eder Confirmed Date Final Eder Date Ultra Sound Latest Days Gestation 0 0 Menstrual History Last Menstrual Date Menses Monthly On Bcp Conception Prior Menses Frequency Hcg Plus Date Menarche Onset Age Delivery Information Delivery Date Delivery Type Labor Anesthesia Weeks Gestation Incision Type Labor Labor Length Hrs Delivered By Post Complications Tubal Sterilization Discharge Date Comments 9 40 vaginal delivery Discharge Information Feeding Method Contraceptive Method Maternal HG B and HCT Levels
--- OUTSIDE RECORDS SUMMARY | 2025-07-02 17:45 | XMS_ITS | Encounter Summary ---
Author Organization [facility] Healthcare Address [address] [place] [address] Care Team Providers Care Roustabout Supervisor Name Role Phone Orville Bardales MD, Bogdan Duran Primary Care Provider Maryanne Cardoza NP Primary Care Provider [phone] Encounter Details Date Type Department Care Team ([facility] Contact Info) Description 10/31/2020 Telephone 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
--- OUTSIDE RECORDS SUMMARY | 2025-07-02 17:45 | XMS_ITS | Encounter Summary ---
Author Organization [facility] Address [facility] [place] [address] Care Team Providers Care Contracting Manager Name Role Phone Bogdan Jacinto MD Primary Care Provider Unava ilable Encounter Details Date Type Department Care Team (Latest Contact Info) Description 08/05/2018 Abstract [facility] , Joey Vega MD Social [...] on filedocumented in this encounter Care Teams Contracting Manager Relationship Specialty Start Date End Date Bogdan Jacinto MD PCP - General INTERNAL MEDICINE 04/08/19 documented as of this encounter
--- OUTSIDE RECORDS SUMMARY | 2025-07-02 17:45 | XMS_ITS | Clinical Summary ---
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 Views obtained: bilateral craniocaudal and bilateral mediolateral oblique. Computer Aided Detection was performed. Mammogram Findings: The present examination has been compared to prior imaging studies performed at [facility] on 03/18/2017, 03/19/2018 and 04/07/2019. There [...] compared to prior imaging studies performed at [facility] on 03/18/2017, 03/19/2018 and 04/07/2019. There [...] to Health Maintenance Insurance [employer] HMO [facility] [place] WE[employer] MEDICARE HMO Advance Directives For more information, please contact: [phone] Documents on File Type Date Recorded Patient Tape Rules Printing Machine Operator Expl anation ADVANCE DIRECTIVE 11/01/2020 12:31 PM Power of Tube Puller-Medical * Full Code (Latest Code Status on File) Date Activated Date Inactivated Comments 01/11/2023 3:08 PM 01/13/2023 11:21 PM Care Teams Market Development Specialist Relationship Specialty Start Date End Date Maryanne Cardoza NP PCP - General Family Medicine 01/11/23
--- OUTSIDE RECORDS SUMMARY | 2025-07-02 17:45 | XMS_ITS | Clinical Summary ---
Author Organization [facility] Address [address] [place] [address] Care Team Providers Care Fancy Sewer Name Role Phone Bogdan Jacinto MD Primary [...] COVID-19 Vaccine ( - 2023-2 5 season) 2025 Dexa Scan (General) Completed 07/25/2020 Meningococcal B [...] FINDINGS AND IMPRESSION: Examination performed on a [employer] Discovery SL .: LUMBAR SPINE L2-L4: 1. [...] FINDINGS AND IMPRESSION: Examination performed on a [employer] Discovery SL .: LUMBAR SPINE L2-L4: 1. [...] to Health Maintenance Insurance [employer] Care Teams Fancy Sewer Relationship Specialty Start Date End Date Bogdan Jacinto MD PCP - General INTERNAL MEDICINE 04/08/19
--- NOTE | 2025-07-02 19:37 | ED.FEMALEGU ---
HPI - Female Genitourinary General Chief complaint: Vaginal Bleeding Stated complaint: VAG BLEEDING, HYST EARLY Time Seen by Provider: 07/02/25 19:36 Source: patient Mode of arrival: ambulatory Limitations: no limitations History of Present Illness HPI Narrative: female presents with vaginal bleeding starting 4 days ago. She had a hysterectomy in either 2001 in [address] Werner as ObGyn 3-4 years ago but reports issues with insurance and told no further PAP smears needed. When she had been seen at OB [facility] in she had been placed on prone for thin vaginal wall and spotting but she ran out of that medication. She reports that the bleeding seems steady, like a menstrual period. Her daughter who lives with her is currently having her menstrual cycle. Patient reports that she feels approximately 1 maxi pad per day though it is not saturated. She is not on anticoagulation. She had been on the steroid pills a few months ago and received steroid injection in the hip but otherwise no recent or long-term steroid use. She denies any significant NSAID use. No abdominal or pelvic pain. Related Data Home Medications ?Medication ?Instructions ?Recorded ?Confirmed ?Last Taken ?Type duloxetine 60 mg capsule,delayed 60 mg PO DAILY 10/14/24 05/19/25 Unknown History release furosemide 20 mg tablet 20 mg PO DAILY 10/14/24 05/19/25 Unknown History trazodone 50 mg tablet 25 mg PO HS PRN sleep 10/14/24 05/19/25 Unknown History cyanocobalamin (vitamin B-12) PO 05/19/25 Unknown History ferrous sulfate 325 mg (65 mg 325 mg PO DAILY 05/19/25 05/19/25 Unknown History iron) tablet (iron) Allergies Allergy/AdvReac Type Severity Reaction Status Date / Time grass pollen Allergy Unknown Itching Verified 07/02/25 17:43 poison fabrizio extract Allergy Unknown rash Verified 07/02/25 17:43 [place] Allergy Unknown Other Uncoded 05/19/25 13:11 [facility] Past Medical History Medical History Arthralgia of multiple joints Right shoulder pain Left shoulder pain Low back pain radiating to both legs Cervical radiculitis Cervicalgia COVID-19 08/16/22 Major depressive disorder, single episode, mild Chronic kidney disease (CKD) stage G3b/A1, moderately decreased glomerular filtration rate (GFR) between 30-44 mL/min/1.73 square meter and albuminuria creatinine ratio less than 30 mg/g Major depression Left knee pain Right knee pain Urinary urgency BMI 26.0-26.9,adult Post-nasal drip Chronic kidney disease, stage 3 unspecified Serum potassium elevated Adult BMI 25.0-25.9 kg/sq m Breast cancer screening Osteopenia Seasonal allergies Depression with anxiety Vitamin D deficiency Anemia History of cervical cancer Fatigue Anxiety Andrade esophagus Hyperlipidemia Rotator cuff tear, right Fracture of radius, distal, with ulna, right, closed Cervical cancer History of wrist fracture Osteoporosis Hypertension Supraspinatus tendon tear Surgical History Surgical History History of surgery on left wrist (~2007) H/O: hysterectomy Social History Social History Social History: 3 daughters Smoking packs per day: 0.5 Smoking cigarettes per day: 10.0 Years smoked: 20 Smoking pack-years: 10.00 Smoking status: Former smoker Tobacco type: cigarettes Second hand tobacco smoke exposure: No Smoking end date: 09/30/88 Alcohol intake: current Alcohol use details: occasional glass of wine Substance use: never Substance use type: does not use Do You Feel Safe in your Home?: Yes Lack of Transportation: No Lack of Food: Never True Current Housing: I Have Housing Concerned About Future Housing: No Difficulty Paying Gas/Electric Bills: No Difficulty Paying for Meds: No Currently Unemployed: No Education: Trade/Vocational Certificate Difficulty w/ Childcare or Family Care: No Living arrangements: with family Additional living arrangements comments: daughter Gender identity (if verbalized by the patient): Female Spiritual care concerns: No Exam Narrative: GENERAL: Well-appearing, well-nourished, and in no acute distress. HEAD: Normocephalic, atraumatic. EYES: Non injected, non icteric ENT: Nares clear, no rhinorrhea or epistaxis. Gross auditory acuity intact. NECK: Supple. No meningismus. CHEST: Speaking in full sentences. No respiratory distress. HEART: Regular rate and rhythm. . ABDOMEN: Soft, nondistended. No rigidity or guarding. Not peritoneal EXTREMITIES: Normal range of motion. No lower extremity edema. SKIN: Warm, dry, no rash. Pelvic/ Exam: Performed with RN Rehana present as supervisor harvesting/employment assistant. Normal age-appropriate external female genitalia without lesions rashes or active bleeding. Speculum inserted and there is thin friable tissue along the vaginal vault particularly along the right lateral edge where there is some bleeding, nothing pulsatile. Patient tolerates well. Labia majora are with edema/hypertrophic but without erythema, induration, pain/tenderness/discharge. NEURO: No focal deficits. Alert and oriented. Answering questions. Following commands. Normal speech without aphasia or dysarthria. PSYCH: Normal mood and affect. Course Vital Signs Vital signs: Vital Signs Temperature 98 F 07/02/25 17:44 Pulse Rate 77 07/02/25 17:44 Respiratory Rate 18 07/02/25 17:44 Blood Pressure 145/61 H 07/02/25 17:44 Pulse Oximetry 99 07/02/25 17:44 Oxygen Delivery Room Air 07/02/25 17:44 Temperature 97.6 F 07/02/25 19:22 Pulse Rate 60 07/02/25 23:51 Respiratory Rate 17 07/02/25 23:51 Blood Pressure 177/82 H 07/02/25 23:51 Pulse Oximetry 100 07/02/25 23:51 Oxygen Delivery Room Air 07/02/25 19:22 MDM - Female Genitourinary MDM Narrative Medical decision making narrative: She is a an exceedingly pleasant 74 year old female who presents with 4 days of vaginal bleeding. In the emergency department she is afebrile with acceptable vital signs, mild hypertension. The patient's pelvic exam, showed patient's bleeding along the right lateral vaginal vault thought to be secondary to thinning, likely due to age/estrogen/hormonal status but other more serious causes considered. Patient has an elevated creatinine. Per review of the EMR, she appears to have a baseline at CKD and has been at times elevated to this degree but with improvement thus I suspect MARQUEZ superimposed on CKD. 500cc IV fluids ordered. There is no bacteriuria seen on urinalysis. There is blood which is likely contaminate and some white blood cells which are likely inflammatory response. TSH abnormal; T3 and T4 ordered. CBC with mild abnormalities on the differential however patient is without leukocytosis or anemia. Discussed the CT findings with election supervisor ObGyn for Dr Dr Katelyn Werner via phone at 10:43pm regarding antibiotic choice and whether this should be more cephalexin versus metronidazole; he notes that reasonable to treat with both. First dose given in ED. Abnormal urinalysis reflexed to culture so presumably if infection, will be treated with the Keflex. Free T4 negative. I suspect subclinical hyperthyroidism based on this (technically T3 thryotoxicosis possible pending T3 , also considered). Plan discharge home with return precautions, instructions for prompt outpatient follow up. Discussed this with patient she verifies understanding. Instructed her not to use alcohol while on Flagyl. I did recommend she follow up and she notes that the left and she checked her insurance was no longer taken by Dr Yulia Aguirre; encouraged she call again to see if it changed. Also given contact info for Dr Zepeda as he was both election supervisor for Yulia Aguirre and the election supervisor ObGyn for general questions. Stable for discharge. Discussed return precautions. Differential Diagnosis Differential diagnosis: Likely urinary tract infection (/hemorrhagic cystitis), cervicitis, vaginitis, cystitis, dysmenorrhea and other (vaginal thinning; malignancy; fistula; thyroid dysfunction; coagulopathy; infectious etiology; trauma) Lab Data Attestation: I reviewed the patient's lab results. 07/02/25 19:51 07/02/25 19:51 Labs: Lab Results 07/02/25 07/02/25 Range/Units 19:50 19:51 WBC 5.8 (4.5-10.0) K/mm3 RBC 4.27 (4.2-5.4) M/mm3 Hgb 12.8 (12.0-15.0) g/dL Hct 39.7 (37.0-47.0) % MCV 93.0 (80-100) fl MCH 30.0 (26-34) pg MCHC 32.2 (32-36) g/dl RDW 14.0 (11.5-14.5) % Plt Count 307 (150-375) k/mm3 MPV 9.7 (7.4-10.4) fl Immature Gran % (Auto) 0.2 (0-0.5) % Neut % (Auto) 57.3 (45.5-73.1) % Lymph % (Auto) 31.6 (18.3-44.2) % [place] % (Auto) 8.7 H (2.6-8.5) % Eos % (Auto) 1.9 (0-4.4) % Baso % (Auto) 0.3 (0.2-1.2) % Lymph # (Auto) 1.84 (0.9-3.2) K/mm3 [place] # (Auto) 0.5 (0.1-0.6) K/mm3 Eos # (Auto) 0.1 (0-0.3) K/mm3 Baso # (Auto) 0.0 (0.0-0.1) K/mm3 Abs Immat Gran (auto) 0.01 (0.00-0.031) K/mm3 Absolute Neuts (auto) 3.3 (1.3-6.7) K/mm3 Absolute Nucleated RBC 0.000 (0.0-0.012) K/mm3 Nucleated RBC % 0.0 (0.0-0.2) % PT 12.5 (11.1-14.7) Seconds INR 0.9 APTT 35.1 (22.3-36.8) Seconds Sodium 139 (137-145) mmol/L Potassium 3.8 (3.4-5.0) mmol/L Chloride 103 (98-107) mmol/L Carbon Dioxide 28 (22-30) mmol/L Anion Gap 8 (4-12) mmol/L BUN 23 H (7-17) mg/dL Creatinine 1.38 H (0.7-1.0) mg/dL Estim Creat Clear Calc 22 ml/min Estimated GFR 37 L (59 - ) Glucose 125 H (65-110) mg/dL Calcium 9.3 (8.4-10.2) mg/dL Total Bilirubin 0.4 (0.2-1.3) mg/dL AST 29 (14-36) U/L ALT 16 (6-35) U/L Alkaline Phosphatase 118 (38-126) U/L Total Protein 7.4 (6.3-8.2) g/dL Albumin 4.3 (3.5-5.1) g/dL TSH 0.117 L (0.465-4.680) uIU/mL Free T4 0.90 (0.78-2.19) ng/dL Free T3 pg/mL 2.8 (2.0-4.4) pg/mL Urine Color Yellow (Yellow) Urine Appearance Cloudy H (Clear) Urine pH 5.5 (5.0-9.0) Ur Specific [place] 1.026 (1.001-1.035) Urine Protein 1+ H (Negative) mg/dL Urine Glucose (UA) 3+ H (Negative) mg/dL Urine Ketones Trace H (Negative) mg/dL Ur Blood (Man) 2+ H (Negative) Urine Nitrate Negative (Negative) Urine Bilirubin Negative (Negative) Urine Urobilinogen 0.2 (<2.0) mg/dL Add Ur Microanalysis Reviewed Leukocyte Esterase Rfl Trace H (Negative) PAM/UL Urine RBC 21-50 H (0-2) /hpf Urine WBC 6-10 H (0-3) /hpf Ur Squamous Epith Cells None seen (Few) /hpf Urine Bacteria None seen /hpf Urine Casts 6-10 Hyaline Casts Present (None) /lpf Urine Mucus Present /lpf Imaging Data Radiologist's impression: CT Abd & Pelvis with contrast Stat Rad (comparison 01/10/23): Lower pain ventral wall/pelvic and vulvar cellulitis. No subcutaneous gas or discrete fluid collection. Urinary bladder wall thickening and perivascular stranding. Layering urinary bladder calculus. Correlate with urinalysis. No hydronephrosis or nephrolithiasis. No bowel obstruction or inflammation. Normal appendix. Hepatic steatosis. Discharge Plan Discharge Clinical Impression: Abnormal vaginal bleeding in postmenopausal patient, Acute kidney injury superimposed on chronic kidney disease, Abnormal urinalysis, Hepatic steatosis, Cellulitis, pelvic, Hyperthyroidism, subclinical Patient Disposition: Home Condition: Stable Instructions: Antibiotic Form, Abnormal (Dysfunctional) Uterine Bleeding (ED), Acute Kidney Injury (DC), Chronic Kidney Disease (ED), Cellulitis (ED), Chronic Kidney Disease Diet (DC), Non-Alcoholic Fatty Liver Disease (ED) Additional Instructions: Given concern for infection, recommend the combination of anitibiotics and following up with your ObGyn. Do not drink alcohol while on the metronidazole/Flagyl as it can make you feel sick if you do. Return with any new/worsening symptoms. In particular, if you are saturating a pad/hour for 2-3 hours, pain not responding to medications, fever >100.4F, etc. Acetaminophen/Tylenol (maximum 4000 mg per day) is safe to take with NSAIDs (ibuprofen/Motrin) for pain relief. Patient Language: Vietnamese Prescriptions: New cephalexin 500 mg tablet 500 mg PO Q8H 5 Days Qty: 15 0RF Rx Instructions: ok to substitute capsule if necessary metronidazole 500 mg tablet 500 mg PO BID 5 Days Qty: 10 0RF No Action trazodone 50 mg tablet 25 mg PO HS PRN (Reason: sleep) furosemide 20 mg tablet 20 mg PO DAILY duloxetine 60 mg capsule,delayed release(DR/EC) 60 mg PO DAILY meloxicam 7.5 mg tablet 7.5 mg PO DAILY Qty: 10 0RF ferrous sulfate [iron] 325 mg (65 mg iron) tablet 325 mg PO DAILY cyanocobalamin (vitamin B-12) PO cephalexin 500 mg capsule 500 mg PO Q12H 7 Days Qty: 14 0RF ketorolac 10 mg tablet 10 mg PO Q8H PRN (Reason: pain) 5 Days Qty: 20 0RF Rx Instructions: maximum total duration of 5 days from all oral, intranasal, or parenteral formulations potassium chloride 20 mEq packet 20 meq PO DAILY Qty: 30 0RF magnesium oxide 200 mg magnesium tablet 200 mg PO DAILY Qty: 30 0RF lisinopril 20 mg tablet 20 mg PO DAILY 90 Days Qty: 90 3RF pantoprazole 40 mg tablet,delayed release (DR/EC) 40 mg PO QAM Qty: 90 3RF atorvastatin 10 mg tablet 10 mg PO DAILY Qty: 90 3RF Follow-up/Referrals: Zachary Zepeda MD [Physician, PROCESSING MGR] Kody Clark MD [Physician, PROCESSING MGR] Ramses,MD Charles [Primary Care Provider, Unknown] Stand Alone Forms: Work/School Release IP Time of Disposition: 23:19
--- OUTSIDE RECORDS SUMMARY | 2025-07-02 19:57 | XMS_ITS | Clinical Summary ---
Author Organization [facility] Address [address] [place] [address] Care Team Providers Care Unclaimed Property Manager Name Role Phone Bogdan Jacinto MD [...] FINDINGS AND IMPRESSION: Examination performed on a [employer] Discovery SL .: LUMBAR SPINE L2-L4: 1. [...] FINDINGS AND IMPRESSION: Examination performed on a [employer] Discovery SL .: LUMBAR SPINE L2-L4: 1. [...] to Health Maintenance Insurance [employer] Care Teams Unclaimed Property Manager Relationship Specialty Start Date End Date Bogdan Jacinto MD PCP - General INTERNAL MEDICINE 04/08/19
--- OUTSIDE RECORDS SUMMARY | 2025-07-02 19:57 | XMS_ITS | Clinical Summary ---
Author Organization [facility] Address [address] [place] [address] Care Team Providers Care Binding End Stitcher Name Role Phone Sony Maryanne SAMPSON Primary [...] Conv) Surgical History Surgery Date Site/Laterality Comments [place] TOTAL ABDOMINAL HYSTERECT W/WO RMVL TUBE OVARY [...] on file Legal Sex Female 9:17 PM HAT AND CAP OPENER Gender Identity Not on file Sexual Orientation [...] Read Routine (OP Routine) 08/23/2020 8:29 AM HAT AND CAP OPENER Encounter for screening mammogram for malignant neoplasm of breast from Last 3 Months or Most Recently Relevant to Health Maintenance Results * Screening Mammogram Bilateral W Calvin (08/23/2020 8:29 AM HAT AND CAP OPENER) Anatomical Region Laterality Modality Breast Bilateral Mammography Narrative 08/30/2020 1:32 PM HAT AND CAP OPENER Mammogram Technique: Bilateral Digital Breast Tomosynthesis, Bilateral C-view 2D Screening mammogram. Views obtained: bilateral craniocaudal and bilateral mediolateral oblique. Computer Aided Detection was performed. Mammogram Findings: The present examination has been compared to prior imaging studies performed at [facility] on 03/18/2017, 03/19/2018 and 04/07/2019. There [...] compared to prior imaging studies performed at [facility] on 03/18/2017, 03/19/2018 and 04/07/2019. There [...] Advance Directives For more information, please contact: [phone] Documents on File Type Date Recorded Patient Cardiovascular Specialist Expl anation ADVANCE DIRECTIVE 11/01/2020 12:31 PM Power of Well Surveying Engineer-Medical * Full Code (Latest Code Status on File) Date Activated Date Inactivated Comments 01/11/2023 3:08 PM 01/13/2023 11:21 PM Care Teams Binding End Stitcher Relationship Specialty Start Date End Date Maryanne Cardoza NP PCP - General Family Medicine 01/11/23
--- OUTSIDE RECORDS SUMMARY | 2025-07-02 19:57 | XMS_ITS | Data Portability ---
Author Organization [place] [facility], Main Office Address [address] [place] [address] Care Team Providers Care Lei Maker Name Role Phone CHARLES PEARCE Primary Care Provider Assessment Encounter Date Assessment Date Assessment LastModified by Organization Details LastModified Time 01/19/2025 01/19/2025 74 yo F with - [...] in 3-4 months. Annual labs in 04/23. [email or web address] Not available 01/19/2025 14:41:42 05/18/2025 05/18/2025 74 yo F with - DEPRESSION - ANXIETY - CHRONIC INSOMNIA - HTN - HLD - GERD - ESSENTIAL TREMOR - SUBCLINICAL HYPERTHYROIDISM, chronic - ANEMIA - LUMBAR SPONDYLOSIS - CHRONIC BACK PAIN - VIT B12 DEFICIENCY - EX-SMOKER - H/O MICROSCOPIC HEMATURIA Annual labs: 04/09/24. US thyroid: 11/14/23. MRI C & L spine wo: 05/10/23. US thyroid: 05/08/23. Annual labs: 04/09/23. CXR: 03/13/23. D/w pt in detail about her conditions, recent labs & imagines and further plan of care. Will do routine labs. Pt declined for LDCT chest/cxr. All meds verified with pt. Meds as directed. Cont heat pack as directed prn. Advised pt to talk with close friend/family [...] Cont f/u with Derm as per schedule. Offered to refer to Neuro; but pt declined. HM: WWE - 11/22, normal as per pt. Cont f/u with Gyne as per schedule. Mammo - 07/13/24, normal. Ordered. Colonoscopy - 2017, normal as per pt. Cont f/u with GI as per schedule. DEXA - 12/20, osteopenia ++ as per pt. Flu - 07/01/24. Tdap, Pneumo, Shingrix - At pharmacy/HD. F/u in 3 weeks. Annual labs in 05/25. [email or web address] Not available 05/18/2025 10:16:32 06/16/2025 06/16/2025 74 yo F with - PRE-DM, new - CKD III, new - HTN - HLD - HTG, new - SUBCLINICAL HYPERTHYROIDISM, chronic - ANEMIA - GERD - DEPRESSION - ANXIETY - CHRONIC INSOMNIA - ESSENTIAL TREMOR - LUMBAR SPONDYLOSIS - CHRONIC BACK PAIN - EX-SMOKER - H/O MICROSCOPIC HEMATURIA - H/O VIT B12 DEFICIENCY HbA1c: 6.1(05/18/25) Annual labs: 05/18/25. Annual labs: 04/09/24. US thyroid: 11/14/23. MRI C & L spine wo: 05/10/23. US thyroid: 05/08/23. Annual labs: 04/09/23. CXR: 03/13/23. D/w pt in detail about her conditions, recent labs & imagines and further plan of care. All meds verified with pt. Meds as directed. Cont heat pack as directed prn. Advised pt to talk with close friend/family [...] Cont f/u with Derm as per schedule. Offered to refer to Neuro; but pt declined. Pt declined for LDCT chest/cxr. HM: WWE - 11/22, normal as per pt. Cont f/u with Gyne as per schedule. Mammo - 07/13/24, normal. Ordered. Colonoscopy - 2017, normal as per pt. Cont f/u with GI as per schedule. DEXA - 12/20, osteopenia ++ as per pt. Flu - 07/01/24. Tdap, Pneumo, Shingrix - At pharmacy/HD. F/u in 3 months. CBC, BMP, A1c, lipids in 09/23. Annual labs in 05/25. [email or web address] Not available 06/16/2025 12:39:03 Plan of Treatment Reminders Order Date Submit Date Provider Last Modified By Organization Details Last Modified Time Details Appointments Any 15 2024 11:00A Keila Pearce MD Not available Not available Not available Lab glycohemo globin, total, blood [address] (Lab), [address] [place], [address], 06/16/2025 12:29:42 BMP, serum or plasma [address] (Lab), [address] [place], [address], 06/16/2025 12:29:42 lipid panel, serum [address] (Lab), [address] [place], [address], 06/16/2025 12:29:43 CBC w/ auto diff [address] (Lab), [address] [place], [address], 06/16/2025 12:29:43 vitamin B12 + folate, serum or blood [address] (Lab), [address] [place], [address], 05/26/2025 16:48:23 CBC w/ auto diff [address] (Lab), [address] [place], [address], 05/18/2025 10:53:43 CMP, serum or plasma 2024 025 [facility] (Lab), [address] [place], [address], 05/18/2025 20:33:07 urinalysi s complete, reflex culture [address] (Lab), [address] [place], [address], 05/18/2025 10:54:30 TSH, serum or plasma 2024 025 [facility] (Lab), [address] [place], [address], 05/18/2025 21:24:05 HbA1c (hemoglob in A1c), blood [address] (Lab), [address] [place], [address], 05/26/2025 16:48:23 magnesium , serum or plasma 2024 025 [facility] (Lab), [address] [place], [address], 05/18/2025 20:33:16 iron + total iron-bind ing capacity (TIBC), serum 2024 025 [facility] (Lab), [address] [place], [address], 05/18/2025 20:29:53 lipid panel, serum 2024 025 [facility] (Lab), [address] [place], [address], 05/18/2025 20:33:11 vitamin D3, 25-hydrox y, serum 2024 025 [facility] (Lab), [address] [place], [address], 05/18/2025 20:42:09 Referral None recorded. Procedures None recorded. Surgeries None recorded. Imaging MAMMO, screening , bilateral [address] [facility], [address], [address], 05/18/2025 10:33:30 Medication Orders duloxetin e 60 mg capsule,d elayed release 2024 025 [facility], [address] [place] [address], [id number], 06/16/2025 12:29:59 furosemid e 20 mg tablet 2024 025 [facility], [address] [place] [address], [address], 06/16/2025 12:30:10 lisinopri l 20 mg tablet 2024 025 [facility], [address] [place] [address], [address], 06/16/2025 12:30:03 primidone 50 mg tablet 2024 025 [facility], [address] [place] [address], [address], 06/16/2025 12:29:56 bupropion HCl XL 150 mg 24 hr tablet, extended release 2024 025 [facility], [address] [place] [address], [address], 06/16/2025 12:30:09 Farxiga 10 mg tablet 2024 025 [facility], [address] [place] [address], [address], 06/16/2025 12:30:00 atorvasta tin 20 mg tablet 2024 025 [facility], [address] [place] [address], [address], 06/16/2025 12:29:54 ferrous sulfate 325 mg (65 mg iron) tablet 2024 025 [facility], [address] [place] [address], [address], 06/16/2025 12:30:09 Calcium 600 + D(3) 600 mg-10 mcg (400 unit) tablet 2024 025 [facility], [address] [place] [address], [address], 06/16/2025 12:29:54 trazodone 50 mg tablet 2024 025 [facility], [address] [place] [address], [address], 06/16/2025 12:29:49 cyclobenz aprine 10 mg tablet 2024 025 [facility], [address] [place] [address], [address], 06/16/2025 12:29:58 Solu-Medr ol (PF) 125 mg/2 mL solution for injection 2024 025 [email or web address] Not available 06/16/2025 12:44:15 pantopraz ole 40 mg tablet,de layed release 2024 025 [facility], [address] [place] [address], [address], 06/16/2025 12:29:47 duloxetin e 60 mg capsule,d elayed release 2024 025 [facility], [address] [place] [address], [address], 05/18/2025 10:03:02 furosemid e 20 mg tablet 2024 025 [facility], [address] [place] [address], [address], 05/18/2025 10:03:02 lisinopri l 20 mg tablet 2024 025 [facility], [address] [place] [address], [address], 05/18/2025 10:03:07 primidone 50 mg tablet 2024 025 [facility], [address] [place] [address], [address], 05/18/2025 10:07:03 bupropion HCl XL 150 mg 24 hr tablet, extended release 2024 025 [facility], [address] [place] [address], [address], 05/18/2025 10:03:03 ferrous sulfate 325 mg (65 mg iron) tablet 2024 025 [facility], [address] [place] [address], [address], 05/18/2025 10:03:04 atorvasta tin 10 mg tablet 2024 025 [facility], [address] [place] [address], [address], 05/18/2025 10:03:05 Calcium 600 + D(3) 600 mg-10 mcg (400 unit) tablet 2024 025 [facility], [address] [place] [address], [id number], 05/18/2025 10:03:02 trazodone 50 mg tablet 2024 025 [facility], [address] [place] [address], [address], 05/18/2025 10:03:04 cyclobenz aprine 10 mg tablet 2024 025 [facility], [address] [place] [address], [address], 05/18/2025 10:03:06 Solu-Medr ol (PF) 125 mg/2 mL solution for injection 2024 025 [email or web address] Not available 05/18/2025 10:49:19 pantopraz ole 40 mg tablet,de layed release 2024 [facility], [address] [place] [address], [address], 05/18/2025 10:03:06 hydrocodo ne 5 mg-acetam inophen 325 mg tablet 2024 025 [facility] #[id number], [address] [place] [address], [address], 05/11/2025 05:02:15 cyclobenz aprine 10 mg tablet 2024 025 [facility], [address] [place] [address], [address], 04/27/2025 11:55:45 lidocaine 5 % topical patch 2024 [facility], [address] [place] [address], [address], 04/27/2025 11:55:43 meloxicam 7.5 mg tablet 2024 025 [email or web address] [facility], [address] [place] [address], [address], 04/27/2025 12:10:24 Solu-Medr ol (PF) 125 mg/2 mL solution for injection 2024 025 Not available 04/27/2025 12:11:51 Medrol (Josse) 4 mg tablets in a dose pack 2024 025 [facility] #[id number], [address] [place] [address], [address], 05/10/2025 05:02:16 cyanocoba shanelle (vit B-12) 1,000 mcg/mL injection solution 2024 025 Not available 03/09/2025 15:32:15 furosemid e 20 mg tablet 2024 [facility], [address] [place] [address], [address], 01/19/2025 14:38:42 lisinopri l 20 mg tablet 2024 [facility], [address] [place] [address], [address], 01/19/2025 14:38:42 bupropion HCl XL 150 mg 24 hr tablet, extended release 2024 [facility], [address] [place] [address], [address], 01/19/2025 14:38:44 ferrous sulfate 325 mg (65 mg iron) tablet 2024 [email or web address] [facility], [address] [place] [address], [address], 01/19/2025 14:38:54 atorvasta tin 10 mg tablet 2024 025 [facility], [address] [place] [address], [address], 01/19/2025 14:38:40 Calcium 600 + D(3) 600 mg-10 mcg (400 unit) tablet 2024 025 [facility], [address] [place] [address], [address], 01/19/2025 14:38:40 trazodone 50 mg tablet 2024 025 [facility], [address] [place] [address], [address], 01/19/2025 14:38:38 cyanocoba shanelle (vit B-12) 1,000 mcg/mL injection solution 2024 025 [email or web address] Not available 01/19/2025 15:16:39 cyclobenz aprine 10 mg tablet 2024 025 [facility], [address] [place] [address], [address], 01/19/2025 14:38:38 pantopraz ole 40 mg tablet,de layed release 2024 025 [facility], [address] [place] [address], [address], 01/19/2025 14:38:44 duloxetin e 60 mg capsule,d elayed release 2024 025 [facility], [address] [place] [address], [address], 01/19/2025 14:38:45 Patient TargetsNo targets recorded. Patient InstructionsNo instructions recorded. Reason for Referral None Reported. Results Created Date Observation Date Name Description Value Unit Range Abnormal Flag Note LastModifiedBy Organization Detail LastModifiedTime 05/18/2005/18/2025 CBC/C OMPLE TE BLD COUNT W/DIF F white blood cells 7.8 x10'3 /uL 4.2-10 .8 Not Available [facility] (Lab) [address] [place], [address], 05/18/2025 19:57:24 05/18/20 25 05/18/2025 CBC/C OMPLE TE BLD COUNT W/DIF F red blood cells 3.59 x10'6 /uL 4.10-5 .80 low Not Available [facility] (Lab) [address] [place], [address], 05/18/2025 19:57:24 05/18/20 25 05/18/2025 CBC/C OMPLE TE BLD COUNT W/DIF F hemoglobin 10.7 g/dL 13.2-1 7.0 low Not Available [facility] (Lab) [address] [place], [address], 05/18/2025 19:57:24 05/18/20 25 05/18/2025 CBC/C OMPLE TE BLD COUNT W/DIF F hematocrit 33.5 % 39.3-5 0.0 low Not Available [facility] (Lab) [address] [place], [address], 05/18/2025 19:57:24 05/18/20 25 05/18/2025 CBC/C OMPLE TE BLD COUNT W/DIF F mean red cell volume 93.3 fL 80.0-9 7.0 Not Available [facility] (Lab) [address] [place], [address], 05/18/2025 19:57:24 05/18/20 25 05/18/2025 CBC/C OMPLE TE BLD COUNT W/DIF F mean red cell hemoglobin 29.8 pg 27.0-3 3.0 Not Available [facility] (Lab) [address] [place], [address], 05/18/2025 19:57:24 05/18/20 25 05/18/2025 CBC/C OMPLE TE BLD COUNT W/DIF F mean RBC HGB concentratio n 31.9 g/dL 31.0-3 6.0 Not Available [facility] (Lab) [address] [place], [address], 05/18/2025 19:57:24 05/18/20 25 05/18/2025 CBC/C OMPLE TE BLD COUNT W/DIF F red cell distribution width 13.2 % 11.8-1 5.5 Not Available [facility] (Lab) [address] [place], [address], 05/18/2025 19:57:24 05/18/20 25 05/18/2025 CBC/C OMPLE TE BLD COUNT W/DIF F platelets 529 x10'3 /uL 150-40 0 high Not Available [facility] (Lab) [address] [place], [address], 05/18/2025 19:57:24 05/18/20 25 05/18/2025 CBC/C OMPLE TE BLD COUNT W/DIF F mean platelet volume 9.6 fL 9.0-12 .4 Not Available [facility] (Lab) [address] [place], [address], 05/18/2025 19:57:24 05/18/20 25 05/18/2025 CBC/C OMPLE TE BLD COUNT W/DIF F neutrophils 72.6 % 39.0-7 2.0 high Not Available [facility] (Lab) [address] [place], [address], 05/18/2025 19:57:24 05/18/20 25 05/18/2025 CBC/C OMPLE TE BLD COUNT W/DIF F lymphocytes 14.3 % 16.0-4 7.0 low Not Available [facility] (Lab) [address] [place], [address], 05/18/2025 19:57:24 05/18/20 25 05/18/2025 CBC/C OMPLE TE BLD COUNT W/DIF F monocytes 8.8 % 5.0-12 .0 Not Available [facility] (Lab) [address] [place], [address], 05/18/2025 19:57:24 05/18/20 25 05/18/2025 CBC/C OMPLE TE BLD COUNT W/DIF F eosinophils 3.2 % 1.0-7. 0 Not Available [facility] (Lab) [address] [place], [address], 05/18/2025 19:57:24 05/18/20 25 05/18/2025 CBC/C OMPLE TE BLD COUNT W/DIF F basophils 0.5 % 0.0-2. 0 Not Available [facility] (Lab) [address] [place], [address], 05/18/2025 19:57:24 05/18/20 25 05/18/2025 CBC/C OMPLE TE BLD COUNT W/DIF F immature granulocytes 0.6 % 0.00-0 .50 high Not Available [facility] (Lab) [address] [place], [address], 05/18/2025 19:57:24 05/18/20 25 05/18/2025 CBC/C OMPLE TE BLD COUNT W/DIF F neutrophils, absolute count 5.62 x10'3 /uL 1.5-8. 0 Not Available [facility] (Lab) [address] [place], [address], 05/18/2025 19:57:24 05/18/20 25 05/18/2025 CBC/C OMPLE TE BLD COUNT W/DIF F lymphocytes, absolute count 1.11 x10'3 /uL 1.07-3 .43 Not Available [facility] (Lab) [address] [place], [address], 05/18/2025 19:57:24 05/18/20 25 05/18/2025 CBC/C OMPLE TE BLD COUNT W/DIF F monocytes, absolute count 0.68 x10'3 /uL 0.29-0 .99 Not Available [facility] (Lab) [address] [place], [address], 05/18/2025 19:57:24 05/18/20 25 05/18/2025 CBC/C OMPLE TE BLD COUNT W/DIF F eosinophils, absolute count 0.25 x10'3 /uL 0.02-0 .53 Not Available [facility] (Lab) [address] [place], [address], 05/18/2025 19:57:24 05/18/20 25 05/18/2025 CBC/C OMPLE TE BLD COUNT W/DIF F basophils, absolute count 0.04 x10'3 /uL 0.01-0 .08 Not Available [facility] (Lab) [address] [place], [address], 05/18/2025 19:57:24 05/18/20 25 05/18/2025 CBC/C OMPLE TE BLD COUNT W/DIF F immature granulocytes ,absolute 0.05 x10'3 /uL 0.00-0 .05 Not Available [facility] (Lab) [address] [place], [address], 05/18/2025 19:57:24 05/18/20 25 05/18/2025 CBC/C OMPLE TE BLD COUNT W/DIF F nucleated red blood cells 0.0 % -0 Not Available [facility] (Lab) [address] [place], [address], 05/18/2025 19:57:24 05/18/20 25 05/18/2025 CBC/C OMPLE TE BLD COUNT W/DIF F NRBC# 0.00 x10'3 /uL Not Available [facility] (Lab) [address] [place], [address], 05/18/2025 19:57:24 05/18/20 25 05/18/2025 IRON/ TIBC PANEL total iron binding capacity 279 mcg/d L 265-47 5 Not Available [facility] (Lab) [address] [place], [address], 05/18/2025 20:44:46 05/18/20 25 05/18/2025 IRON/ TIBC PANEL % transferrin saturation 16 % 20-55 low Not Available [facility] (Lab) [address] [place], [address], 05/18/2025 20:44:46 05/18/20 25 05/18/2025 IRON/ TIBC PANEL unsaturated iron bind capacity 233 mcg/d L 126-38 2 Not Available [facility] (Lab) [address] [place], [address], 05/18/2025 20:44:46 05/18/20 25 05/18/2025 IRON/ TIBC PANEL iron 46 mcg/d L 42-175 Not Available [facility] (Lab) [address] [place], [address], 05/18/2025 20:44:46 05/18/20 25 05/18/2025 COMPR EHENS NICOL METAB OLIC PANEL sodium 139 mmol/ L 137-14 5 Not Available [facility] (Lab) [address] [place], [address], 05/18/2025 20:33:07 05/18/20 25 05/18/2025 COMPR EHENS NICOL METAB OLIC PANEL potassium 4.3 mmol/ L 3.5-5. 1 Not Available [facility] (Lab) [address] [place], [address], 05/18/2025 20:33:07 05/18/20 25 05/18/2025 COMPR EHENS NICOL METAB OLIC PANEL chloride 105 mmol/ L 98-107 Not Available [facility] (Lab) [address] [place], [address], 05/18/2025 20:33:07 05/18/20 25 05/18/2025 COMPR EHENS NICOL METAB OLIC PANEL carbon dioxide 24 mmol/ L 22-30 Not Available [facility] (Lab) [address] [place], [address], 05/18/2025 20:33:07 05/18/20 25 05/18/2025 COMPR EHENS NICOL METAB OLIC PANEL anion gap 14.3 mmol/ L 14-22 Not Available [facility] (Lab) [address] [place], [address], 05/18/2025 20:33:07 05/18/20 25 05/18/2025 COMPR EHENS NICOL METAB OLIC PANEL glucose 116 mg/dL 70-99 high Not Available [facility] (Lab) [address] [place], [address], 05/18/2025 20:33:07 05/18/20 25 05/18/2025 COMPR EHENS NICOL METAB OLIC PANEL BUN 21 mg/dL 8-19 high Not Available [facility] (Lab) [address] [place], [address], 05/18/2025 20:33:07 05/18/20 25 05/18/2025 COMPR EHENS NICOL METAB OLIC PANEL creatinine 1.38 mg/dL 0.66-1 .25 high Not Available [facility] (Lab) [address] [place], [address], 05/18/2025 20:33:07 05/18/20 25 05/18/2025 COMPR EHENS NICOL METAB OLIC PANEL GFR 37 Refer ence Range : [place] ge GFR Healt hy Adult : >60 mL/mi n/1.7 3 m2 Chron ic Kidne y Disea se: 15-60 mL/mi n/1.7 3 m2 Kidne y Failu re: <15/m L/min /1.73 m2 www.n iddk. nih.g ov The MDRD study equat ion has not been valid ated in child douglas <18 years of age; pregn ant women ; the elder ly >85 years of age; or in some racia l or ethni c subgr oups, such as Hispa nics. Outsi de the valid ated yissel eters , estim ated GFR is less accur ate, requi ring clini fercho judgm ent on a case- by-ca se basis . Clini fercho inter preta tion for other races and ages must be made by the clini lisa. The MDRD study equat ion has not been valid ated for the evalu ation of serum creat inine relat ed to nutri sam l statu s or medic ation usage . For perso ns <18 years of age, a pedia tric GFR calcu lator is avail able on the [facility] websi te: https :[email or web address] ramires.marilu nicholson/ramonita burgess s/kdo qi/gf r_cal culat or Not Available [facility] (Lab) [address] [place], [address], 05/18/2025 20:33:07 05/18/20 25 05/18/2025 COMPR EHENS NICOL METAB OLIC PANEL alkaline phosphatase 265 U/L 38-126 high Not Available [facility] (Lab) [address] [place], [address], 05/18/2025 20:33:07 05/18/20 25 05/18/2025 COMPR EHENS NICOL METAB OLIC PANEL alanine aminotransfe rase 15 U/L 0-35 Not Available [facility] (Lab) [address] [place], [address], 05/18/2025 20:33:07 05/18/20 25 05/18/2025 COMPR EHENS NICOL METAB OLIC PANEL aspartate aminotransfe rase 21 U/L 15-37 Not Available [facility] (Lab) [address] [place], [address], 05/18/2025 20:33:07 05/18/20 25 05/18/2025 COMPR EHENS NICOL METAB OLIC PANEL bilirubin, total 0.60 mg/dL 0.20-1 .30 Not Available [facility] (Lab) [address] [place], [address], 05/18/2025 20:33:07 05/18/20 25 05/18/2025 COMPR EHENS NICOL METAB OLIC PANEL calcium 9.7 mg/dL 8.4-10 .2 Not Available [facility] (Lab) [address] [place], [address], 05/18/2025 20:33:07 05/18/20 25 05/18/2025 COMPR EHENS NICOL METAB OLIC PANEL total protein 6.9 g/dL 6.3-8. 2 Not Available [facility] (Lab) [address] [place], [address], 05/18/2025 20:33:07 05/18/20 25 05/18/2025 COMPR EHENS NICOL METAB OLIC PANEL albumin 3.8 g/dL 3.0-4. 4 Not Available [facility] (Lab) [address] [place], [address], 05/18/2025 20:33:07 05/18/20 25 05/18/2025 COMPR EHENS NICOL METAB OLIC PANEL globulin 3.1 g/dL 2.6-4. 2 Not Available [facility] (Lab) [address] [place], [address], 05/18/2025 20:33:07 05/18/20 25 05/18/2025 COMPR EHENS NICOL METAB OLIC PANEL A/G ratio 1.2 ratio 1.0-2. 0 Not Available [facility] (Lab) [address] [place], [address], 05/18/2025 20:33:07 05/18/20 25 05/18/2025 LIPID PANEL cholesterol 150 mg/dL 140-19 9 NIH KD NSUS RECOM MENDA TION FOR SILVA STERO L: ADULT CHILD LOW RISK: <200 <170 BORDE RLINE : <200- 239 ----- HIGH RISK: >240 >200 Not Available [facility] (Lab) [address] [place], [address], 05/18/2025 20:33:11 05/18/20 25 05/18/2025 LIPID PANEL triglyceride s 183 mg/dL 0-150 high NIH KD NSUS REPOR T RECOM MENDA TION FOR TRIGL YCERI LEOBARDO: ADULT CHILD LOW RISK: <150 ----- BODER LINE: 150-1 99 ----- HIGH RISK: >200 ----- Not Available [facility] (Lab) [address] [place], [address], 05/18/2025 20:33:11 05/18/20 25 05/18/2025 LIPID PANEL HDL cholesterol 62 mg/dL 40- Not Available [facility] (Lab) [address] [place], [address], 05/18/2025 20:33:11 05/18/20 25 05/18/2025 LIPID PANEL LDL cholesterol, calculated 51 mg/dL 0-130 NIH KD NSUS REPOR T RECOM MENDA TIONS FOR LDL: ADULT CHILD LOW RISK <130 <110 (OPTI MAL LDL) <100 ----- JUMA RLINE : 130-1 59 ----- HIGH RISK: >160 >130 A TRIGL YCERI DE RESUL T >400 INVAL IDATE S THE CALCU LATIO N FOR LDL FRACT IONAT ION - THE LDL RESUL T WILL NOT BE REPOR LARISA. Not Available [facility] (Lab) [address] [place], [address], 05/18/2025 20:33:11 05/18/20 25 05/18/2025 MAGNE SIUM magnesium 1.6 mg/dL 1.6-2. 3 Not Available [facility] (Lab) [address] [place], [address], 05/18/2025 20:33:16 05/18/20 25 05/18/2025 HEMOG LOBIN A1C HA1C 6.1 % 4.0-6. 0 high Diabe lillian Scree rakan Crite roxanne: <5.7% Consi stent with absen ce of diabe lillian 5.7-6 .4% Consi stent with incre ased risk for diabe lillian (pred iabet es) >OR=6 .5% Consi stent with diabe lillian REFER ENCE: Diabe lillian Care 2016, 39(Clemente ppl.1 ):s13 -s22 Not Available [facility] (Lab) [address] [place], [address], 05/18/2025 20:37:57 05/18/2005/18/2025 VITAM IN D 25-HY DROXY [id number] 30.7 NG/mL 30-100 Vitam in D Statu s: Defic ient: <20 ng/mL Insuf ficie nt: 20-29 ng/mL Suffi cient : 30-10 0 ng/mL Not Available [facility] (Lab) [address] [place], [address], 05/18/2025 20:42:09 05/18/2005/18/2025 URINA LYSIS COMPL ETE/I RIS W/RFX color YELLOW Not Available [facility] (Lab) [address] [place], [address], 05/18/2025 20:59:43 05/18/20 25 05/18/2025 URINA LYSIS COMPL ETE/I RIS W/RFX appear EXTRA TURBID abnormal Not Available [facility] (Lab) [address] [place], [address], 05/18/2025 20:59:43 05/18/20 25 05/18/2025 URINA LYSIS COMPL ETE/I RIS W/RFX specific gravity 1.017 1.001- 1.030 Not Available [facility] ([facility]) [address] [place], [address], 05/18/2025 20:59:43 05/18/20 25 05/18/2025 URINA LYSIS COMPL ETE/I RIS W/RFX pH 5.5 pH_un its 5.0-9. 0 Not Available [facility] ([facility]) [address] [place], [address], 05/18/2025 20:59:43 05/18/20 25 05/18/2025 URINA LYSIS COMPL ETE/I RIS W/RFX leukocytes >/=500 nannette/u L negati ve- abnormal Not Available [facility] ([facility]) [address] [place], [address], 05/18/2025 20:59:43 05/18/20 25 05/18/2025 URINA LYSIS COMPL ETE/I RIS W/RFX nitrite 2+ negati ve- abnormal Not Available [facility] ([facility]) [address] [place], [address], 05/18/2025 20:59:43 05/18/20 25 05/18/2025 URINA LYSIS COMPL ETE/I RIS W/RFX protein 50 mg/dL negati ve- abnormal Not Available [facility] ([facility]) [address] [place], [address], 05/18/2025 20:59:43 05/18/20 25 05/18/2025 URINA LYSIS COMPL ETE/I RIS W/RFX glucose NORMAL mg/dL normal - Not Available [facility] ([facility]) [address] [place], [address], 05/18/2025 20:59:43 05/18/20 25 05/18/2025 URINA LYSIS COMPL ETE/I RIS W/RFX ketones NEGATI VE mg/dL negati ve- Not Available [facility] ([facility]) [address] [place], [address], 05/18/2025 20:59:43 05/18/20 25 05/18/2025 URINA LYSIS COMPL ETE/I RIS W/RFX urobilinogen NORMAL mg/dL normal - Not Available [facility] ([facility]) [address] [place], [address], 05/18/2025 20:59:43 05/18/20 25 05/18/2025 URINA LYSIS COMPL ETE/I RIS W/RFX bilirubin NEGATI VE mg/dL negati ve- Not Available [facility] ([facility]) [address] [place], [address], 05/18/2025 20:59:43 05/18/20 25 05/18/2025 URINA LYSIS COMPL ETE/I RIS W/RFX blood 0.5 mg/dL negati ve- abnormal Not Available [facility] ([facility]) [address] [place], [address], 05/18/2025 20:59:43 05/18/20 25 05/18/2025 URINA LYSIS COMPL ETE/I RIS W/RFX white blood cells PACKED /i??h pfi?? 0-8 abnormal Not Available [facility] ([facility]) [address] [place], [address], 05/18/2025 20:59:43 05/18/20 25 05/18/2025 URINA LYSIS COMPL ETE/I RIS W/RFX white blood cell clumps PACKED FIELD /i??h pfi?? none seen- abnormal Not Available [facility] (Lab) [address] [place], [address], 05/18/2025 20:59:43 05/18/20 25 05/18/2025 URINA LYSIS COMPL ETE/I RIS W/RFX red blood cells 21-40 /i??h pfi?? 0-4 abnormal Not Available [facility] ([facility]) [address] [place], [address], 05/18/2025 20:59:43 05/18/20 25 05/18/2025 URINA LYSIS COMPL ETE/I RIS W/RFX bacteria NONE none seen- Not Available [facility] ([facility]) [address] [place], [address], 05/18/2025 20:59:43 05/18/20 25 05/18/2025 URINA LYSIS COMPL ETE/I RIS W/RFX mucous OCCASI ONAL /i??l pfi?? none seen- abnormal Not Available [facility] (Lab) [address] [place], [address], 05/18/2025 20:59:43 05/18/2005/18/2025 URINA LYSIS COMPL ETE/I RIS W/RFX squamous epithelial FEW /i??l pfi?? abnormal Not Available [facility] (Lab) [address] [place], [address], 05/18/2025 20:59:43 05/18/20 25 05/18/2025 TSH W/REF ARGELIA FT4 TSH with reflex free T4 2.140 uIU/m L 0.465- 4.680 Not Available [facility] (Lab) [address] [place], [address], 05/18/2025 21:24:05 05/18/20 25 05/18/2025 VITAM IN B12 (CANDIDA SHANELLE ) vb12 >1000 pg/mL 239-93 1 high Not Available [facility] ([facility]) [address] [place], [address], 05/18/2025 21:32:36 05/18/2005/18/2025 FOLAT E, SERUM /PLAS MA folate 8.33 NG/mL 2.76-2 0.0 Not Available [facility] ([facility]) [address] [place], [address], 05/18/2025 21:32:42 05/18/20 25 05/18/2025 CULTU RE URINE urc ===== ===== ===== ===== ===== ===== ===== ===== ===== ===== ===== ===== ===== ===== ===== ===== ===== ===== ===== ===== ===== ===== ===== ===== Speci men NO.: [id number] Exam Statu s: Final Proce dure: CULTU RE URINE ===== ===== ===== ===== ===== ===== ===== ===== ===== ===== ===== ===== ===== ===== ===== ===== ===== ===== ===== ===== ===== ===== ===== ===== Iso/R esult : 01 Esche margy a coli Antim icrob ic/Do se LAUREN Syste lauren Urine __ ___ ___ Ampic illin <=8 S S Aztre onam <=4 S S Cefot axime <=2 Cipro floxa talisha <=0.2 5 S S Genta micin <=2 S S Bioty pe 45071 54500 Oxida se React ion N Extra Sensi tive Be NEG Amp/S ulbac barros <=8/4 S S Ceftr iaxon e <=1 S S Cefta zidim e <=1 S S Cefaz mani <=2 S S Cefep brennan <=2 S S Cefur oxime <=4 S S Levof loxac in <=0.5 S S Merop enem <=1 S S Pip/T azo <=8 S S Trime th/Clemente lfa <=2/3 8 S S Tetra cycli ne <=4 S S Tobra mycin <=2 S S Nitro furan toin <=32 S S Not Available [facility] ([facility]) [address] [place] [address], [address], 05/20/2025 07:33:04 Result Notes None recorded. Problems Name Problem SNOMED Code Status Onset Date Resolution Date Notes Provider Name and Address Organization Details Recorded Time Enthesopathy of hip region 52239848 Active Not Available [facility] 01/24/202 4 05:48:11 Varicose veins of lower extremity 62384917 Active Not Available [facility] 4 05:48:11 Urinary tract infectious disease 74633398 Active Charles Pearce MD [address] [facility], [place] [address], [place], [address] , [facility] 4 14:22:48 Depressive disorder 41348832 Active 2022 Not Available [facility] 4 05:48:11 Anxiety disorder 298482376 Active 2022 Not Available [facility] 4 05:48:11 Hypertensive disorder 04389086 Active 2022 Not Available [facility] 4 05:48:11 Hyperlipidemi a 60504435 Active 2022 Not Available [facility] 4 05:48:11 Gastroesophag eal reflux disease without esophagitis 739387256 Active 2022 Not Available [facility] 4 05:48:11 Chronic back pain 672569165 Active 2022 Not Available [facility] 4 05:48:11 Ex-smoker 6575949 Active 2022 Not Available [facility] 4 05:48:11 Essential tremor 759105483 Active 2022 Not Available [facility] 4 05:48:11 Osteopenia 200854391 Active 2022 Not Available [facility] 4 05:48:11 Mammography abnormal 718496573 Active 2022 Not Available [facility] 4 05:48:11 Subclinical hyperthyroidi sm 285593365 Active 2022 Not Available [facility] 4 05:48:11 Microscopic hematuria 485531588 Active 2022 Not Available [facility] 4 05:48:11 Anemia 440498031 Active 2022 Not Available [facility] 4 05:48:11 Claustrophobi a 94113650 Active 2022 Not Available [facility] 4 05:48:11 Chronic insomnia 859945183 Active 2022 Not Available [facility] 4 05:48:11 Localized eruption of skin 605248580 Active 2023 Charles Pearce MD [address], [place], [address] , [place] [facility] 4 14:09:18 Pigmented skin lesion of uncertain nature 933389226 Active 2023 Charles Pearce MD [address], [address], [place], [address] , [place] [facility] 4 14:22:03 Vitamin B12 deficiency (non anemic) 70315644 Active 2023 Charles Pearce MD [address], [address], [place], [address] , [place] [facility] 4 14:13:08 Acute back pain with sciatica 793144588 Active 2024 Charles Pearce MD [address], [address], [place], [address] , [facility] 5 11:48:21 Sciatica 35711818 Active 2024 Charles Pearce MD [address], [address], [place], [address] , [facility] 5 11:49:50 Lumbar spondylosis 499549799 Active 2024 Charles Pearce MD [address], [address], [place], [address] , [facility] 5 11:51:56 Acute urinary tract infection 664316037 Active 2024 Charles Pearce MD [address], [address], [place], [address] , [facility] 5 09:50:10 Prediabetes 947965771 Active 2024 Charles Pearce MD [address], [address], [place], [address] , [employer] 5 12:25:32 Chronic kidney disease stage 3A 075770635 Active 2024 Charles Pearce MD [address], [address], [place], [address] , [employer] 5 12:27:41 Hypertriglyce ridemia 404402162 Active 2024 Charles Pearce MD [address], [address], [place], [address] , [employer] 5 12:38:07 Problem Notes None recorded. Procedures Surgical History Date Name Laterality Status Provider Name and Address Organization Details Recorded Time 02/03/20 24 Medicare Wellness CPT Code, subsequent completed December STEPHEN Grier [employer] 02/03/2024 14:38:49 04/16/20 23 Most Recent Mammogram completed Charles Pearce MD [address], [address], [place], [address], [employer] 05/02/2023 14:37:48 04/16/20 22 Date of Last Mammogram completed Charles Pearce MD [address], [facility] [address], [place], [address], [employer] 05/02/2023 14:37:48 09/30/19 22 Date of Last Colonoscopy completed Lianet Morales RN [place] [employer] 03/12/2023 14:13:44 09/30/19 16 Shoulder joint surgery completed Lianet Morales RN [place] [employer] 03/12/2023 14:13:11 09/30/19 01 Hysterectomy completed STEPHEN Shaver [employer] 03/12/2023 14:12:29 Imaging Results None recorded. Procedure Notes None recorded. Medical Equipment None Reported. Allergies Allergen ID Allergen Name Allergen Category Reaction Reaction Severity Criticality Documentation Date Start Date Code Code System Note Provider Name and Address Organization Details Recorded Time 30389 No known allergy (situatio n) Not available Not available Not available Not available 07/01/2024 55141 6003 SNOMED Charles Pearce MD [address], [address], [place], [address] , [facility] [employer] 4 14:22:36 No known drug allergies Medications Name Sig Start Date Stop Date Status Note LastModified by Organization Details LastModified Time magnesium 200 mg tablets 200mg TAKE 1 TABLET BY MOUTH EVERY DAY active Not Available Not Available No t Available Prescriptio n - Prior Authorizati on Request [...] completed Not Available Not Available Not Available primidone 50 mg tablet Take 1 tablet every day by oral route at bedtime for 90 days. 2024 active Not Available Not Available Not Avai lable atorvastati n 20 mg tablet Take 1 tablet every day by oral route at bedtime for 90 days. 2024 active Not Available Not Available Not Avai lable tizanidine 2 mg tablet TAKE 1 TABLET [...] MOUTH 1 HOUR PRIOR TO EACH PROCEDURE 04/27 completed Not Available Not Available Not Available tizanidine 4 mg tablet TAKE 1/2 - 1 TABLET BY MOUTH THREE TIMES A DAY NEEDED FOR MUSCLE SPASTICIT Y 02/02 completed Not Available Not Available Not Available benzonatate 200 mg capsule TAKE 1 CAPSULE BY MOUTH 3 TIMES A DAY FOR 7 DAYS 04/27 completed Not Available Not Available Not Available cephalexin 250 mg capsule TAKE 1 CAPSULE BY MOUTH FOUR TIMES A DAY UNTIL FINISHED 04/01 completed Not Available Not Available Not Available hydrocodone 5 mg-acetamin ophen 325 mg tablet Take 1 tablet every 12 hours by oral route as needed for 7 days. 05/11 completed Not Available Not Available Not Available lisinopril 20 mg tablet Take 1 tablet every day by oral route as directed for 90 days. 2024 active Not Available Not Available Not Avai lable Medrol (Josse) 4 mg tablets in a dose pack Take 1 dose pk every day by oral route as directed for 6 days. 05/10 completed Not Available Not Available Not Available prednisone 20 mg tablet TAKE 2 TABLETS BY MOUTH WITH FOOD EVERY DAY FOR 5 DAYS 04/01 completed Not Available Not Available Not Available venlafaxine ER 150 mg capsule,ext ended release 24 hr 04/25 completed Not Available Not Available Not Available Klor-Con 20 mEq oral packet EVERY DAY active Not Available Not Available No t Available acetaminoph en 300 mg-codeine 30 mg tablet TAKE ONE TABLET BY MOUTH EVERY 6 HOURS NEEDED FOR PAIN 04/09 completed Not Available Not Available Not Available ciprofloxac in 250 mg tablet 04/25 completed Not Available Not Available Not Available ciprofloxac in 500 mg tablet Take 1 tablet twice a day by oral route as directed for 5 days. 06/01 completed Not Available Not Available Not Available tramadol 50 mg tablet TAKE 1 TABLET BY MOUTH EVERY 8 HOURS NEEDED FOR PAIN 03/12 completed Not Available Not Available Not Available ketorolac 10 mg tablet TAKE 1 TABLET BY MOUTH EVERY 8 HOURS NEEDED FOR PAIN FOR 5 DAYS MAXIMUM TOTAL DURATION OF 5 DAYS 04/27 completed Not Available Not Available Not Available meloxicam 7.5 mg tablet Take 1 tablet every 12 hours by oral route as needed for 90 days. 2024 active Not Available Not Available Not Avai lable alprazolam 0.5 mg tablet TAKE 1 TABLET(0. [...] mg capsule TAKE 1 CAPSULE BY MOUTH EVERY 12 HOURS FOR 7 DAYS active Not Available Not Available No t Available pantoprazol e 40 mg tablet,dirk yed [...] Not Available Not Available Not Avai lable lidocaine 5 % topical patch APPLY 1 PATCH BY TOPICAL ROUTE ONCE DAILY (MAY WEAR UP TO 12 HOURS.) 2024 active Not Available Not Available Not [...] oral route as needed for 90 days. 04/27 completed Not Available Not Available Not Available amoxicillin 875 mg-potassiu m clavulanate 125 mg tablet TAKE 1 TABLET BY MOUTH EVERY 12 HOURS FOR 7 DAYS 04/09 completed Not Available Not Available Not Available amoxicillin 500 mg-potassiu m clavulanate 125 mg tablet TAKE 1 TABLET BY MOUTH EVERY 12 HOURS FOR 5 DAYS 04/27 completed Not Available Not Available Not Available oxycodone 5 mg tablet 03/12 completed [...] Not Available Not Available Not Avai lable Solu-Medrol (PF) 125 mg/2 mL solution for injection Take 100 mg by injection route for 1 day. 2024 active pt gia well Not Available Not Available Not Available Farxiga 10 mg tablet Take 1 tablet every [...] Updated DateTime 01/19/2025 140/80 mm[Hg] Keila Blum [address], [address], [place], [address], [place] [employer] 01/19/2025 14:43:10 Date Recorded Body height Body mass index (BMI) Body weight Body temperature Oxygen saturation Oxygen saturation in Arterial blood by Pulse oximetry Heart rate Provider Name and Address Organization Details Last Updated DateTime 158.75 cm 25 kg/m2 80112.0 4 g 97.3 [degF] 98 % 98 % 77 /min Dilcia Sandoval RN [place] [facility] [employer] 14:33:10 Date Recorded Body height Body mass index (BMI) Body weight Body temperature Oxygen saturation Oxygen saturation in Arterial blood by Pulse oximetry Heart rate Systolic And Diastolic Provider Name and Address Organization Details Last Updated DateTime 158.75 cm 24.6 kg/m2 82984.3 6 g 97.2 [degF] 98 % 98 % 89 /min 100/68 mm[Hg] Dilcia Sandoval RN [employer] 11:43:24 Date Recorded Heart rate Oxygen saturation Oxygen saturation in Arterial blood by Pulse oximetry Provider Name and Address Organization Details Last Updated DateTime 05/18/2025 90 /min 98 % 98 % Charles Pearce MD [address], [address], [place], [address], [employer] 05/18/2025 10:10:45 Date Recorded Body height Body mass index (BMI) Body weight Body temperature Systolic And Diastolic Provider Name and Address Organization Details Last Updated DateTime 05/18/2025 158.75 cm 23.8 kg/m2 93309.9 9 g 97.7 [degF] 140/80 mm[Hg] Dilcia Sandoval RN [facility] [employer] 09:56:32 Date Recorded Oxygen saturation Oxygen saturation in Arterial blood by Pulse oximetry Provider Name and Address Organization Details Last Updated DateTime 06/16/2025 96 % 96 % Charles Pearce MD [address], [address], [place], [address], [facility] [employer] 06/16/2025 12:36:27 Date Recorded Body height Body mass index (BMI) Body weight Body temperature Heart rate Systolic And Diastolic Provider Name and Address Organization Details Last Updated DateTime 158.75 cm 24.3 kg/m2 32381.3 7 g 97.4 [degF] 76 /min 120/80 mm[Hg] Dilcia Sandoval RN [facility] [employer] 12:19:47 Social History Question Answer Notes LastModified by Organization Details LastModified Time Tobacco Smoking Status Former Smoker Maria L gomez, [facility] [employer] 05/02/2023 14:02:46 Do You Have An Advance Directive? Yes [email or web address] Information not available 03/12/2023 Are You Blind Or Do You Have Difficulty Seeing? No [email or web address] Information not available 05/02/2023 What Is Your Level Of Caffeine Consumption? Moderate One Cup Of Coffee/da y 3 Glasses Of Tea/day [email or web address] Information not available 05/18/2025 What Is Your Code Status? DNR [email or web address] Information not available 05/02/2023 In The 14 Days Before Symptom Onset, Have You Had Close Contact With A Laboratory-confi rmed COVID-19 While That Case Was Ill? No [email or web address] Information not available 05/02/2023 In The 14 Days Before Symptom Onset, Have You Had Close Contact With A Person Who Is Under Investigation For COVID-19 While That Person Was Ill? No [email or web address] Information not available 05/02/2023 Are You Deaf Or Do You Have Serious Difficulty Hearing? No [email or web address] Information not available 05/02/2023 What Type Of Diet Are You Following? VEGETARIAN Information not available 03/12/2023 What Is The Highest Grade Or Level Of School You Have Completed Or The Highest Degree You Have Received? [id number] Information not available 05/02/2023 Have There Been Any Changes To Your Family Or Social Situation? No [email or web address] Information not available 05/02/2023 When Did You Quit Smoking? 16+yearssincelastc igarette Quit 30 Years Ago [email or web address] Information not available 05/02/2023 Do You Use Insect Repellent Routinely? Yes [email or web address] Information not available 05/02/2023 Where Do You Live? SingleLevelHouse [email or web address] Information not available 05/02/2023 Do You Have A Medical Power Of Pickle Maker? Yes Kami Information not available 05/02/2023 What Was The Date Of Your Most Recent Tobacco Screening? 02/03/2024 [email or web address] Information not available 02/03/2024 How Many Children Do You Have? 3 [email or web address] Information not available 05/02/2023 What Is Your Current Pack Years? 10packyears [email or web address] Information not available 05/18/2025 Do You Have Any Pets? Yes Dog [email or web address] Information not available 05/02/2023 What Is Your Relationship Status? Passed 6 Years Ago [email or web address] Information not available 03/12/2023 Do You Use Your Seat Belt Or Car Seat Routinely? Yes [email or web address] Information not available 05/02/2023 Do You Have Smoke And Carbon Monoxide Detectors In Your Home? Yes Information not available 05/02/2023 At What Age Did You Start Smoking Tobacco? 16 [email or web address] Information not available 05/18/2025 Are You Passively Exposed To Smoke? No [email or web address] Information not available 05/02/2023 Are There Any Smokers In Your House? No Lives Alone [email or web address] Information not available 05/02/2023 How Much Tobacco Do You Smoke? 0.5 PPD [email or web address] Information not available 05/18/2025 Do You Use Sunscreen Routinely? Yes [email or web address] Information not available 05/02/2023 How Many Years Have You Smoked Tobacco? 9 [email or web address] Information not available 05/18/2025 Have You Recently Traveled Abroad? No [email or web address] Information not available 05/02/2023 Do You Have Difficulty Walking Or Climbing Stairs? No [email or web address] Information not available 05/02/2023 Are You Currently In School? No [email or web address] Information not available 05/02/2023 Sex: Unknown Functional Status Question Answer Note LastModified by Organizat ion Details LastModified Time Do you use any illicit or recreational drugs? No [email or web address] Information not available 05/02/2023 Do you or have you ever used any other forms of tobacco or nicotine? No [email or web address] Information not available 05/18/2025 What is your level of alcohol consumption? Occasional [email or web address] Information not available 03/12/2023 Are you currently employed? No [email or web address] Information not available 05/02/2023 Do you have transportation difficulties? No [email or web address] Information not available 05/02/2023 Are you able to walk independently without assistance or assistive devices? YESWOREST Information not available 05/02/2023 Do you have difficulty doing errands alone? No [email or web address] Information not available 05/02/2023 Are you able to care for yourself independently? No [email or web address] Information not available 05/02/2023 Do you have difficulty dressing, bathing, grooming, or toileting? No [email or web address] Information not available 05/02/2023 What is your exercise level? Occasional walks dog [email or web address] Information not available 03/12/2023 Mental Status Question Answer Note LastModified by Organizat ion Details LastModified Time Do you feel stressed (tense, restless, nervous, or anxious, or unable to sleep at night)? [id number] [email or web address] Information not available 05/02/2023 Do you have difficulty concentrating, remembering or making decisions? No Information no t available 05/02/2023 Family History [...] Time Influenza, high-dose, quadrivalent, PF 07/01/2023 completed NATASHA Solano [facility] 07/01/2023 14:49:15 Influenza, high-dose, trivalent, PF 07/01/2024 completed NATASHA Solano [facility] 07/01/2024 14:50:57 Past Encounters Encounter ID Performer Location Encounter Start Date Encounter Closed Date Diagnosis/Indication Diagnosis SNOMED-CT Code Diagnosis ICD10 Code Diagnosis IMO Codes Diagnosis Note [id number] Charles Pearce MD [address] [address] 03/12/2023 13:58:39 03/12/2023 14:54:24 Depressive disorder 14203246 F32.A Anxiety disorder F41.9 Hypertensive disorder 38 517986 I10 Hyperlipidemia 92486655 E78.5 Gastroesop hageal reflux disease without esophagitis 113666821 K21.9 Chronic back pain 493656 002 G89.29 Ex-smoker 9707690 Z87.89 1 Essential tremor 0543271 09 G25.0 [id number] Charles Pearce MD [address] [address] 04/09/2023 09:48:21 04/09/2023 10:18:57 Hypertensive disorder 34108270 I10 Hyperlipidemia 68743015 E78.5 Gastroesop hageal reflux disease without esophagitis 586918256 K21.9 Essential tremor 7418998 09 G25.0 Chronic back pain 519546 002 G89.29 Depressive disorder 3548 9007 F32.A Anxiety disorder F41.9 Ex-smoker 6277806 Z87.89 1 Diabetes m ellitus screening 412663153 Z13.1 Screening mammography 24 633060 Z12.31 Osteopenia 069063670 M85 .80 [id number] Charles Pearce MD [address] [address] 05/02/2023 14:01:49 05/02/2023 14:36:25 Hypertensive disorder 14462590 I10 Hyperlipidemia 27946984 E78.5 Gastroesop hageal reflux disease without esophagitis 722503489 K21.9 Essential tremor 8337385 09 G25.0 Chronic back pain 518999 002 G89.29 Depressive disorder 3548 9007 F32.A Anxiety disorder F41.9 Ex-smoker 5622922 Z87.89 1 Osteopenia 258885559 M85 .80 [facility] hyperthyroidism 193256215 E05.90 Microscopic hematuria 19 8662303 R31.29 Anemia 186853162 D64.9 Claustrophobia 95432286 F40.240 [id number] Charles Pearce MD [address] [address] 05/08/2023 13:53:49 05/08/2023 14:31:13 [id number] Charles Pearce MD [address] [address] 05/23/2023 14:17:41 05/23/2023 14:41:44 Hypertensive disorder 33368474 I10 Hyperlipidemia 04026806 E78.5 Gastroesop hageal reflux disease without esophagitis 653189434 K21.9 Essential tremor 2167396 09 G25.0 Chronic back pain 981922 002 G89.29 Depressive disorder 3548 9007 F32.A Anxiety disorder F41.9 Ex-smoker 3775550 Z87.89 1 Osteopenia 283029052 M85 .80 [facility] hyperthyroidism 739118032 E05.90 Microscopic hematuria 19 1415341 R31.29 resolved Anemia 266798097 D64.9 Claustrophobia 00599444 F40.240 Chronic insomnia 4581034 04 F51.04 [id number] Charles Pearce MD [address] [address] 07/01/2023 14:17:20 07/01/2023 14:44:39 Subclinical hyperthyroidism 570806757 E05.90 Chronic insomnia 0024887 04 F51.04 Hypertensive disorder 38 782163 I10 Hyperlipidemia 14274585 E78.5 Gastroesop hageal reflux disease without esophagitis 274305174 K21.9 Essential tremor 1576308 09 G25.0 Chronic back pain 569284 002 G89.29 Depressive disorder 3548 9007 F32.A Anxiety disorder F41.9 Ex-smoker 7901247 Z87.89 1 Osteopenia 500039639 M85 .80 Anemia 618714601 D64.9 Claustrophobia 95562578 F40.240 Administra tion of influenza vaccine 95136492 Z23 [id number] Charles Pearce MD [address] [id number] 07/25/2023 14:03:29 07/25/2023 15:49:46 [id number] Charles Pearce MD [address] [id number] 08/05/2023 13:58:49 08/05/2023 14:26:45 Chronic insomnia 893734519 F51.04 [facility] hyperthyroidism 227901681 E05.90 Hypertensive disorder 38 015156 I10 Hyperlipidemia 32813343 E78.5 Gastroesop hageal reflux disease without esophagitis 858682159 K21.9 Essential tremor 9016340 09 G25.0 Chronic back pain 117798 002 G89.29 Depressive disorder 3548 9007 F32.A Anxiety disorder F41.9 Ex-smoker 1915806 Z87.89 1 Osteopenia 981746764 M85 .80 Anemia 963885771 D64.9 Claustrophobia 38414126 F40.936 [id number] Charles Pearce MD [address] [id number] 11/05/2023 13:59:51 11/05/2023 14:23:41 Anemia 413610606 D64.9 Chronic insomnia 9110762 04 F51.04 [facility] hyperthyroidism 223524072 E05.90 Hypertensive disorder 38 435641 I10 Hyperlipidemia 95524049 E78.5 Gastroesop hageal reflux disease without esophagitis 497241165 K21.9 Essential tremor 7020210 09 G25.0 Chronic back pain 807620 002 G89.29 Depressive disorder 3548 9007 F32.A Anxiety disorder F41.9 Osteopenia 059969773 M85 .80 Ex-smoker 3907751 Z87.89 1 [id number] Charles Pearce MD [address] 1 02/03/2024 13:57:48 02/03/2024 15:02:59 Chronic insomnia 297332456 F51.04 Anemia 535460729 D64.9 [facility] hyperthyroidism 436760818 E05.90 Hypertensive disorder 38 170578 I10 Hyperlipidemia 91500131 E78.5 Gastroesop hageal reflux disease without esophagitis 986168494 K21.9 Essential tremor 7644232 09 G25.0 Chronic back pain 042375 002 G89.29 Depressive disorder 3548 9007 F32.A Anxiety disorder 06 F41.9 Osteopenia 776926909 M85 .80 Ex-smoker 5855387 Z87.89 [address] [facility] th examination 597400924 Z00.00 Screening for disorder 077830540 Z13.9 [id number] Charles Pearce MD [address] [address] 04/09/2024 11:43:18 04/09/2024 12:25:52 Chronic insomnia 714466787 F51.04 Anemia 590560900 D64.9 [facility] hyperthyroidism 393839201 E05.90 Hypertensive disorder 38 181652 I10 Hyperlipidemia 58567978 E78.5 Gastroesop hageal reflux disease without esophagitis 088102587 K21.9 Essential tremor 5927572 09 G25.0 Chronic back pain 468813 002 G89.29 Depressive disorder 3548 9007 F32.A Anxiety disorder F41.9 Osteopenia 894669879 M85 .80 Ex-smoker 0661250 Z87.89 1 Screening mammography 24 968221 Z12.31 [id number] Charles Pearce MD [address] [id number] 1 04/29/2024 14:03:39 04/29/2024 14:59:59 Hypertensive disorder 27922319 I10 Anemia 812900882 D64.9 Chronic insomnia 2304004 04 F51.04 [facility]clin[facility] l hyperthyroidism 038686184 E05.90 Hyperlipidemia 88053647 E78.5 Gastroesop hageal reflux disease without esophagitis 212582549 K21.9 Essential tremor 4033974 09 G25.0 Chronic back pain 457903 002 G89.29 Depressive disorder 3548 9007 F32.A Anxiety disorder 06 F41.9 Osteopenia 533946881 M85 .80 Ex-smoker 1266413 Z87.89 1 Microscopic hematuria 19 3056288 R31.29 [id number] Charles Pearce MD [address] [address] 1 06/08/2024 12:40:51 06/08/2024 12:52:11 [id number] Charles Pearce MD [address] [address] 1 06/11/2024 14:07:27 06/11/2024 14:39:14 Localized eruption of skin 379084996 R21 Rt leg - 2 Pigmented skin lesion of uncertain nature 691865835 L81.9 [id number] Charles Pearce MD [address] [address] 1 07/01/2024 14:00:37 07/01/2024 14:27:31 Hypertensive disorder 85279883 I10 Anemia 236522098 D64.9 Chronic insomnia 9671730 04 F51.04 Subclinica l hyperthyroidism 113007887 E05.90 Hyperlipidemia 34402717 E78.5 Gastroesop hageal reflux disease without esophagitis 386872219 K21.9 Essential tremor 3215843 09 G25.0 Chronic back pain 058811 002 G89.29 Depressive disorder 3548 9007 F32.A Anxiety disorder F41.9 Osteopenia 520875472 M85 .80 Ex-smoker 9882277 Z87.89 1 Microscopic hematuria 19 2754834 R31.29 Resolved Administra tion of influenza vaccine 40780162 Z23 Vitamin B1 2 deficiency (non anemic) 49176855 E53.8 [id number] Charles Pearce MD [address] [address] 1 08/06/2024 15:01:44 08/06/2024 15:39:59 Vitamin B12 deficiency (non anemic) 62321265 E53.8 [id number] Charles Pearce MD [address] [address] 1 10/12/2024 15:07:10 10/12/2024 15:33:04 Microscopic hematuria 360899341 R31.29 Resolved Anemia 502071785 D64.9 Hypertensive disorder 38 563430 I10 Chronic insomnia 6396962 04 F51.04 Subclinica l hyperthyroidism 307352822 E05.90 Chronic Hyperlipidemia 63031268 E78.5 Gastroesop hageal reflux disease without esophagitis 352566174 K21.9 Essential tremor 8068463 09 G25.0 Chronic back pain 626433 002 G89.29 Depressive disorder 3548 9007 F32.A Anxiety disorder F41.9 Osteopenia 351329035 M85 .80 Ex-smoker 0912168 Z87.89 1 Vitamin B1 2 deficiency (non anemic) 02092582 E53.8 [id number] Charles Pearce MD [address] [address] 1 12/16/2024 16:56:58 12/17/2024 14:32:04 Vitamin B12 deficiency (non anemic) 80079754 E53.8 [id number] Charles Pearce MD [address] [address] 1 01/19/2025 14:26:59 01/19/2025 14:57:30 Hypertensive disorder 29913197 I10 Chronic insomnia 2271163 04 F51.04 Microscopic hematuria 19 6526494 R31.29 Resolved Anemia 611479179 D64.9 Subclinica l hyperthyroidism 675596363 E05.90 Chronic Hyperlipidemia 76807167 E78.5 Gastroesop hageal reflux disease without esophagitis 531057852 K21.9 Essential tremor 8750573 09 G25.0 Chronic back pain 190641 002 G89.29 Depressive disorder 3548 9007 F32.A Anxiety disorder F41.9 Osteopenia 259554492 M85 .80 Ex-smoker 4348363 Z87.89 1 Vitamin B1 2 deficiency (non anemic) 92436520 E53.8 [id number] Charles Pearce MD [address] [address] 1 03/09/2025 15:00:21 03/09/2025 16:37:36 Vitamin B12 deficiency (non anemic) 38159887 E53.8 [id number] Charles Pearce MD [address] [address] 1 04/27/2025 11:20:12 04/27/2025 12:02:28 Seen in department 409990489 Z76.89 4853662393 Acute back pain with sciatica 462664901 M54.41 60484841 Sciatica 98955191 M54.31 66525069 Lumbar spondylosis 12010 0009 M47.816 14099 Chronic back pain 704774 002 G89.29 [id number] Charles Pearce MD [address] [address] 1 05/18/2025 09:42:07 05/18/2025 10:33:30 Anxiety disorder 712626353 F41.9 Chronic insomnia 1977814 04 F51.04 Hypertensive disorder 38 706589 I10 Microscopic hematuria 19 7405538 R31.29 Resolved Anemia 330076907 D64.9 Subclinica l hyperthyroidism 607682891 E05.90 Chronic Hyperlipidemia 41120817 E78.5 Gastroesop hageal reflux disease without esophagitis 827327336 K21.9 Essential tremor 5940856 09 G25.0 Chronic back pain 555450 002 G89.29 Depressive disorder 3548 9007 F32.A Osteopenia 255122439 M85 .80 Vitamin B1 2 deficiency (non anemic) 25751208 E53.8 Ex-cigarette smoker 2810 19388 Z87.891 263813 Screening mammography 24 585384 Z12.31 [id number] Charles Pearce MD [address] [address] 1 06/16/2025 12:08:05 06/16/2025 12:41:30 Hypertensive disorder 60466522 I10 Anxiety disorder 2286338 06 F41.9 Chronic insomnia 1426294 04 F51.04 Microscopic hematuria 19 7929189 R31.29 Resolved Anemia 672716010 D64.9 Subclinica l hyperthyroidism 344220220 E05.90 Chronic Hyperlipidemia 82123082 E78.5 Gastroesop hageal reflux disease without esophagitis 186346123 K21.9 Essential tremor 3048983 09 G25.0 Chronic back pain 712883 002 G89.29 Depressive disorder 3548 9007 F32.A Osteopenia 438800450 M85 .80 Ex-cigarette smoker 2810 36708 Z87.891 848315 Vitamin B1 2 deficiency (non anemic) 61849097 E53.8 resolved Prediabetes 444601475 R7 3.03 149821 Chronic ki dney disease stage 3A 692142283 N18.31 8019214135 Hypertriglyceridemia 302 939652 E78.1 772753 Health Concerns Section Related Observation LastModified by Organization Detai ls LastModified Time None Recorded Concern Status LastModified by Organization Details LastModified Time None Recorded Advance Directives Directive Y: Payers Insurance Date Sequence Insurance Name Policy Number Policy Walton Covered Member ID Walton Member ID Guarantor Name 03/09/2025 1 [facility] - [employer] - SECURE [employer] - MEDICARE COMPLETE PLAN 2 (MEDICARE REPLACEMENT HMO) [id number] Angela Mcmillan [id number] Angela Mcmillan 06/16/2025 1 [facility] (MEDICARE REPLACEMENT HMO) Angela Mcmillan [id number] Angela Mcmillan Notes Date Note Type Note Provider Name and Address Organization Details Recorded Time 01/19/2025 text/html Pt is here for f/u on her meds and chronic conditions. Doing [...] Pearce MD [address], [place], [address], [employer] 01/19/2025 14:43:40 04/27/2025 text/html ACV: C/o lower back pain with radiation to Rt buttock for last 3 weeks. Pt denies any recent fall/trauma/heavy lifting. Denies any incontinence. Pt went to for this and was given Tramadol and Meloxicam; but its not helping her. Pt has seen [facility] clinic at [place] for this and got shots in the past with them. Charles Pearce MD [address], [place], [address], [employer] 04/27/2025 12:10:59 05/18/2025 text/html Pt is here for her annual exam. Doing overall much better with her back pain. Denies any problem with meds. Denies any new concern. Pt wants to get steroid shot today too. Pt is doing overall well with her [...] Pearce MD [address], [place], [address], [employer] 05/18/2025 10:16:37 06/16/2025 text/html Pt is here for f/u on her annual labs. Doing overall much better with her back pain. Denies any problem with meds. Denies any new concern. Pt wants to get steroid shot today too. Pt is doing overall well with her [...] is f/u with [facility] clinic [facility] and [place] for her chronic neck and low back pain and she got epidural shot with them and she is doing much better now. Charles Pearce MD [address] [place] [address], [facility] [address], [place], [address], [place] [facility] [employer] 06/16/2025 12:39:46 OBGyn Episode No OBEpisode recorded.
--- OUTSIDE RECORDS SUMMARY | 2025-07-02 19:57 | XMS_ITS | Encounter Summary ---
Author Organization [facility] Healthcare Address [address] [place] [address] Care Team Providers Care Senior Sas Developer Name Role Phone Orville Bardales MD, Bogdan Duran Primary Care Provider Maryanne Cardoza NP Primary Care Provider [phone] Encounter Details Date Type Department Care Team ([facility] Contact Info) Description 10/31/2020 Telephone [facility] [address] [place] [address] Tamanna Carr, RT Social History Tobacco Use Types Packs/Day Years Used Date Smoking Tobacco: Former Cigarettes 7 1991 Smokeless Tobacco: Never Alcohol Use Standard Drinks/Week Comments Yes 0 (1 standard drink = 0.6 oz pur e alcohol) 2 glasses wine per month Comments No Sex and Gender Information Value Date Recorded Sex Assigned at Not on file 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
--- OUTSIDE RECORDS SUMMARY | 2025-07-02 19:57 | XMS_ITS | Encounter Summary ---
Author Organization [facility] Address On license of [facility] [place] [address] Care Team Providers Care Insulation Estimator Name Role Phone Bogdan Jacinto MD Primary Care Provider Unava ilable Encounter Details Date Type Department Care Team (Latest Contact Info) Description 08/05/2018 Abstract [facility] , Joey Vega MD [...] on filedocumented in this encounter Care Teams Insulation Estimator Relationship Specialty Start Date End Date Bogdan Jacinto MD PCP - General INTERNAL MEDICINE 04/08/19 documented as of this encounter
[2025-07-02 19:59] LABS: Hematocrit 39.7 % (37.0-47.0); Hemoglobin 12.8 g/dL (12.0-15.0); Immature Granulocyte Percent A 0.2 % (0-0.5); Lymphocytes Absolute Auto 1.84 K/mm3 (0.9-3.2); Mean Corpuscular HGB Conc 32.2 g/dl (32-36); Mean Corpuscular Hemoglobin 30.0 pg (26-34); Mean Corpuscular Volume 93.0 fl (80-100); Nucleated Red Blood Cells Absolute Auto 0.000 K/mm3 (0.0-0.012); Nucleated Red Blood Cells Perc 0.0 % (0.0-0.2); Platelet Count Result 307 k/mm3 (150-375); Red Blood Count 4.27 M/mm3 (4.2-5.4); White Blood Count 5.8 K/mm3 (4.5-10.0)
[2025-07-02 20:10] LABS: INR 0.9; Prothrombin Time 12.5 Seconds (11.1-14.7)
[2025-07-02 20:11] LABS: Alanine Aminotransferase 16 U/L (6-35); Albumin Level 4.3 g/dL (3.5-5.1); Alkaline Phosphatase 118 U/L (38-126); Anion Gap 8 mmol/L (4-12); Aspartate Amino Transferase 29 U/L (14-36); Bilirubin,Total 0.4 mg/dL (0.2-1.3); Blood Urea Nitrogen 23 mg/dL (7-17); Calcium 9.3 mg/dL (8.4-10.2); Carbon Dioxide 28 mmol/L (22-30); Chloride 103 mmol/L (98-107); Estimated CRCL calculation 22 ml/min; Estimated Glomerular Filt Rate 37; Glucose 125 mg/dL (65-110); Partial Thromboplastin Time 35.1 Seconds (22.3-36.8); Potassium 3.8 mmol/L (3.4-5.0); Sodium 139 mmol/L (137-145); Total Protein 7.4 g/dL (6.3-8.2)
[2025-07-02 20:15] LABS: Add Urine Microscopic? YES; Appearance Urine Cloudy (Clear); Glucose Urine UA 3+ mg/dL (Negative); Leukocyte Esterase Ur Trace LEU/UL (Negative); Need Manual Microscopic Reviewed; Nitrate Urine Negative (Negative); Specific Grav Ur 1.026 (1.001-1.035)
[2025-07-02 20:47] LABS: Thyroid Stimulating Hormone 0.117 uIU/mL (0.465-4.680)
[2025-07-02] MEDS: SODIUM CHLORIDE 0.9% IV 500 ML 999 ML IV CONT (22:13)
[2025-07-02] MEDS: CEPHALEXIN 500 MG CAPSULE PO (22:53)
[2025-07-02 22:58] LABS: Free T4 Free Thyroxine 0.90 ng/dL (0.78-2.19)
[2025-07-04 06:07] LABS: Triiodothyronine (T3), Free 2.8 pg/mL (2.0-4.4)
== END 2025-07-02 23:52 | disposition home or self-care (01) ==
PROVIDERS: Emergency Provider Student in an Organized Health Care Education/Training Program; PCP Family Medicine
DX: N95.0 Postmenopausal bleeding (principal); N17.9 Acute kidney failure, unspecified; I12.9 Hypertensive chronic kidney disease with stage 1 through stage 4 chronic kidney disease, or unspecified chronic kidney disease; N18.32 Chronic kidney disease, stage 3b; K76.0 Fatty (change of) liver, not elsewhere classified; N73.2 Unspecified parametritis and pelvic cellulitis; E05.90 Thyrotoxicosis, unspecified without thyrotoxic crisis or storm; R82.998 Other abnormal findings in urine; E78.5 Hyperlipidemia, unspecified; E55.9 Vitamin D deficiency, unspecified; M85.80 Other specified disorders of bone density and structure, unspecified site; M81.0 Age-related osteoporosis without current pathological fracture; F41.8 Other specified anxiety disorders; Z87.891 Personal history of nicotine dependence; Z85.41 Personal history of malignant neoplasm of cervix uteri; Z86.16 Personal history of COVID-19; Z90.710 Acquired absence of both cervix and uterus; Z79.899 Other long term (current) drug therapy
CPT/HCPCS: 36415; 74177; 80053; 81001; 84439; 84443; 84481; 85025; 85610; 85730; 87086; 96360; 99284; A9270; J7040; Q9967